=== PATIENT | male | born 1940 | race Caucasian/White ===

== ENCOUNTER 2024-01-24 22:00 | Inpatient (IN) | payer OTHER, SELFPAY ==
[2024-01-24 17:04] VITALS: BP 155/65
[2024-01-24 17:07] VITALS: BP 155/65
[2024-01-24 17:10] VITALS: BMI 25.9
[2024-01-24 17:36] LABS: % Basophils 0.4 % (0-2); % Eosinophils 2.8 % (0-6); % Immature Granulocytes 0.6 % (0-0.5); % Lymphocytes 15.7 % (20.5-51.1); % Monocytes 6.9 % (1.7-9.3); % Neutrophils 73.6 % (42.2-75.2); Absolute Eosinophils 0.3 10^3/uL (0-0.7); Absolute Immature Granulocytes 0.1 10^3/uL (0-0.05); Absolute Lymphocytes 1.4 10^3/uL (1.2-3.4); Absolute Monocytes 0.6 10^3/uL (0.1-0.6); Absolute Neutrophils 6.7 10^3/uL (1.4-6.5); Hematocrit 38.4 % (39.0-52.0); Hemoglobin 13.3 g/dL (13.0-18.0); Mean Corp Hgb Conc. 34.6 g/dL (33.0-37.0); Mean Corpuscular Volume 95.3 fL (80.0-94.0); Mean Platelet Volume 10.4 fL (7.4-10.4); Nucleated Red Blood Cells % 0 % (-); Platelet Count 147 10^3/uL (130-400); Red Blood Cell Count 4.03 10^6/uL (4.70-6.10); Red Cell Dist. Width 14.2 % (11.5-14.5)
[2024-01-24 17:50] LABS: ALT (SGPT) 50 U/L (0-50); AST (SGOT) 36 U/L (17-59); Albumin 3.7 g/dl (3.5-5.0); Alkaline Phosphatase 113 U/L (38-126); Blood Urea Nitrogen 18 mg/dl (9-20); Calcium 9.4 mg/dl (8.4-10.2); Carbon Dioxide 26 mmol/L (22-30); Chloride 109 mmol/L (98-107); Estimated Creatinine Clearance 61 ml/min; Glucose 95 mg/dl (70-99); Potassium 4.3 mmol/L (3.5-5.1); Sodium 140 mmol/L (135-145); Total Protein 6.3 g/dl (6.3-8.2); eGFR > 60.00
--- NOTE | 2024-01-24 18:08 | ED.CVA ---
History of Present Illness
General
Chief Complaint: CVA/TIA Symptoms
Source: patient, records, family, [facility] records
Exam Limitations: clinical condition
Time Seen by Provider: 01/24/24 17:04
Nursing documentation reviewed up to this point in time: agreed with
Onset of Stroke Symptoms
Onset of symptoms known: No
Time pt last seen normal is known: Yes
Date last time pt seen normal: 01/23/24
Travel History
Have you had any contact with someone who has COVID-19?: No
Do you have any symptoms of coronavirus? Fever > 100 degrees, chills, cough, shortness of breath, sore throat, loss of taste or smell, muscle aches, or headache?: No
History of Present Illness
History of Present Illness:
83-year-old male with a past medical history of hyperlipidemia, dementia who [facility] of right hemiparesis and aphasia. His family at bedside aids with history, he is somewhat limited
because of aphasia. He was in [facility] for rehab due to ambulatory dysfunction and falls. He had been doing well, walking with a walker and the plan was for him to return home where he lives independently in an apartment. Apparently today
when family came to pick him up to take him home he was noted to have right-sided weakness and aphasia. Onset somewhat unclear�it sounds like was normal last night and according to staff did full physical therapy without issues yesterday. They saw
him visibly this morning and he seemed to look well but no long conversation unclear if he had any speech issues. Family came to pick him up at around 2 PM and deficits noted and patient was sent to the ER. He is not on blood thinners.
Past History
Past History
ED Past Medical History: HTN
ED Past Surgical History: None
Review of Systems
Review of Systems
Unable to obtain full review of systems at this time due to: other (Aphasia)
All Other Systems: Not applicable
Phy Exam
Physical Exam
Physical Exam:
General: Awake, alert, oriented to person and place but was not able to tell me the month; no acute distress
Head: Normocephalic, atraumatic
Eyes: Conjunctiva normal, EOMI, pupils equal round and reactive to light bilaterally
Throat: Airway intact, handling secretions
Neck: Trachea midline, supple without meningismus
Lungs: Clear to auscultation bilaterally, no wheezing, rales, rhonchi
Heart: Regular rate and rhythm, no murmurs, gallops, or rubs
Abd: Soft, non distended, nontender
Neuro: Cranial nerves intact 2 through 12, speech is fluid without dysarthria but he does have moderate expressive aphasia; motor function intact left upper extremity, slight drift in the left lower extremity; patient has significant drift in the
right upper extremity and only slight effort to gravity in the right lower extremity
Skin: no rash
Extremities: No edema in extremities, equal pulses in all extremities
Scores
NIH Stroke Score
Level of Consciousness: 0 - Alert
LOC Questions: 2-Neither correct
LOC Commands: 1-Performs one correctly
Best Horizontal Gaze: 0-Normal
Visual Lewis: 0=Normal, no visual loss
Facial Palsy: 0=Normal, symmetrical
Motor - Right Arm: 1=Drift < 10 seconds
Motor - Left Arm: 0=No drift 10 seconds
Motor - Right Le-None vs. gravity
Motor - Left Le-Drift < 5 seconds
Limb Ataxia: 0-Absent
Sensation: 0-Normal
Best Language: 2-Severe aphasia
Dysarthria: 0-Normal
Extinction and Inattention: 0-No abnormality
Total Score:: 10
Thrombolytic Contraindication
Inclusion and Exclusion criteria reviewed: Yes
Reasons for NON-Tx with Thrombolytics ABSOLUTE Exclusions: Greater than 4.5 hrs from onset of sxs
Heart Failure Risk
Heart Failure Risk Score: Not Applicable
Heart Score for Chest Pain Patients
STEMI patient?: Not applicable
Withdrawal Assessment of Alcohol
Withdrawal Assessment Completed?: Not applicable
Course
Orders/Labs/Results
Orders:
Orders
01/24/24 17:13
Electrocardiogram (*1) Urgent
Reason for Study: TIA/Stroke
01/24/24 17:14
EKG- Treatment ONCE
01/24/24 17:19
CT Head W/o Iv Contrast Urgent
Comment:
Reason For Exam: right sided weakness
01/24/24 17:26
CMP [Comprehensive Metabolic Panel] Urgent
Complete Blood Count/With Diff Routine
01/24/24 18:09
CT Brain Perfusion Urgent
Comment:
Reason For Exam: right hemiparesis, aphasia
CT Head & Neck Angio W/wo IV Urgent
Comment:
Reason For Exam: right hemiparesis
01/24/24 18:11
Aspirin 325 mg PO NOW STA
01/24/24 19:50
Urinalysis Reflex To Culture Urgent
Date Specimen was Collected: 01/24/24
Time Specimen was Collected: 19:23
Urine Microscopic Reflex Cult Urgent
Urine Culture Urgent
REAL Source: U
Specimen Description:
Date Specimen was Collected: 01/24/24
Time Specimen was Collected: 19:23
01/24/24 20:25
NEUROLOGY CONSULT Urgent
Consulting Provider: Chuckie Nicole
Was physician already notified: Yes
01/24/24 20:26
Aspirin 300 mg RECTAL NOW STA
01/24/24 21:13
Admit/Transfer Patient As Directed
Co-Sign Provider:
Level of Care: Inpatient admission
Assign to:: Telemetry
Physician / Group: Dr. Villa
Diagnosis: CVA
Reason for Telemetry: CVA/TIA
Date to Stop Telemetry: 01/27/24
Time to Stop Telemetry: 11:00
Reason for Hospitalization: Patient presented with right side weakness and aphasia.
Expected length of stay greater than two midnights?: Yes
ELOS- Estimated Length of Stay in days: 2
I certify the patient meets the requirements for IP care: Yes
01/24/24 21:14
Code Status As Directed
Resuscitation Status: Do not resuscitate
Reached after discussion with pt or family/Healthcare POA: Yes
DNR Bracelet Application ONCE
01/24/24 22:24
Acetaminophen [Tylenol/Feverall] 650 mg RECTAL Q4HPRN PRN
Acetaminophen [Tylenol] 650 mg PO Q4HPRN PRN
01/24/24 22:24
Echo 2D MMode Color/Doppler Routine
Reason for Study: stroke/TIA
Case Management Consult ONCE
Case Management Consult: Discharge Planning
Comment: stroke/tia
DIETARY CONSULT Routine
Reason for Consult: stroke/TIA
Negative Turner Apprentice Urgent
MR Brain Without Contrast Routine
Comment:
Reason For Exam: stroke/TIA
OK for patient to be off Cardiac Monitoring for MRI: Yes
Recent pill cam endoscopy?: No
Activity As Directed
Activity Level: Out of Bed-Early Mobility
NIH Stroke Scale As Directed
Directions: Per protocol
Comment: every shift and with any change in condition or mental status
Neurological Checks As Directed
Frequency: q4h
Additional Instructions:: q4h x 24h upon admission to the floor, then qshift & with any change in condition
and mental status
Patient Education As Directed
Type: Stroke education packet
Comment: provide to patient and family
Pneumatic Compression Sleeves As Directed
Type: Knee high
Swallow Screening CVA/TIA ONLY As Directed
Comment: NPO until swallowing screening completed
If patient FAILS swallow screening:: NPO, Speech Therapy consult, Aspiration Precautions
If patient PASSES swallow screening, diet:: Cholesterol Lowering
Above diet order entered?: No- failed screening
Vital Signs As Directed
Frequency: Per unit guidelines
Ot Eval And Treat Routine
Pt Eval And Treat Routine
Activity Level: Out of Bed-Early Mobility
Speech Therapy Eval & Treat Routine
DX Deep Vein Thrombosis Video Routine
01/25/24 06:00
Basic Metabolic Panel IN AM
Cardiovascular Evaluation IN AM
Complete Blood Count/No Diff IN AM
Glycohemoglobin (HgbA1c) IN AM
01/25/24 08:00
Aspirin Low Dose EC [Aspir Low (Enteric Coated)] 81 mg PO DAILY
Clopidogrel Bisulfate [Plavix] 75 mg PO DAILY
01/25/24 18:00
Enoxaparin Sodium [Lovenox] 40 mg SC QPM
01/25/24 20:00
Atorvastatin [Lipitor] 40 mg PO DAILY@1999
01/27/24 11:00
DC Protocol for Telemetry ONCE
Abnormal Lab Results
01/24/24 01/24/24
17:26 19:50
RBC 4.03 L 10^6/uL
(4.70-6.10)
Hct 38.4 L %
(39.0-52.0)
MCV 95.3 H fL
(80.0-94.0)
MCH 33.0 H pg
(27.0-31.0)
Abs Immat Gran (auto) 0.1 H 10^3/uL
(0-0.05)
Absolute Neuts (auto) 6.7 H 10^3/uL
(1.4-6.5)
Immature Gran % 0.6 H %
(0-0.5)
Lymphocytes % 15.7 L %
(20.5-51.1)
Chloride 109 H mmol/L
(98-107)
Urine Ketones 2+ A
(Negative)
Ur Occult Blood Reflex 1+ A
(Negative)
Leukocyte Esterase Rfl 1+ A
(Negative)
Urine RBC 3-6 A /HPF
(0-2)
Urine WBC (Reflex) 21-25 A /HPF
(0-5)
Urine Bacteria (Reflex) Moderate A
(Negative)
01/24/24 17:26
01/24/24 17:26
Vital Signs
Initial and Last Documented VS:
Initial Vital Signs
Temp Pulse Resp BP Pulse Ox
36.7 C 67 13 155/65 96
01/24/24 17:04 01/24/24 17:04 01/24/24 17:04 01/24/24 17:04 01/24/24 17:04
Last Documented Vital Signs
Temp Pulse Resp BP Pulse Ox
37.0 C 77 20 157/73 95
01/24/24 22:47 01/24/24 22:47 01/24/24 22:47 01/24/24 22:47 01/24/24 22:47
MDM/Problems Addressed
Differential Diagnosis Includes:
CVA, complex migraine, seizure, hemorrhage, brain mass
MDM/Problems Addressed:
83-year-old male with a past medical history of hyperlipidemia, dementia who presents to the emergency room from [facility] for evaluation of right hemiparesis and aphasia. Onset somewhat unclear�it sounds like was normal last night and
today early afternoon noted to have right-sided weakness and aphasia. Hypertensive but otherwise normal vitals. Physical exam as above. NIH stroke scale 10. IV placed and labs sent off including a CBC and a CMP. EKG shows sinus rhythm. Sent
for CT head�no hemorrhage on my review, awaiting final radiology report. Case discussed with neurology as his presentation is concerning for an acute stroke�with onset unclear patient is not a candidate for tenecteplase. Recommended proceeding
with a CTA head and neck as well as a CT perfusion study. Treat with full dose aspirin. Reassess after the above. Anticipate admission pending initial assessment.
CTA head and neck no dissection or large vessel occlusion. Discussed with neurology who recommended full dose aspirin admit for continued treatment. Case discussed with hospitalist for admission.
Chronic conditions affecting care:
Hyperlipidemia�higher risk for stroke
Acute Exacerbation and/or Progression of Chronic Illness:
Acutely hypertensive�permissive in the setting of stroke
*Radiology
Radiology exam reviewed: preliminary read by ED provider and radiology read reviewed
*Pulse Oximetry
Patient hypoxic: no
*EKG
Interpreted by ED Provider?: Yes
Heart Rate: 66
Rate: normal
Rhythm: sinus
Hardy: left axis deviation
QRS Pattern: left vent hypertrophy
Ischemia: non-specific ST changes
*Critical Care Note
Total Time (30-74mins, 75-104mins- exclusive of procedures): Not Applicable
Data Reviewed
Source: patient, records (Records from [facility]) and family (Son and [id number])
Prescriptions/Medications Considered But Not Given:
Considered his candidacy for tenecteplase but after discussion with neurology patient is not a candidate for thrombolytics
Patient Management
Discussion with other providers: Hospitalist (Discussed with hospitalist) and Dormitory Counselor (Discussed with neurology)
Escalation/DeEscalation of care consider admission/obs:
Admission indicated
ED Attending Note
-
Portions of this chart may have been created with voice recognition software.� Occasional wrong word or��sound alike� substitutions may have occurred due to the inherent limitations of voice recognition software.
Discharge Plan
Departure
Patient Disposition: Admit
Date of Disposition: 01/24/24
Time of Disposition: 20:36
Admit to doctor: Villa
Presentation/result/management discussed w/ accepting MD/DO: Hospitalist
Patient with high blood pressure during this ER visit?: Yes
Discharge Problem:
CVA (cerebrovascular accident)
Interventions
Interventions:
*Risk Screen - Suicide Last Done: 01/24/24 17:05
*General Assessment Last Done: 01/24/24 17:10
*Neglect/Abuse Screening Last Done: 01/24/24 17:05
*ED COVID-19 Vaccine History Last Done: 01/24/24 17:10
*Nursing Disposition Last Done: 01/24/24 22:23
ED- Pulmonary Assessment Last Done: 01/24/24 17:10
ED- Neurological Assessment Last Done: 01/24/24 18:53
ED- Cardiac Assessment Last Done: 01/24/24 17:10
Discharge Date and Time
Discharge Date/Time: 01/24/24 22:24
[2024-01-24 18:57] VITALS: BP 145/66
[2024-01-24 19:56] LABS: Urine Albumin Negative (Neg - Trace); Urine Bilirubin Negative (Negative); Urine Character Clear (Clear); Urine Color Yellow; Urine Glucose Negative (Negative); Urine Ketone 2+ (Negative); Urine Leukocyte 1+ (Negative); Urine Nitrite Negative (Negative); Urine Occult Blood 1+ (Negative); Urine Urobilinogen Negative (Neg - 1+)
[2024-01-24 20:15] LABS: Urine Bacteria Moderate (Negative); Urine White Cell 21-25 /HPF (0-5)
--- NOTE | 2024-01-24 21:17 | HPS.HSE ---
Family Physician
-
Family Physician: Morgan Lerma
Chief Complaint
-
Aphasia and right-sided weakness.
History of Present Illness
Patient 83 years old male [id number] with history of hyperlipidemia, TIA/CVA, aortic aneurysm, probable mild vascular cognitive deficits, presented to the hospital with sudden onset of right-sided weakness and aphasia. Most of the
information gathered from family at the bedside and EMR since patient has aphasia and unable to provide me with accurate information. Patient lives at [facility] and he was about to be discharged today and when his family went to
pick him up noticed that he was not able to shake his hand on the right side and also he was repeating same words when asked questions and also noticed he had some slurred speech. Last time seen normal was around 11 PM last night by staff. Family
saw him with right-sided weakness and aphasia around 2 PM today. No fevers or chills. No chest pain or shortness of breath. In the ER, CT of the head no acute intracranial abnormality, CT of the head and neck no evidence of high-grade stenosis or
occlusion. He was referred to hospitalist for further evaluation.
Medical History
Past Medical History
Past Medical History: Reports Other (Hyperlipidemia, CVA/TIA, aortic aneurysm, interstitial lung disease.)
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
Social History
Tobacco: Former Smoker
Alcohol: Occasional
Drug: None
Family History
Family History: Not pertinent
Allergies / Home Medications
Allergies reflects when Allergies were last updated in [employer].
Home Medications with original date entered in [employer]
Allergy/Medication List:
Allergies
Allergy/AdvReac Type Severity Reaction Status Date / Time
No Known Allergies Allergy Verified 03/09/23 20:07
Home Medications
acetaminophen 500 mg tablet 1,000 mg PO TID@0800,1400,2000 01/24/24
aspirin 81 mg tablet,delayed release 81 mg PO DAILY 01/24/24
atorvastatin 40 mg tablet 40 mg PO DAILY@199901/24/24
diclofenac sodium 1 % topical gel 1 g topical BID PRN mild pain 01/24/24
Review of Systems
-
Unable to obtain full review of systems at this time due to: Other (Aphasia)
Physical Exam
Vital Signs
Vital Signs
Temp Pulse Resp BP Pulse Ox
98.0 F 73 20 145/66 94
01/24/24 17:04 01/24/24 17:30 01/24/24 17:30 01/24/24 18:57 01/24/24 19:47
Physical exam:
General: Acutely ill
HEENT: Normocephalic, Atraumatic and Moist Mucous Membranes
Respiratory: Clear to Auscultation; Negative Wheezes, Rales or Rhonchi
Cardiac: Regular Rhythm and S1/S2
GI: Soft, Nontender and Nondistended
Musculoskeletal: No Clubbing, No Cyanosis and No Edema
Neuro: Awake, Alert and Oriented. Right upper extremity weakness 4 out of 5, mild sensory deficit on the right, mild left cranial nerve facial deficit and rest of cranial nerves are intact. Aphasia present.
Psych: Calm
Physical Exam
General: Other
Laboratory Results
-
01/24/24 17:26
01/24/24 17:26
Laboratory Results
Total Bilirubin 1.0 mg/dl (0.2-1.3) 01/24/24 17:26
AST 36 U/L (17-59) 01/24/24 17:26
ALT 50 U/L (0-50) 01/24/24 17:26
Alkaline Phosphatase 113 U/L (38-126) 01/24/24 17:26
Data Reviewed
-
CT Scan: Image Personally Visualized and interpreted
Lab Data: Labs Reviewed by me
Impression/Plan
-
IMPRESSION:
Patient 83 years old male with history of hyperlipidemia, TIA/CVA, presented to the hospital with sudden onset of right-sided weakness and aphasia consistent with acute stroke, likely ischemic in nature. Patient will need to be in the hospital
otherwise at high risk of increased morbidity mortality and disability.
PLAN:
Acute stroke:
Not a candidate for TNKase due to being out of the time window.
CT scan of the head no acute intracranial abnormality
CTA of the head and neck no significant stenosis
CT perfusion study
Continue aspirin--> if unable to take oral can do rectal
Will add Plavix for dual antiplatelet therapy for 3 weeks.
Continue statins and check fasting lipids in a.m.
Permissive hypertension
Keep euglycemia and normothermia
Check hemoglobin A1c in a.m.
PT OT and speech therapy eval
Plan for stroke workup including MRI of the brain, echocardiogram, cardiac monitoring.
Monitor NIH stroke scale.
Neurology consulted
Hyperlipidemia:
Continue home statins
LDL in a.m.
Prior history of TIA/CVA:
On aspirin and statins
Abnormal urinalysis:
Pyuria 21-25 WBC and moderate urine bacteria
Currently afebrile and no leukocytosis so hold off on antibiotics but follow-up urine cultures
Low threshold to start antibiotics if any signs of active infection.
DVT prophylaxis:
Lovenox 40 mg SQ daily
CODE STATUS:
DNR and confirmed with family at bedside
Time spent 75 minutes.
[2024-01-24 22:47] VITALS: BP 157/73
--- NOTE | 2024-01-24 22:47 | PTCARENOTE ---
Pt arrived from ED via stretcher and was a puller out to bed w/ son at bedside. Pt is AAOx1- according to son patient was AAOx3 as of yesterday, VSS, and complains of lower back pain when turning due to recent fall. Pt is bedrest due to new onset of
weakness- RN educated patient and placed on bed alarm. Pt is resting comfortably w/ call ch within reach.
[2024-01-24] MEDS: ASPIRIN 300 MG RECTAL (23:53)
[2024-01-24] MEDS: DESENEX/MITRAZOL/ZEASORB 1 APPLIC TOPICAL (23:53)
[2024-01-25] VITALS (8 sets, daily range): BP systolic 124–149; BP diastolic 54–74; PULSE 65–68; O2SAT 92
[2024-01-25 07:23] LABS: Hematocrit 37.2 % (39.0-52.0); Hemoglobin 12.8 g/dL (13.0-18.0); Mean Corp Hgb Conc. 34.4 g/dL (33.0-37.0); Mean Corpuscular Hgb 32.7 pg (27.0-31.0); Mean Corpuscular Volume 94.9 fL (80.0-94.0); Mean Platelet Volume 10.9 fL (7.4-10.4); Platelet Count 139 10^3/uL (130-400); Red Blood Cell Count 3.92 10^6/uL (4.70-6.10); Red Cell Dist. Width 14.2 % (11.5-14.5); White Blood Cell Count 8.3 10^3/uL (4.8-10.8)
[2024-01-25 07:57] LABS: Blood Urea Nitrogen 16 mg/dl (9-20); Calcium 9.2 mg/dl (8.4-10.2); Carbon Dioxide 24 mmol/L (22-30); Chloride 107 mmol/L (98-107); Estimated Creatinine Clearance 61 ml/min; Glucose 84 mg/dl (70-99); HDL Cholesterol 30 mg/dl; LDL Cholesterol, Calculated 62 mg/dl; Potassium 4.2 mmol/L (3.5-5.1); Sodium 139 mmol/L (135-145); Total Cholesterol 115 mg/dl (50-199); Triglyceride 115 mg/dl (10-149); Very Low Density Lipoprotein 23 mg/dl (0-30); eGFR > 60.00
[2024-01-25 09:11] LABS: Glycohemoglobin (HgbA1c) 5.6 % (4.0-5.6)
--- NOTE | 2024-01-25 09:35 | CON.NEURO4 ---
Addendum entered and electronically signed by Chuckie Nicole MD 01/25/24 12:40:
I saw and evaluated patient I reviewed the note by Radha Haddad agree with the findings the following comments:
The patient is a 83-year-old man with a past history of previous right sided temporoparietal ischemic stroke, interstitial lung disease cognitive impairment, hypertension presenting to the hospital with onset of right arm weakness and aphasia. His
last known normal seemed to be the evening of 01/22, brought into the ED with unclear onset of symptoms but clearly seem to have speech difficulty and right arm weakness when his family saw him at 2 PM yesterday afternoon. He was brought into the ER
and was outside the window for tenecteplase and had no large vessel occlusion on CTA of the head and neck.
Patient's family reports consistence with aspirin 81 mg daily since her previous ischemic stroke.
Neurologic examination notable for mild/moderate expressive and receptive aphasia, minimal dysarthria, right arm weakness and drift, minimal right arm and leg weakness without any drift.
CTA of the head and neck with no identifiable large vessel occlusion intracranially no significant carotid stenosis
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 Risk factors are hypertension hyperlipidemia age and previous ischemic stroke. Considerations are atheroembolic source but also need to keep in mind cardioembolic source possibly occult atrial
fibrillation.
Recommendations
-Would continue on aspirin daily, rectal if necessary if not able to take p.o.
-Depending on stroke size on brain imaging would consider addition of clopidogrel for DAPT therapy for short-term of 3 weeks
-Speech physical Occupational Therapy evaluations
-Cardiac telemetry and check transthoracic echocardiogram
-Would pursue cardiac monitoring in the outpatient setting would be reasonable to short-term cardiac monitoring if no arrhythmias are found then would transition to implanted rn cardiac rehab
-MRI brain without contrast
Will follow
Original Note:
Documented by User: Radha Atkinson NP 01/25/24 12:21
Consultation - Neurology 4
-
CONSULTING PHYSICIAN: Arcenio Nicole MD
REFERRING PHYSICIAN: ER/Dr. Rodney
DICTATED BY: HUNG Muñoz
DATE/TIME OF REQUEST: 01/24/24
DATE/TIME OF CONSULTATION: 01/25/24
Reason for Consultation: CVA
History of Present Illness:
This is an 83-year-old right-handed male who has presented to the hospital as a stroke alert with report of aphasia and right arm weakness. Patient is a limited historian due to aphasia/confusion and some of this information is obtained from his
[id number] at bedside. Patient lives in an apartment at [facility] and has a home health aide or his [id number] with him daily for assistance. He has been in their rehab section for the past week due to ambulatory dysfunction and
frequent falls. At baseline he has cognitive impairment/concern for dementia, and ambulates with a rolling walker. Nursing staff reports last seeing him at his baseline on 01/23/24 at 2300. Yesterday (01/24/24), his family came to pick him up at 1400
as he was being discharged home, and noted that he was repeating his words, unable to answer questions, and his right arm/leg were profoundly weak, prompting him to be sent to the ER for evaluation. CT head was obtained and is negative for any acute
abnormalities but demonstrates an old right temporoparietal ischemic infarct. CTA head/neck was negative for LVO. NIHSS in the ER was 10. Patient was not a candidate for TNK/IAT due to outside of time window and no LVO for intervention. He failed
his swallow evaluation and was provided a full dose rectal aspirin in the ER. Today (01/25/24), patient has moderate receptive/expressive aphasia and RUE weakness/neglect. ROS is not accurate due to aphasia, but he offers no complaints. About 8 years
ago (2015) he developed left facial drooping and was hospitalized at [facility] for a few days for an ischemic stroke. His facial droop resolved and he has no other deficits from that event. He has been taking aspirin 81mg daily since then. In 2020 he was
hospitalized for an extended period and was reportedly not moving at all for one week, unclear cause. He had Covid several months after that and had a decline cognitively, and was subsequently moved to [facility] in 2021.
Past Medical History: Right temporoparietal ischemic stroke, cognitive impairment, HTN, HLD, pulmonary nodules, interstitial lung disease, ambulatory dysfunction, frequent falls
Surgical History: AAA repair, knee replacement
Family History: Reviewed and noncontributory.
Social History: Former smoker. Denies alcohol and illicit drug use. Lives independently in an apartment, walks with a walker.
Allergies: No known allergies.
Home Medications: See below.
Review of Symptoms:
Patient denies any fever, headache, chest pain, shortness of breath, GI or symptoms.
�Per the HPI.�All systems are reviewed negative except above.
Physical Exam:
The patient is afebrile, abdomen is nondistended, breathing is unlabored, skin is warm and dry, no edema.
NIH Stroke Scale:
I performed the NIH stroke scale on the patient on 01/25/24 at 0930. The patient scored 9 points on the NIH stroke scale assessment, which were assigned as follows: See below.
Neurologic Examination:
The patient is awake, alert and oriented to name only, not time/place/situation. He is able to follow some one-step commands and answer questions rare questions appropriately. Unable to perform two-step commands. There is severe
expressive/receptive aphasia. No dysarthria. On cranial nerve assessment, pupils are 3 mm bilateral, round and reactive to light and accommodation. Visual lewis are challenging to assess but appear grossly intact. Extraocular movements are intact.
There is no facial asymmetry. Hearing is intact bilaterally to normal conversation volume. Tongue palate and uvula are midline. Motor strengths are 5/5 left upper, 4/5 right upper, 5/5 left lower, and 5-/5 right lower extremities on medical research
Court[place] scale. There is drift in the RUE. No involuntary movement noted. Deep tendon reflexes are 1+ bilateral upper and lower extremities and Babinski is absent bilaterally. SHARMIN sensation. Patient has right-sided neglect to command and with touch.
Coordination is intact by finger to nose in the LUE, not the RUE. SHARMIN heel to landers.
Lab Results: See below.
Neuro Imaging:
1. CT Head 01/24/24: No acute intracranial abnormality. Region of low attenuation at the right temporoparietal junction measuring 2.3 cm in length, near CSF attenuation and favored to represent a chronic infarct.
2. CTA head/neck 01/24/24: No CT evidence for high-grade stenosis or occlusion of the arterial vasculature in the head or neck. Calcified atherosclerosis at the bilateral carotid bifurcations contributing to less than 50% stenosis.
3. CT Perfusion 01/24/24: See report.
Differentials for the patient's presentation include:
1. Acute left hemisphere ischemic infarct likely producing RUE weakness/neglect and aphasia.
2. CT head imaging suggestive of an old right temporoparietal junction ischemic stroke.
3. Chronic ambulatory dysfunction.
4. Cognitive impairment/possible dementia
Patient has the following risk factors for their symptoms: HTN, HLD, hx stroke
IV Tenecteplase/IAT candidacy: Patient was not a candidate for TNK/IAT due to outside of time window and no LVO for intervention.
Recommendations:
-DAPT with aspirin 81mg and Plavix 75mg daily for 21 days. After 21 days, discontinue aspirin and continue Plavix 75mg daily only, indefinitely, as this event occurred while on aspirin.
-Goal normotension as this event likely occurred 24 hours ago.
-MRI brain noncontrast pending.
-TTE pending.
-Monitor on telemetry. Will likely need outpatient Holter cardiac monitoring for several weeks as an outpatient.
-LDL goal <70. LDL is 62. Okay to continue home atorvastatin as LDL is at goal.
-Goal normoglycemia, hbA1c is 5.6.
-PT/OT/ST evaluations.
-NIHSS and neurological checks per unit guidelines.
-Provide patient's family with a stroke education packet.
-DVT prophylaxis.
-Will follow pending results.
Discussed patient care with: Dr. Nicole, the patient, patient's family
Vital Signs and Labs
-
Vital Signs and Labs:
Vital Signs
Temp Pulse Resp BP Pulse Ox
98.6 F 69 16 148/69 92
01/25/24 07:00 01/25/24 07:00 01/25/24 07:00 01/25/24 07:00 01/25/24 07:00
Lab Results
01/25/24 06:11
01/25/24 06:11
Sodium 139 mmol/L (135-145) 01/25/24 06:11
Potassium 4.2 mmol/L (3.5-5.1) 01/25/24 06:11
BUN 16 mg/dl (9-20) 01/25/24 06:11
Glucose 84 mg/dl (70-99) 01/25/24 06:11
Calcium 9.2 mg/dl (8.4-10.2) 01/25/24 06:11
LDL Cholesterol, Calc 62 mg/dl 01/25/24 06:11
Medications
-
Active Medications
Generic Name Dose Route Start Last Admin
Trade Name Freq PRN Reason Stop Dose Admin
Acetaminophen 650 mg 01/24/24 22:24
Acetaminophen 650 Mg Rectal Suppository RECTAL 02/21/24 22:23
Q4HPRN PRN
HODGE, mild pain, or temp >100.4F
Acetaminophen 650 mg 01/24/24 22:24
Acetaminophen 325 Mg Tablet PO 02/21/24 22:23
Q4HPRN PRN
HODGE, mild pain, or temp >100.4F
Aspirin 81 mg 01/25/24 08:00
Aspirin 81 Mg (Enteric Coated) Tablet PO 02/22/24 07:59
DAILY SUSY
Atorvastatin Calcium 40 mg 01/25/24 20:00
Atorvastatin (Lipitor) 40 Mg Tablet PO 02/22/24 19:59
DAILY@2000 SUSY
Clopidogrel Bisulfate 75 mg 01/25/24 08:00
Clopidogrel 75 Mg Tablet PO 02/22/24 07:59
DAILY SUSY
Enoxaparin Sodium 40 mg 01/25/24 18:00
Enoxaparin Sodium 40 Mg/0.4 Ml Syringe SC 02/22/24 17:59
QPM SUSY
Miconazole Nitrate 0 applic 01/24/24 23:00 01/25/24 09:40
Miconazole Powder Bottle TOPICAL 02/21/24 22:59 1 applic
BID SUSY Administration
Sodium Chloride 0 flush 01/24/24 23:00 01/25/24 09:40
Sodium Chloride 0.9% (Flush) Syringe IV 02/21/24 22:59 2 flush
PER PROTOCOL SUSY Administration
Home Medications
�Medication �Instructions �Recorded
acetaminophen 500 mg tablet 1,000 mg PO TID@0800,1400,199901/24/24
aspirin 81 mg tablet,delayed 81 mg PO DAILY 01/24/24
release
atorvastatin 40 mg tablet 40 mg PO DAILY@199901/24/24
diclofenac sodium 1 % topical gel 1 g topical BID PRN mild pain 01/24/24
NIH Stroke Score
Subsequent NIH Scale
Date of Subsequent NIH Scale: 01/25/24
Time of Subsequent NIH Scale: 09:30
NIH Stroke Score
Level of Consciousness: 0 - Alert
LOC Questions: 2-Neither correct
LOC Commands: 1-Performs one correctly
Best Horizontal Gaze: 0-Normal
Visual Lewis: 0=Normal, no visual loss
Facial Palsy: 0=Normal, symmetrical
Motor - Right Arm: 1=Drift < 10 seconds
Motor - Left Arm: 0=No drift 10 seconds
Motor - Right Le-No drift 5 seconds
Motor - Left Le-No drift 5 seconds
Limb Ataxia: 1-Present in one limb
Sensation: 0-Normal (SHARMIN)
Best Language: 2-Severe aphasia
Dysarthria: 0-Normal
Extinction and Inattention: 2-Total jose inattention
Total Score:: 9
Modified Kenji (mRS) Score
Modified Kenji Scale (mRS): Moderately severe disability. Unable to attend to bodily needs/walk.
Score: 4
Alteplase Contraindication
Inclusion and Exclusion criteria reviewed: Yes
Reasons for NON-Tx with Thrombolytics ABSOLUTE Exclusions: Greater than 4.5 hrs from onset of sxs
IAT Contraindications: Imaging doesn't show large vessel occlusion as cause of stroke

Documented by User: Chuckie Nicole MD 01/25/24 12:36
NIH Stroke Score
NIH Stroke Score
Total Score:: 9
Modified Uneeda (mRS) Score
Score: 4
[2024-01-25] MEDS: OFIRMEV 100 IV (09:39)
[2024-01-25] MEDS: FLUSH (NSS) 2 FLUSH IV (09:40)
[2024-01-25] MEDS: DESENEX/MITRAZOL/ZEASORB 1 APPLIC TOPICAL ×2 (09:40→20:30)
--- NOTE | 2024-01-25 09:48 | PTOTSP ---
Addendum entered and electronically signed by ST Graham 01/25/24 12:43:
Addendum: Suspect functional oral/pharyngeal swallow to initiate diet below based on clinical bedside swallowing evaluation.
Recommend:
1. Regular (pick soft foods, avoid mixed consistences), thin liquids
2. Meds - as best tolerated; consider in applesauce
3. Strategies: full supervision, upright as close to 90 degrees as tolerated, small single sips/bites, liquid wash as needed to clear oral cavity
4. Oral care 3x daily
5. Dysphagia f/u at the acute care level for education and to ensure appropriate diet.
Original Note:
LENS GENERATING MACHINE TENDER Evaluation
Quick Aphasia Battery Form 1 administered. QAB overall - 2.99. Patient with severe mixed aphasia with some ability to repeat at the word to phrase level. Patient unable to read. Writing not assessed (right hand dominant and right hand weak). No
dysarthria observed. Baseline history of mild cognitive impairments noted. Urine analysis abnormal this admission.
Strategies: Give simple commands paired with direct models. Use yes/no questions. Give binary choices (i.e., 'Do you want water or juice?').
Recommend:
1. Continued assessment at the acute care level.
2. Therapy after D/C from the acute care level. Inpatient rehab appropriate.
3. Swallow evaluation as able/appropriate.
--- NOTE | 2024-01-25 10:44 | W.PN.HOSP.TC ---
Today's Communication/Plan
-
see plan
Assessment / Plan
Assessment / Plan
IMPRESSION:
Patient 83 years old male with history of hyperlipidemia, TIA/CVA, recent lumbar compresion fracture presented to the hospital with sudden onset of right-sided weakness and aphasia consistent with acute stroke, likely ischemic in nature. TPA not
given given unclear time of onset.
PLAN:
Acute stroke:
-Not a candidate for TNKase due to being out of the time window.
-CT scan of the head no acute intracranial abnormality
-CTA of the head and neck no significant stenosis
-CT perfusion study
-continue aspirin--> if unable to take oral can do rectal
-continue Plavix for dual antiplatelet therapy for 3 weeks.
-Continue statins and check fasting lipids in a.m.
-Permissive hypertension
-Check hemoglobin A1c in a.m.
-PT OT and speech therapy eval
-Plan for stroke workup including MRI of the brain, echocardiogram, cardiac monitoring.
-Monitor NIH stroke scale.
-Neurology consulted
Hyperlipidemia:
Continue home statins
LDL in a.m.
Prior history of TIA/CVA:
On aspirin and statins
Lumbar spine compression fracture
-recently diagnosis
-difficult with mobility
-resume lidocaine patch
-topical diclofenac PRN
Abnormal urinalysis:
Pyuria 21-25 WBC and moderate urine bacteria
Currently afebrile and no leukocytosis so hold off on antibiotics but follow-up urine cultures
Low threshold to start antibiotics if any signs of active infection.
DVT prophylaxis:
Lovenox 40 mg SQ daily
CODE STATUS:
DNR and confirmed with family at bedside
Anticipated Discharge: 24 - 48 hours
Subjective/Interval History
-
Date of Service: January 25, 2024
back pain now on-going for 2 weeks, reason he was at rehab; hx compression fracture
right arm strength improving per daughter, expressive aphasia mildly improved
Objective Data
-
Labs:
Laboratory Results
01/25/24
06:11
WBC 8.3
Hgb 12.8 L
Hct 37.2 L
Plt Count 139
Sodium 139
Potassium 4.2
Chloride 107
Carbon Dioxide 24
BUN 16
Creatinine 0.8
Glucose 84
Calcium 9.2
Vital Signs:
Vital Signs
Temp Pulse Resp BP Pulse Ox
98.6 F 69 16 148/69 92
01/25/24 07:00 01/25/24 07:00 01/25/24 07:00 01/25/24 07:00 01/25/24 07:00
Review of Systems
-
History Source: Patient
All other systems: Reviewed and negative
Physical Exam
-
General: No Apparent Distress
HEENT: PERRLA
Respiratory: Clear to Auscultation; Negative Wheezes
Cardiac: S1/S2
GI: Soft and Nontender
Musculoskeletal: No Edema
Skin: Warm and Dry; Negative Rash
Neuro: AO x 3 and Other (needs help with orientation to place; + right upper extremities weakness, + expressive aphasia )
Psych: Calm
Data Reviewed
-
Diagnostic Radiology: Report Reviewed by me
Labs: Labs Reviewed by me
[2024-01-25 12:07] LABS: TSH Reflex To Free T4 1.83 uIU/ml (0.47-4.68)
[2024-01-25 12:11] LABS: Ferritin 91.3 ng/ml (17.9-464.0)
[2024-01-25] MEDS: LIDOCAINE 4% PATCH 1 PATCH TOPICAL (12:23)
[2024-01-25] MEDS: ASPIR LOW (ENTERIC COATED) 81 MG PO (12:31)
[2024-01-25] MEDS: PLAVIX 75 MG PO (12:31)
[2024-01-25 12:42] LABS: Folate > 20.0 ng/ml (2.76-20)
--- NOTE | 2024-01-25 15:31 | CM ---
Alert awake forgetful patient who lives at [facility] independent living.Met with son Cedrick at bedside.bathroom. He is assisted in all activities of daily living.Son is unsure if he wants [facility] at pr.Spoke with Olinda at [facility] she is
aware.
No VN hx / [facility] SN[facility] history
Pharmacy [facility] at [facility]
PCP DR Kaba
PLAN Probable SNF family will let CM know
[2024-01-25] MEDS: DICLOFENAC 1% TOPICAL GEL 2 GRAM TOPICAL ×2 (15:50→18:03)
[2024-01-25] MEDS: TYLENOL 1000 MG PO ×2 (17:05→21:45)
[2024-01-25] MEDS: LOVENOX 40 MG SC (18:02)
[2024-01-25] MEDS: LIPITOR 40 MG PO (20:29)
[2024-01-25] MEDS: DICLOFENAC 1% TOPICAL GEL 100 GRAM TOPICAL (21:45)
[2024-01-26] VITALS (7 sets, daily range): BP systolic 104–137; BP diastolic 48–60; PULSE 75; O2SAT 96
[2024-01-26] MEDS: ASPIR LOW (ENTERIC COATED) 81 MG PO (09:30)
[2024-01-26] MEDS: PLAVIX 75 MG PO (09:30)
[2024-01-26] MEDS: TYLENOL 1000 MG PO ×3 (09:30→21:41)
[2024-01-26] MEDS: DICLOFENAC 1% TOPICAL GEL 100 GRAM TOPICAL (09:30)
[2024-01-26] MEDS: DESENEX/MITRAZOL/ZEASORB 1 APPLIC TOPICAL ×2 (09:31→19:39)
[2024-01-26] MEDS: FLUSH (NSS) 1 FLUSH IV (09:31)
[2024-01-26] MEDS: LIDOCAINE 4% PATCH 1 PATCH TOPICAL (11:31)
--- NOTE | 2024-01-26 11:36 | W.PN.NEURO.1 ---
Today's Communication / Plan
-
await official mri brain read
continue dapt, atorvastatin
Neuro Assessment/Plan
Assessment
The patient is a 83-year-old man with a past history of previous right sided temporoparietal ischemic stroke, interstitial lung disease cognitive impairment, hypertension presenting to the hospital with onset of right arm weakness and aphasia. His
last known normal seemed to be the evening of 01/22, brought into the ED with unclear onset of symptoms but clearly seem to have speech difficulty and right arm weakness. He was brought into the ER and was outside the window for tenecteplase and had
no large vessel occlusion on CTA of the head and neck.
Patient's family reports consistence with aspirin 81 mg daily since her previous ischemic stroke. This stroke was about 8 years ago and was treated at [place]. Etiology unknown per his DIL.
His aphasia and right sided weakness have significantly improved compared to yesterday.
CTA of the head and neck with no identifiable large vessel occlusion intracranially no significant carotid stenosis
MRI brain pending
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 Risk factors are hypertension, hyperlipidemia, age, and previous ischemic stroke. Considerations are atheroembolic source but also need to keep in mind cardioembolic source possibly occult atrial
fibrillation.
Plan
Recommendations
-continue DAPT therapy for short-term of 3 weeks, then ASA 81mg daily after.
-await MRI brain official read--reviewed my prelim read with patient and family
-Speech physical Occupational Therapy evaluations; family interested in having him go to [place] after d/c
-Cardiac telemetry; reviewed echo results
-already on atorva 40mg qhs; continue; ldl at goal at 62; goal is <70
-hgba1c is normal at 5.6.
-Would pursue cardiac monitoring in the outpatient setting would be reasonable to short-term cardiac monitoring if no arrhythmias are found then would transition to implanted electronic device monitor; will need to see cardiology as an outpatient; does not
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
-needs op neurology f/u in 2-3 mos
Will follow prn, please call with further questions
Subjective/Objective
Subjective Data
Date of Service: January 26, 2024
aphasia and R arm weakness significantly improved compared to yesterday's exam; COLLIN has noticed some issues with his depth perception
Objective Data
Vital Signs
Temp Pulse Resp BP Pulse Ox
97.2 F 54 18 115/48 96
01/26/24 07:55 01/26/24 07:55 01/26/24 07:55 01/26/24 07:55 01/26/24 07:55
Lab Results
01/25/24 06:11
01/25/24 06:11
Sodium 139 mmol/L (135-145) 01/25/24 06:11
Potassium 4.2 mmol/L (3.5-5.1) 01/25/24 06:11
BUN 16 mg/dl (9-20) 01/25/24 06:11
Glucose 84 mg/dl (70-99) 01/25/24 06:11
Calcium 9.2 mg/dl (8.4-10.2) 01/25/24 06:11
LDL Cholesterol, Calc 62 mg/dl 01/25/24 06:11
Patient Allergies
No Known Allergies Allergy (Verified 03/09/23 20:07)
Physical Exam
-
General: Well Developed, Well Nourished and No Apparent Distress
Extended Neurological Exam
Mood & Affect: Mood Unremarkable and Affect Unremarkable
Attention Span & Concentration: Awake, Alert, Interactive and Other (at times a vague historian)
Memory: Reduced
Tremor: Hand Tremor Absent and Head Tremor Absent
Involuntary Movement: None
Speech: Other (aphasia resolved beyond issue naming one object)
Cranial Nerve II: Left Eye: Pupillary Reactivity Unremarkable and Pupillary Size Unremarkable
Cranial Nerve II: Right Eye: Pupillary Reactivity Unremarkable and Pupillary Size Unremarkable
Cranial Nerves III, IV, : Extraocular Movement: Extraocular Movement Full in all Directions
Cranial Nerve V: Facial Sensation: Facial Sensation Unremarkable to Cold
Cranial Nerve VII: Facial Symmetry: Normal Facial Symmetry
Cranial Nerve VIII: Hearing: Unremarkable Hearing to Normal Conversational Volume
Cranial Nerves IX, X: Palate Movement: Palate Elevation Symmetric
Cranial Nerve XI: Shoulder Shrug: Unremarkable
Cranial Nerve XII: Tongue Protusion: Midline
Muscle Strength, Overall: Other (4/5 in RUE, otherwise full)
Muscle Bulk & Tone: Bulk Unremarkable
Deep Tendon Reflexes: Unremarkable Throughout
Cold Sensation: Unremarkable
Touch Sensation: Unremarkable
Coordination: Dnhqst-usfb-khairc Testing Unremarkable
Babinski Sign: Absent Bilaterally
NIH Stroke Scale
NIH Stroke Score
Date of Subsequent NIH Scale: 01/26/24
Time of Subsequent NIH Scale: 11:30
Level of Consciousness: 0 - Alert
LOC Questions: 2-Neither correct
LOC Commands: 0-Performs both correctly
Best Horizontal Gaze: 0-Normal
Visual Lewis: 0=Normal, no visual loss
Facial Palsy: 0=Normal, symmetrical
Motor - Right Arm: 2=Partial vs. gravity
Motor - Left Arm: 0=No drift 10 seconds
Motor - Right Le-No drift 5 seconds
Motor - Left Le-No drift 5 seconds
Limb Ataxia: 0-Absent
Sensation: 0-Normal
Best Language: 1-Mild aphasia
Dysarthria: 0-Normal
Extinction and Inattention: 0-No abnormality
Total Score:: 5
--- NOTE | 2024-01-26 12:04 | W.PN.HOSP.TC ---
Today's Communication/Plan
-
F/U MRI
F/U repeat PT/OT consults now that back pain better controlled
-appreciate neurology
Assessment / Plan
Assessment / Plan
IMPRESSION:
Patient 83 years old male with history of hyperlipidemia, TIA/CVA, recent lumbar compresion fracture presented to the hospital with sudden onset of right-sided weakness and aphasia consistent with acute stroke, likely ischemic in nature. TPA not
given given unclear time of onset.
PLAN:
Acute stroke:
-Not a candidate for TNKase due to being out of the time window.
-CT scan of the head no acute intracranial abnormality
-CTA of the head and neck no significant stenosis
-CT perfusion study
-continue aspirin--> if unable to take oral can do rectal
-continue Plavix for dual antiplatelet therapy for 3 weeks.
-Continue statin
-F/U MRI results
-PT/OT/ST
Hyperlipidemia:
Continue home statins
LDL 63
Prior history of TIA/CVA
Lumbar spine compression fracture
-recently diagnosis
-difficult with mobility
-resume lidocaine patch
-topical diclofenac PRN
-pain improved morning 01/25
-F/U repeat PT/OT consults
Abnormal urinalysis:
Pyuria 21-25 WBC and moderate urine bacteria
Currently afebrile and no leukocytosis so hold off on antibiotics but follow-up urine cultures
Low threshold to start antibiotics if any signs of active infection.
asymptomatic bacteruria - no need to treat
DVT prophylaxis:
Lovenox 40 mg SQ daily
CODE STATUS:
DNR and confirmed with family at bedside
Anticipated Discharge: 24 - 48 hours
Subjective/Interval History
-
Date of Service: January 26, 2024
back pain much improved
sitting in chair
Objective Data
-
Vital Signs:
Vital Signs
Temp Pulse Resp BP Pulse Ox
98.0 F 63 18 137/60 95
01/26/24 11:37 01/26/24 11:37 01/26/24 11:37 01/26/24 11:37 01/26/24 11:37
I&O
01/25/24 01/26/24 01/27/24
06:59 06:59 06:59
Intake Total 940 / 940
Balance 940 / 940
Review of Systems
-
History Source: Patient
All other systems: Reviewed and negative
Physical Exam
-
General: No Apparent Distress
HEENT: PERRLA
Respiratory: Clear to Auscultation; Negative Wheezes
Cardiac: S1/S2
GI: Soft and Nontender
Musculoskeletal: No Edema
Skin: Warm and Dry; Negative Rash
Neuro: AO x 3 and Other (needs help with orientation to place; + right upper extremities weakness, + expressive aphasia )
Psych: Calm
Data Reviewed
-
Diagnostic Radiology: Report Reviewed by me
Labs: Labs Reviewed by me
[2024-01-26] MEDS: DICLOFENAC 1% TOPICAL GEL 2 GRAM TOPICAL ×3 (14:09→21:42)
[2024-01-26] MEDS: LOVENOX 40 MG SC (17:35)
[2024-01-26] MEDS: LIPITOR 40 MG PO (19:41)
[2024-01-27] VITALS (8 sets, daily range): BP systolic 113–139; BP diastolic 49–58; PULSE 67; O2SAT 95–97
[2024-01-27] MEDS: TYLENOL 1000 MG PO ×3 (08:15→21:24)
[2024-01-27] MEDS: ASPIR LOW (ENTERIC COATED) 81 MG PO (08:16)
[2024-01-27] MEDS: PLAVIX 75 MG PO (08:16)
[2024-01-27] MEDS: DICLOFENAC 1% TOPICAL GEL 2 GRAM TOPICAL ×4 (08:16→21:24)
[2024-01-27] MEDS: DESENEX/MITRAZOL/ZEASORB 1 APPLIC TOPICAL ×2 (08:20→19:59)
[2024-01-27] MEDS: LIDOCAINE 4% PATCH 1 PATCH TOPICAL (08:59)
--- NOTE | 2024-01-27 11:23 | W.PN.HOSP.TC ---
Addendum entered and electronically signed by Filomena Roque MD 01/27/24 12:49:
further discussed with neurology and radiology - stroke involves anterior and posterior circulation and therefore TTE recommended
-son updated
-will consult cardiology
Original Note:
Today's Communication/Plan
-
dispo planning
Assessment / Plan
Assessment / Plan
IMPRESSION:
Patient 83 years old male with history of hyperlipidemia, TIA/CVA, recent lumbar compresSion fracture presented to the hospital with sudden onset of right-sided weakness and aphasia consistent with acute stroke, likely ischemic in nature. TPA not
given given unclear time of onset.
HEAD CT 01/24/24
IMPRESSION:
No acute intracranial abnormality. Chronic findings, as above.
HEAD/NECK CTA 01/24/24
IMPRESSION:
No CT evidence for high-grade stenosis or occlusion of the arterial vasculature in the head or neck. Calcified atherosclerosis at the bilateral carotid bifurcations contributing to less than 50% stenosis.
MRI BRAIN 01/26/24
IMPRESSION:
There are numerous scattered acute infarct foci predominantly in the left middle cerebral artery distribution, as described. No associated mass effect.
PLAN:
Acute stroke:
-Not a candidate for TNKase due to being out of the time window.
-appreciate neurology
-CT scan of the head no acute intracranial abnormality
-CTA of the head and neck no significant stenosis
-MRI results above
-continue aspirin/plavix x 3 weeks then daily aspirin
-Continue statin
-PT/OT/ST
-Physiatry consult in; team to text Dr. Harley Sunday morning
-*team to text cardiology tomorrow to set up for cardiac cath tech prior to DC. If no arrhythmia found with short term, may need Linq
Prior history of TIA/CVA
Lumbar spine compression fracture
-recently diagnosis
-difficult with mobility
-resume lidocaine patch
-topical diclofenac PRN
-pain improved morning 01/25
-PT/OT
Abnormal urinalysis:
Pyuria 21-25 WBC and moderate urine bacteria
Currently afebrile and no leukocytosis so hold off on antibiotics
Low threshold to start antibiotics if any signs of active infection.
asymptomatic bacteruria - no need to treat
DVT prophylaxis:
Lovenox 40 mg SQ daily
CODE STATUS:
DNR and confirmed with family at bedside
Anticipated Discharge: 24 - 48 hours
Subjective/Interval History
-
Date of Service: January 27, 2024
feeling well
back pain better
moving arm much better
Objective Data
-
Vital Signs:
Vital Signs
Temp Pulse Resp BP Pulse Ox
98.1 F 53 18 123/58 98
01/27/24 07:55 01/27/24 07:55 01/27/24 07:55 01/27/24 07:55 01/27/24 07:55
I&O
01/26/24 01/27/24 01/28/24
06:59 06:59 06:59
Intake Total 940 / 940 780 / 780
Balance 940 / 940 780 / 780
Review of Systems
-
History Source: Patient
All other systems: Reviewed and negative
Physical Exam
-
General: No Apparent Distress
HEENT: PERRLA
Respiratory: Clear to Auscultation; Negative Wheezes
Cardiac: S1/S2
GI: Soft and Nontender
Musculoskeletal: No Edema
Skin: Warm and Dry; Negative Rash
Neuro: AO x 3 and Other (needs help with orientation to place; RUE weakness much improved; can keep RUE and RLE above bed > 5 seconds )
Psych: Calm
Data Reviewed
-
Diagnostic Radiology: Report Reviewed by me
Labs: Labs Reviewed by me
--- NOTE | 2024-01-27 12:40 | CM ---
CM received call from [facility]
Update provided per request
Return SNF referral sent to [facility] per her request in the case family is interested in SNF return
PT/OT following with SNF vs acute recommendations
Meeting with family in hallway to discuss as pt receiving bedside care
They are interested in PMR eval and referral to [facility]
Explained role of [facility] in auth process
PMR consult requested and referral sent to [facility] via [facility]
Discharge Disposition- SNF vs acute
--- NOTE | 2024-01-27 14:27 | CON.CAR ---
Consultation
Consultation Request
Date/Time Consultation Requested: 01/27/2024 1:40 PM
Date/Time Consultation Performed: 01/27/2024 3:15 PM
Requesting Provider: Dr. Roque
Performing Provider: Dr. Lea Hassan
Reason for Consultation: RITA
Medical History
-
Chief Complaint: CVA
History of Present Illness:
He is an 83-year-old man with previous history of right-sided temporoparietal ischemic stroke with cognitive impairment. He also has a history of hypertension/hyperlipidemia. In addition to interstitial lung disease. He presented with acute onset
of right arm weakness and aphasia. He was outside of the window for tenecteplase given symptoms started 01/22 in the evening. It is felt that etiology may be mbolic source. Brain MRI was possibly consistent with atheroembolic source. Patient is
making good recovery overall. He denies chest pain, palpitations, dizziness and syncope. His blood pressure is stable.
Neurology/primary service has requested transesophageal echocardiogram, outpatient monitor and if negative implantable Linq monitor.
Past Medical History
Past Medical History: CVA (Acute CVA 01/2024. Prior history of ischemic stroke with cognitive impairment), HTN, Hypercholesterolemia and Other (Lumbar spine compression fracture)
Social History
Tobacco: Non-Smoker
Alcohol: None
Family History
Family History: Reviewed & Not Pertinent and Unable to Obtain
Allergies / Home Medications
Allergy/AdvReac Type Severity Reaction Status Date / Time
No Known Allergies Allergy Verified 03/09/23 20:07
�Medication �Instructions �Recorded �Confirmed �Type
acetaminophen 500 mg tablet 1,000 mg PO TID@0800,1400,199901/24/24 01/24/24 History
aspirin 81 mg tablet,delayed 81 mg PO DAILY 01/24/24 01/24/24 History
release
atorvastatin 40 mg tablet 40 mg PO DAILY@199901/24/24 01/24/24 History
diclofenac sodium 1 % topical gel 1 g topical BID PRN mild pain 01/24/24 01/24/24 History
Review of Systems
-
History Source: Patient
All other systems: Negative unless noted
Neurological: Weakness
Physical Exam
Vital Signs
Temp Pulse Resp BP Pulse Ox
97.9 F 59 18 121/53 98
01/27/24 11:42 01/27/24 11:42 01/27/24 11:42 01/27/24 11:42 01/27/24 11:42
Lab Results
01/25/24 06:11
01/25/24 06:11
General: Well developed, well nourished in NAD.
Heart: Non displaced PMI, RRR, no murmurs, No S3, S4, no rubs.
Lungs: Clear to auscultation bilaterally, no wheeze, rhonchi, rubs bilaterally,
normal expiratory phase.
Extremities: No clubbing, cyanosis or edema bilaterally.
Neuro: Awake and pleasant. Distractible
Impression / Plan
-
Impression:
Acute stroke with aphasia and right-sided weakness
Previous right-sided temporoparietal ischemic stroke
Interstitial lung disease
Cognitive impairment
Hypertension
Hyperlipidemia
Moderate aortic valve insufficiency
Echocardiogram 01/25/2024 ejection fraction 65 to 70%. Mild LVH. Moderate AI which is eccentric trace TR with PA pressure 25 to 30 mmHg
Brain MRI 01/26/2024 numerous scattered acute infarcts foci predominantly in the left middle cerebral artery distribution. Small region of encephalomalacia in the posterior right temporal consistent with old infarct. There is a small focus of low
intensity susceptibility right parietal lobe consistent with hemosiderin related to old hemorrhagic infarct.
Head and neck CTA 01/24/2024 no evidence of high-grade stenosis or occlusion arterial vasculature. Calcified atherosclerosis at the bilateral carotid artery bifurcations less than 50% stenosis.
Plan:
On presentation he was not a candidate for TNKase due to being out of the time window. CT scan of the head no acute intracranial abnormality CTA of the head and neck no significant stenosis. Brain MRI suggested thromboembolic source.
Neurology plan is to continue aspirin and add Plavix for dual antiplatelet therapy for 3 weeks. Then aspirin only.
Continue statins for hyperlipidemia
Permissive hypertension, blood pressure stable
Transesophageal echocardiogram requested I discussed with the patient and his son Cedrick Kapoor on the phone. They are agreeable to proceed. Risks and benefits discussed. All questions answered. Proceed with transesophageal echocardiogram in the
morning.
14-day outpatient monitor will be ordered at the time of discharge followed by Linq implantable monitor if this is negative.
Data Reviewed
-
EKG: Tracing Personally Visualized and interpreted
Radiology: Report Reviewed by me
CT Scan: Report Reviewed by me
Ultrasound: Report Reviewed by me
MRI: Report Reviewed by me
Medical Tests (Nuc Med, Echo etc): Report Reviewed by me
Labs: Labs Reviewed by me
Old Records: Reviewed
[2024-01-27] MEDS: LOVENOX 40 MG SC (17:58)
[2024-01-27] MEDS: LIPITOR 40 MG PO (20:02)
[2024-01-28] VITALS (11 sets, daily range): BP systolic 122–144; BP diastolic 50–58; PULSE 55; O2SAT 95
[2024-01-28] MEDS: LIDOCAINE 4% PATCH 1 PATCH TOPICAL (07:58)
[2024-01-28] MEDS: PLAVIX 75 MG PO (07:58)
[2024-01-28] MEDS: ASPIR LOW (ENTERIC COATED) 81 MG PO (07:58)
[2024-01-28] MEDS: TYLENOL 1000 MG PO ×3 (07:58→22:28)
[2024-01-28] MEDS: FLUSH (NSS) 1 FLUSH IV (07:59)
[2024-01-28] MEDS: DESENEX/MITRAZOL/ZEASORB 1 APPLIC TOPICAL ×2 (07:59→20:05)
[2024-01-28] MEDS: DICLOFENAC 1% TOPICAL GEL 2 GRAM TOPICAL ×4 (07:59→22:27)
--- NOTE | 2024-01-28 08:12 | PTCARENOTE ---
Addendum entered by Janet Daniel 01/28/24 19:42:
Received report from Jena in porcelain enamel laborer at 1020. Pt arrived back to rm [id number] at 1030, AAOx3, remains with intermittent confusion, SR on telemetry, denying any pain. Will start on diet as per ordered by cardiology.
Original Note:
Provided report to Penelope in operations label clerk. Pt transported at this time to porcelain enamel laborer.
--- NOTE | 2024-01-28 10:45 | W.PN.CARDCBS ---
Addendum entered and electronically signed by Iraj Ca DO 01/28/24 14:40:
I saw and examined the patient.
The Drawing Instructor's note was reviewed and I agree with the note.
Comment:
Plan:
RITA without thrombus. there was possible aortic atheroma and CT chest ordered and pending.
Outpt monitor placed once at [facility]
Outpt follow up to be arranged.
Original Note:
Today's Communication / Plan
-
Check CT angio thoracic aorta to evaluate descending aorta abnormality on RITA
Prefer to apply 14 day Rhythm Star once patient is at [facility] so that monitor can be explained to [facility] staff
Impression / Plan
-
PCP: Dr. Lerma
Cardiology: None prior to admission
Impression:
Acute stroke with aphasia and right-sided weakness
Previous right-sided temporoparietal ischemic stroke
Interstitial lung disease
Cognitive impairment
Hypertension
Hyperlipidemia
Moderate aortic valve insufficiency
Abnormal RITA
Dilated aortic root with minimally dilated ascending aorta and uniform thickening in the media of the descending aorta at 30cm then up through the arch by RITA 01/28/24
Brain MRI 01/26/2024 numerous scattered acute infarcts foci predominantly in the left middle cerebral artery distribution. Small region of encephalomalacia in the posterior right temporal consistent with old infarct. There is a small focus of low
intensity susceptibility right parietal lobe consistent with hemosiderin related to old hemorrhagic infarct.
Head and neck CTA 01/24/2024 no evidence of high-grade stenosis or occlusion arterial vasculature. Calcified atherosclerosis at the bilateral carotid artery bifurcations less than 50% stenosis.
Echo 01/25/24: ejection fraction 65 to 70%. Mild LVH. Moderate AI which is eccentric trace TR with PA pressure 25 to 30 mmHg
RITA 01/28/24: Normal BiV size and function without wall motion abnormality, moderate aortic regurgitation, dilated aortic root at 4.4 cm, minimally dilated ascending aorta at 3.9 cm, uniform thickening and what appears to be the media of the
descending aorta beginning around 30 cm up through the arch, no obvious evidence of ulceration or penetration, no evidence of thrombus or spontaneous echo contrast in the LA or COLTON
Plan:
-Patient had RITA 01/28/24 that did not show evidence of thrombus in the LA or COLTON. There was an abnormality with uniform thickening that appeared to be in the media and stretched from the descending aorta at about 30 cm up to the arch. CT angio
thoracic aorta with attention to the descending aorta ordered.
-Outpatient dose of aspirin 81 mg daily continued and Plavix 75 mg daily added.
-Outpatient dose of atorvastatin 40 mg daily continued
-Normotensive. Patient was not taking BP meds prior to admission.
-14 day Rhythm Star monitor to be applied at discharge. Patient might be going to [facility]. If patient is going to go to [facility] then monitor should be applied once patient is at [facility] so that [facility] monitor java j2ee application developer can explain process to [facility]
staff.
HPI: He is an 83-year-old man with previous history of right-sided temporoparietal ischemic stroke with cognitive impairment. He also has a history of hypertension/hyperlipidemia. In addition to interstitial lung disease. He presented with acute
onset of right arm weakness and aphasia. He was outside of the window for tenecteplase given symptoms started 612 in the evening. It is felt that etiology may be mbolic source. Brain MRI was possibly consistent with atheroembolic source. Patient
is making good recovery overall. He denies chest pain, palpitations, dizziness and syncope. His blood pressure is stable.
Progress Note - Machine Shop Inspector
Subjective
Date of Service: January 28, 2024
No chest pain
Objective
Labs:
01/25/24 06:11
01/25/24 06:11
Labs
Hgb 12.8 g/dL (13.0-18.0) L 01/25/24 06:11
Hct 37.2 % (39.0-52.0) L 01/25/24 06:11
Plt Count 139 10^3/uL (130-400) 01/25/24 06:11
Sodium 139 mmol/L (135-145) 01/25/24 06:11
Potassium 4.2 mmol/L (3.5-5.1) 01/25/24 06:11
BUN 16 mg/dl (9-20) 01/25/24 06:11
Creatinine 0.8 mg/dL (0.7-1.3) 01/25/24 06:11
Glucose 84 mg/dl (70-99) 01/25/24 06:11
Vital Signs and I&O:
Vital Signs
Temp Pulse Resp BP Pulse Ox
97.9 F 50 18 134/54 97
01/28/24 07:58 01/28/24 07:58 01/28/24 07:58 01/28/24 07:58 01/28/24 07:58
Vital Signs
Temp Pulse Resp BP Pulse Ox
97.9 F 50 18 134/54 97
01/28/24 07:58 01/28/24 07:58 01/28/24 07:58 01/28/24 07:58 01/28/24 07:58
Intake & Output
01/26/24 01/27/24 01/28/24 01/29/24
06:59 06:59 06:59 06:59
Intake Total 940 / 940 780 / 780 660 / 660
Balance 940 / 940 780 / 780 660 / 660
Physical Exam
Physical Exam
GEN: AAO to person, place and situation
HEENT: EOMI
LUNGS: No audible
CV: SR on tele
ABD: ND
EXT: No edema
NEURO: Gross non-focal
SKIN: No rash
--- NOTE | 2024-01-28 11:43 | W.PN.HOSP.TC ---
Today's Communication/Plan
-
Monitor vital signs see plan
PT/OT
CTA
Continue Plavix and ASA
physiatry eval
Assessment / Plan
Assessment / Plan
IMPRESSION:
Patient 83 years old male with history of hyperlipidemia, TIA/CVA, recent lumbar compresSion fracture presented to the hospital with sudden onset of right-sided weakness and aphasia consistent with acute stroke, likely ischemic in nature. TPA not
given given unclear time of onset.
HEAD CT 01/24/24
IMPRESSION:
No acute intracranial abnormality. Chronic findings, as above.
HEAD/NECK CTA 01/24/24
IMPRESSION:
No CT evidence for high-grade stenosis or occlusion of the arterial vasculature in the head or neck. Calcified atherosclerosis at the bilateral carotid bifurcations contributing to less than 50% stenosis.
MRI BRAIN 01/26/24
IMPRESSION:
There are numerous scattered acute infarct foci predominantly in the left middle cerebral artery distribution, as described. No associated mass effect.
PLAN:
Acute stroke:
-Not a candidate for TNKase due to being out of the time window.
-appreciate neurology
-CT scan of the head no acute intracranial abnormality
-CTA of the head and neck no significant stenosis
-MRI results above
-continue aspirin/plavix x 3 weeks then daily aspirin
-Continue statin
-PT/OT/ST
-consulted physiatry
s/p RITA 01/27 with moderate AR, dilated aortic root, uniform thickening and what appears to be the medial of the descending aorta. CTA ordered. No evidence of thrombus in the left atrium or left atrial appendage
Prior history of TIA/CVA
Lumbar spine compression fracture
-recently diagnosis
-difficult with mobility
-resume lidocaine patch
-topical diclofenac PRN
-pain improving
-PT/OT
Abnormal urinalysis:
Pyuria 21-25 WBC and moderate urine bacteria
Currently afebrile and no leukocytosis so hold off on antibiotics
Low threshold to start antibiotics if any signs of active infection.
asymptomatic bacteruria - no need to treat
DVT prophylaxis:
Lovenox 40 mg SQ daily
CODE STATUS:
DNR and confirmed with family at bedside
General: No Apparent Distress
HEENT: PERRLA
Respiratory: Clear to Auscultation; Negative Wheezes
Cardiac: S1/S2
GI: Soft and Nontender
Musculoskeletal: No Edema
Skin: Warm and Dry; Negative Rash
Neuro: AO x 3
Psych: Calm
Anticipated Discharge: Within 24 hours
Subjective/Interval History
-
Date of Service: January 28, 2024
denies chest pain
Objective Data
-
Vital Signs:
Vital Signs
Temp Pulse Resp BP Pulse Ox
97.7 F 54 18 132/54 97
01/28/24 10:45 01/28/24 10:45 01/28/24 10:45 01/28/24 10:45 01/28/24 10:45
I&O
01/27/24 01/28/24 01/29/24
06:59 06:59 06:59
Intake Total 780 / 780 660 / 660
Balance 780 / 780 660 / 660
--- NOTE | 2024-01-28 12:11 | CM ---
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
Spoke with Sai at [facility] . Pt is appropriate for [facility].
Will need auth with [facility] [phone] day of dc.
Son is supportive POA
[facility]
report [phone]
fax [phone]
PLAN To [facility] after medically ready and auth obtained
--- NOTE | 2024-01-28 16:14 | W.PN.NEURO.1 ---
Today's Communication / Plan
-
DAPT therapy aspirin/clopidogrel for 21 days, after 21 days stop aspirin and continue on Clopidogrel
Not recommending CT imaging of aorta
Continue Atorvastatin
Neurologic checks and NIH scales
Reasonable to pursue 14 day outpatient adjunct history instructor, if negative would pursue LINQ
Neuro Assessment/Plan
Assessment
The patient is a 83-year-old man with a past history of previous right sided temporoparietal ischemic stroke, interstitial lung disease cognitive impairment, hypertension presenting to the hospital with onset of right arm weakness and aphasia. His
last known normal seemed to be the evening of 01/22, brought into the ED with unclear onset of symptoms but clearly seem to have speech difficulty and right arm weakness. He was brought into the ER and was outside the window for tenecteplase and had
no large vessel occlusion on CTA of the head and neck.
Patient's family reports consistence with aspirin 81 mg daily since her previous ischemic stroke. This stroke was about 8 years ago and was treated at [place]. Etiology unknown per his DIL.
His aphasia and right sided weakness have significantly improved compared to yesterday.
CTA of the head and neck with no identifiable large vessel occlusion intracranially no significant carotid stenosis
MRI brain with left MCA territory infarcts, embolic appearing
RITA shows some thickening of the aorta but no obvious ulceration or plaque. No thrombus seen on the RITA.
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 Risk factors are hypertension, hyperlipidemia, age, and previous ischemic stroke. Considerations are atheroembolic source but also need to keep in mind cardioembolic source possibly occult atrial
fibrillation.
Subjective/Objective
Subjective Data
Date of Service: January 28, 2024
Had RITA, otherwise doing okay, no new complaints, denies headache
Objective Data
Vital Signs
Temp Pulse Resp BP Pulse Ox
97.5 F 55 18 144/57 95
01/28/24 15:55 01/28/24 15:55 01/28/24 15:55 01/28/24 15:55 01/28/24 15:55
Lab Results
01/25/24 06:11
01/25/24 06:11
Sodium 139 mmol/L (135-145) 01/25/24 06:11
Potassium 4.2 mmol/L (3.5-5.1) 01/25/24 06:11
BUN 16 mg/dl (9-20) 01/25/24 06:11
Glucose 84 mg/dl (70-99) 01/25/24 06:11
Calcium 9.2 mg/dl (8.4-10.2) 01/25/24 06:11
LDL Cholesterol, Calc 62 mg/dl 01/25/24 06:11
Patient Allergies
No Known Allergies Allergy (Verified 03/09/23 20:07)
Review of Systems
-
Unable to obtain full review of systems at this time due to: Aphasia
Physical Exam
-
General: No Apparent Distress
Eyes: No Ptosis
HEENT: Normocephalic
Neck: No Bruits Bilaterally
Respiratory: Clear to Auscultation
Cardiac: Regular Rhythm
GI: Normal Bowel Sounds
Skin: Unremarkable
Extremities: No Clubbing
Psych: Unremarkable
Extended Neurological Exam
Mood & Affect: Mood Unremarkable and Affect Unremarkable
Attention Span & Concentration: Awake, Alert and Interactive
Memory: Unremarkable
Tremor: Hand Tremor Absent
Involuntary Movement: None
Speech: Negative Expressive Aphasia or Receptive Aphasia
Cranial Nerve II: Left Eye: Pupillary Reactivity Unremarkable, Pupillary Size Unremarkable and Visual Lewis Intact
Cranial Nerve II: Right Eye: Pupillary Reactivity Unremarkable, Pupillary Size Unremarkable and Visual Lewis Intact
Cranial Nerves III, IV, : Extraocular Movement: Extraocular Movement Full in all Directions
Cranial Nerve VII: Facial Symmetry: Normal Facial Symmetry
Muscle Strength, Overall: Other (Right arm drift and 4/5 weakness)
Pronator Drift: Drift in Right Upper Extremity
Deep Tendon Reflexes: Trace Throughout
Data Reviewed
-
CT-A: Report Reviewed and Image Reviewed
CT Head: Report Reviewed and Image Reviewed
MRI Head: Report Reviewed and Image Reviewed
Echocardiogram: Report Reviewed
[2024-01-28] MEDS: LOVENOX 40 MG SC (17:31)
[2024-01-28] MEDS: LIPITOR 40 MG PO (20:05)
[2024-01-29] VITALS (8 sets, daily range): BP systolic 113–137; BP diastolic 39–55; PULSE 60–61; O2SAT 99
--- NOTE | 2024-01-29 09:10 | W.PN.CARDCBS ---
Addendum entered and electronically signed by Garrett Sumner MD 01/29/24 13:09:
hold off on toprol with bradycardia
Addendum entered and electronically signed by Garrett Sumner MD 01/29/24 12:38:
I saw and examined the patient.
The ADVANCED PRACTICE PROFESSIONAL or PA's note was reviewed and I agree with the note.
Comment: General: Well developed, well nourished in NAD.
Neck: Supple, no JVD, HJR, carotids +2 B/L, no bruits bilaterally.
Heart: Non displaced PMI, RRR, no murmurs, No S3, S4, no rubs.
Lungs: Clear to auscultation bilaterally, no wheeze, rhonchi, rubs bilaterally,
normal expiratory phase.
Extremities: No clubbing, cyanosis or edema bilaterally.
Neuro: Grossly nonfocal, awake, alert and oriented x3.
Stable cardiology status for discharge. Will add low-dose Toprol XL with aneurysm. Continue aspirin and Plavix per neurology. Continue statin therapy. Will do 14-day outpatient monitor upon discharge to [place]. Will arrange follow-up visit.
Addendum entered and electronically signed by Cindy Massey PA-C 01/29/24 12:13:
Neurology recommending 90 days of DAPT with aspirin and Plavix and then Plavix after
Addendum entered and electronically signed by Cindy Massey PA-C 01/29/24 09:51:
CT chest angio reviewed with Neurology and Dr. Ruiz. Neurology now recommending 90 months of DAPT then Plavix after.
Original Note:
Today's Communication / Plan
-
Dual antiplatelet therapy x 21 days and Plavix indefinitely
Continue statin
Will need 14-day outpatient rhythm star monitor upon discharge
Consider vascular surgery evaluation given findings of CT chest angio
Impression / Plan
-
PCP: Dr. Lerma
Cardiology: None prior to admission, initial consult Lea Hassan
Impression:
Presented 01/24/2024 with right arm weakness and aphasia
Acute stroke involving left middle cerebral artery distribution on MRI
Previous right-sided temporoparietal ischemic stroke
Interstitial lung disease
Cognitive impairment
Hypertension
Hyperlipidemia
Moderate aortic valve insufficiency
Abnormal RITA
Dilated aortic root with minimally dilated ascending aorta and uniform thickening in the media of the descending aorta at 30cm then up through the arch by RITA 01/28/[address] angio chest 01/28/2024: fusiform but slightly eccentric aneurysmal dilatation of the upper aspect of the descending thoracic aorta which measures 5 cm in maximal diameter with predominantly noncalcified atherosclerotic plaque versus thrombus along
its posterior and left lateral margin. Fusiform aneurysmal dilatation of the abdominal aorta at the level of the SMA origin to approximately 4.5 cm in diameter thrombus versus noncalcified atherosclerotic plaque at its posterior and right lateral
margin. Minimal fusiform aneurysmal dilatation of the ascending thoracic aorta which measures 4 cm in diameter
Brain MRI 01/26/2024 numerous scattered acute infarcts foci predominantly in the left middle cerebral artery distribution. Small region of encephalomalacia in the posterior right temporal consistent with old infarct. There is a small focus of low
intensity susceptibility right parietal lobe consistent with hemosiderin related to old hemorrhagic infarct.
Head and neck CTA 01/24/2024 no evidence of high-grade stenosis or occlusion arterial vasculature. Calcified atherosclerosis at the bilateral carotid artery bifurcations less than 50% stenosis.
Echo 01/25/24: ejection fraction 65 to 70%. Mild LVH. Moderate AI which is eccentric trace TR with PA pressure 25 to 30 mmHg
RITA 01/28/24: Normal BiV size and function without wall motion abnormality, moderate aortic regurgitation, dilated aortic root at 4.4 cm, minimally dilated ascending aorta at 3.9 cm, uniform thickening and what appears to be the media of the
descending aorta beginning around 30 cm up through the arch, no obvious evidence of ulceration or penetration, no evidence of thrombus or spontaneous echo contrast in the LA or COLTON
Plan:
-Presented 01/24/2024 with right arm weakness and aphasia and found to have new acute stroke with aphasia and right-sided weakness consistent with left middle cerebral artery distribution
-Discussed with neurology plan is for dual antiplatelet therapy with aspirin and Plavix x 21 days then Plavix indefinitely.
-Continue atorvastatin 40 mg, lipid 01/25/2024 TC 115, HDL 30, LDL 62, triglycerides 115
-Patient had RITA 01/28/24 that did not show evidence of thrombus in the LA or COLTON. There was an abnormality with uniform thickening that appeared to be in the media and stretched from the descending aorta at about 30 cm up to the arch.
-CT angio chest 01/28/2024 demonstrates aneurysmal dilation of descending thoracic aorta measuring 5 cm in max diameter predominantly noncalcified atherosclerotic plaque versus thrombus. Fusiform aneurysmal dilation abdominal aorta approximately 4.5
cm thrombus versus noncalcified atherosclerotic plaque noted. Ascending thoracic aorta 4 cm. Consider vascular consult. Continue blood pressure control.
-Normotensive. Patient was not taking BP meds prior to admission.
-Review of telemetry shows no arrhythmias thus far.
-14 day Rhythm Star monitor to be applied at discharge. Patient might be going to [facility]. If patient is going to go to [facility] then monitor should be applied once patient is at [facility] so that [facility] monitor java web application developer can explain process to [facility]
staff.
Discussed findings with patient, patient's nurse Karlene and Dr. Nicole
HPI: He is an 83-year-old man with previous history of right-sided temporoparietal ischemic stroke with cognitive impairment. He also has a history of hypertension/hyperlipidemia. In addition to interstitial lung disease. He presented with acute
onset of right arm weakness and aphasia. He was outside of the window for tenecteplase given symptoms started 01/22 in the evening. It is felt that etiology may be mbolic source. Brain MRI was possibly consistent with atheroembolic source. Patient
is making good recovery overall. He denies chest pain, palpitations, dizziness and syncope. His blood pressure is stable.
Progress Note - Scallop Raker
Subjective
Date of Service: January 29, 2024
Patient seen and examined. Patient resting comfortably in bed. Patient reports still some mild right-sided weakness but overall has improved. Feels speech is close to baseline although at times has word finding difficulties. Denies chest pain,
palpitations dizziness or lightheadedness
Objective
Labs:
01/25/24 06:11
01/25/24 06:11
Labs
Hgb 12.8 g/dL (13.0-18.0) L 01/25/24 06:11
Hct 37.2 % (39.0-52.0) L 01/25/24 06:11
Plt Count 139 10^3/uL (130-400) 01/25/24 06:11
Sodium 139 mmol/L (135-145) 01/25/24 06:11
Potassium 4.2 mmol/L (3.5-5.1) 01/25/24 06:11
BUN 16 mg/dl (9-20) 01/25/24 06:11
Creatinine 0.8 mg/dL (0.7-1.3) 01/25/24 06:11
Glucose 84 mg/dl (70-99) 01/25/24 06:11
Vital Signs and I&O:
Vital Signs
Temp Pulse Resp BP Pulse Ox
97.7 F 55 20 123/39 94
01/29/24 07:10 01/29/24 07:10 01/29/24 07:10 01/29/24 07:10 01/29/24 07:10
Vital Signs
Temp Pulse Resp BP Pulse Ox
97.7 F 55 20 123/39 94
01/29/24 07:10 01/29/24 07:10 01/29/24 07:10 01/29/24 07:10 01/29/24 07:10
Intake & Output
01/27/24 01/28/24 01/29/24 01/30/24
06:59 06:59 06:59 06:59
Intake Total 780 / 780 660 / 660 540 / 540
Balance 780 / 780 660 / 660 540 / 540
Physical Exam
Physical Exam
GEN: No distress, awake, Ox3, lying in bed
HEENT: supple, anicteric, mmm
LUNGS: CTA bilaterally, no wheezes/rales
CV: Reg, S1/S2, no murmur, rub or gallop
ABD: soft, BS+, NT/ND
EXT: No edema, clubbing or cyanosis
NEURO: Gross non-focal
SKIN: No rash, warm, dry, pink
[2024-01-29] MEDS: PLAVIX 75 MG PO (09:13)
[2024-01-29] MEDS: TYLENOL 1000 MG PO ×3 (09:13→21:15)
[2024-01-29] MEDS: ASPIR LOW (ENTERIC COATED) 81 MG PO (09:13)
[2024-01-29] MEDS: LIDOCAINE 4% PATCH 1 PATCH TOPICAL (09:13)
[2024-01-29] MEDS: DICLOFENAC 1% TOPICAL GEL 2 GRAM TOPICAL ×3 (09:14→21:15)
[2024-01-29] MEDS: DESENEX/MITRAZOL/ZEASORB 1 APPLIC TOPICAL ×2 (09:25→19:53)
--- NOTE | 2024-01-29 09:33 | CON.VAS ---
Addendum entered and electronically signed by Hung Rivera III, MD 01/29/24 11:18:
This patient was seen and examined with HUNG Downs and Neda. I agree with the history and physical exam as well as the assessment and plan. I have the following additions:
83-year-old frail male
Currently admitted for stroke
Additional history obtained from son Cedrick via telephone
History of open AAA repair at [facility] approximately [address] angiogram of the chest performed as part of his workup here
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
On exam he is nontoxic-appearing and in no distress
Oriented to self and place but not time
Abdomen with well-healed midline abdominal incision, soft, nontender, nondistended
Extremities are warm and well-perfused
I personally reviewed the CT angiogram images. He has an aneurysm of the descending thoracic aorta that my direct measurement is approximately 49 mm. 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
mesenteric artery that is incompletely evaluated on the chest CT. This measures 5 cm in max dimension by my direct measurement. 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
My recommendation is for interval surveillance.
I will plan to see him back in the office in [address] angiogram of the chest, abdomen and pelvis.
Aggressive blood pressure management
Antiplatelet therapy
Call with questions or concerns
Signed:
Hung Rivera III, MD
[facility]
[phone] (mdzh)
Original Note:
Consultation
Consultation Request
Date/Time Consultation Performed: 01/29/2024 1030
Requesting Provider: Hospitalist
Performing Provider: Neda Ferrell NP-C for Hung Rivera III, MD
Reason for Consultation: Thoracic aorta aneurysmal dilatation
Medical History
-
Chief Complaint: Right-sided weakness and aphasia
History of Present Illness:
This is an 83-year-old male with significant past medical history for right temporoparietal ischemic stroke, cognitive impairment, hypertension, hyperlipidemia, pulmonary nodules, interstitial lung disease, and ambulatory dysfunction who presented
to [facility] on 01/24/2024 from [facility] with reports of right-sided weakness and aphasia. Patient underwent MRI on 01/26/2024 which confirmed numerous scattered acute infarct throughout left middle cerebral artery distribution. CT
chest angio was obtained on 01/28/2024 with incidental finding of descending thoracic aneurysmal dilatation, prompting vascular consult. Patient is awake alert and oriented x 2 (to self and place), but cannot recall year or president nor recent
events that led to admission. Review of medical history demonstrates abdominal aortic aneurysm repair, however patient cannot recall any details of past medical or surgical history. Upon physical exam there is evidence of a midline abdominal scar
but patient cannot recall any abdominal surgery or where it was performed. He currently is without complaints, and is resting comfortably in bed.
Past Medical History
Past Medical History: CVA ( Right temporoparietal ischemic stroke), HTN and Other (cognitive impairment, HLD, pulmonary nodules, interstitial lung disease, ambulatory dysfunction, frequent falls)
Past Surgical History: Other (AAA repair, knee replacement)
Social History
Tobacco: Former Smoker
Alcohol: None
Drug: None
Living: Other (Recently resided at [facility] but prior lived independently in an apartment)
Allergies / Home Medications
Allergy/AdvReac Type Severity Reaction Status Date / Time
No Known Allergies Allergy Verified 03/09/23 20:07
�Medication �Instructions �Recorded �Confirmed �Type
acetaminophen 500 mg tablet 1,000 mg PO TID@0800,1400,199901/24/24 01/24/24 History
aspirin 81 mg tablet,delayed 81 mg PO DAILY 01/24/24 01/24/24 History
release
atorvastatin 40 mg tablet 40 mg PO DAILY@199901/24/24 01/24/24 History
diclofenac sodium 1 % topical gel 1 g topical BID PRN mild pain 01/24/24 01/24/24 History
Review of Systems
-
Unable to obtain full review of systems at this time due to: Dementia
History Source: Patient
Physical Exam
Vital Signs
Temp Pulse Resp BP Pulse Ox
97.7 F 55 20 123/39 94
01/29/24 07:10 01/29/24 07:10 01/29/24 07:10 01/29/24 07:10 01/29/24 07:10
Lab Results
01/25/24 06:11
01/25/24 06:11
Physical Exam
General: No Apparent Distress and Comfortable
HEENT: Normocephalic, Anicteric and Atraumatic
Cardiac: Negative JVD
GI: Soft, Non Tender, Non Distended and Other (Midline abdominal scar)
Musculoskeletal: No Edema
Skin: Warm and Dry
Neuro: Other (Right arm weakness appreciated)
Pulses: Bilateral Dorsalis Pedis: +2
Assessment / Plan
-
Assessment: 83-year-old male admitted for ischemic stroke, with CTA of chest demonstrating eccentric aneurysmal dilatation of the upper aspect of the descending thoracic aorta which measures 5 cm and fusiform aneurysmal dilatation of the abdominal
aorta at the level of the SMA origin to approximately 4.5 cm
Plan:
Patient with memory impairment and unable to provide past medical or surgical history, surgical evidence of possible abdominal aortic aneurysm repair, with chart review supporting. We will call family to provide better insight into past medical
history
Vascular surgical recommendations per attending
I performed this shared service with the attending. I evaluated the patient [id number] and have entered clinical documentation as shown in the encounter note. I performed the following component(s): history and physical exam. Note that medical
decision making is not final until attested by vascular attending.
--- NOTE | 2024-01-29 11:03 | W.PN.NEURO.1 ---
Today's Communication / Plan
-
-Would pursue DAPT therapy 3 months then Clopidogrel afterwards. Would not pursue anticoagulation
-Pursue 14 day shelter monitor as outpatient and if negative would pursue LINQ
-High dose statin pursue LDL goal less than 70
-Speech therapy, happy to see some improving aphasia
-Neurology follow up outpatient for stroke
Will sign off call with questions and concerns
Neuro Assessment/Plan
Assessment
The patient is a 83-year-old man with a past history of previous right sided temporoparietal ischemic stroke, interstitial lung disease cognitive impairment, hypertension presenting to the hospital with onset of right arm weakness and aphasia. His
last known normal seemed to be the evening of 01/22, brought into the ED with unclear onset of symptoms but clearly seem to have speech difficulty and right arm weakness. He was brought into the ER and was outside the window for tenecteplase and had
no large vessel occlusion on CTA of the head and neck.
Patient's family reports consistence with aspirin 81 mg daily since her previous ischemic stroke. This stroke was about 8 years ago and was treated at [place]. Etiology unknown per his DIL.
His aphasia and right sided weakness have significantly improved compared to yesterday.
CTA of the head and neck with no identifiable large vessel occlusion intracranially no significant carotid stenosis
MRI brain with left MCA territory infarcts, embolic appearing
RITA shows some thickening of the aorta but no obvious ulceration or plaque. No thrombus seen on the RITA.
CTA chest: I don't think the plaque seen on descending aorta is likely to be source of stroke given this would require retrograde blood flow from descending aorta to the brain which is very unlikely. More likely the aortic plaque is a marker of
systemic atherosclerosis.
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 Risk factors are hypertension, hyperlipidemia, age, and previous ischemic stroke. Considerations are atheroembolic source but also need to keep in mind cardioembolic source possibly occult atrial
fibrillation.
Subjective/Objective
Subjective Data
Date of Service: January 29, 2024
No acute events, feels like speech is much improved
Objective Data
Vital Signs
Temp Pulse Resp BP Pulse Ox
97.7 F 55 20 123/39 94
01/29/24 07:10 01/29/24 07:10 01/29/24 07:10 01/29/24 07:10 01/29/24 07:10
Lab Results
01/25/24 06:11
01/25/24 06:11
Sodium 139 mmol/L (135-145) 01/25/24 06:11
Potassium 4.2 mmol/L (3.5-5.1) 01/25/24 06:11
BUN 16 mg/dl (9-20) 01/25/24 06:11
Glucose 84 mg/dl (70-99) 01/25/24 06:11
Calcium 9.2 mg/dl (8.4-10.2) 01/25/24 06:11
LDL Cholesterol, Calc 62 mg/dl 01/25/24 06:11
Patient Allergies
No Known Allergies Allergy (Verified 03/09/23 20:07)
Review of Systems
-
History Source: Patient
All other systems: Reviewed and negative
Constitutional: No Symptoms
EENT: No Symptoms Reported
Respiratory: No Symptoms
Cardiac: No Symptoms
Abdomen/GI: No Symptoms
Genitourinary: No Symptoms
Musculoskeletal: No Symptoms
Skin: No Symptoms
Neuro: Weakness and Speech Problem
Endocrine: No Symptoms
Hematologic / Lymphatic: No Symptoms
Allergy / Immunology: No Symptoms
Physical Exam
-
General: Well Nourished
Eyes: No Ptosis
HEENT: Normocephalic
Neck: No Bruits Bilaterally
Respiratory: Clear to Auscultation
Cardiac: Regular Rhythm
GI: Normal Bowel Sounds
Skin: Unremarkable
Extremities: No Clubbing
Psych: Negative Confused
Extended Neurological Exam
Mood & Affect: Mood Unremarkable and Affect Unremarkable
Attention Span & Concentration: Awake, Alert and Interactive
Memory: Able to Recall
Tremor: Hand Tremor Absent
Speech: Expressive Aphasia (Improved mostly expressive aphasia, comprehension is good) and Dysarthric; Negative Receptive Aphasia
Cranial Nerve II: Left Eye: Pupillary Reactivity Unremarkable, Pupillary Size Unremarkable and Visual Lewis Intact
Cranial Nerve II: Right Eye: Pupillary Reactivity Unremarkable, Pupillary Size Unremarkable and Visual Lewis Intact
Cranial Nerves III, IV, : Extraocular Movement: Extraocular Movement Full in all Directions
Muscle Strength, Overall: Other (Right arm drift, 4/5 shoulder abduction)
--- NOTE | 2024-01-29 11:56 | W.PN.HOSP.TC ---
Today's Communication/Plan
-
Monitor vital signs and see plan
neurology recommending dual antiplatelet therapy for at least 3 months
Patient follow-up with vascular surgery and neurology outpatient
dc planning
Called son, left voicemail
Assessment / Plan
Assessment / Plan
IMPRESSION:
Patient 83 years old male with history of hyperlipidemia, TIA/CVA, recent lumbar compresSion fracture presented to the hospital with sudden onset of right-sided weakness and aphasia consistent with acute stroke, likely ischemic in nature. TPA not
given given unclear time of onset.
HEAD CT 01/24/24
IMPRESSION:
No acute intracranial abnormality. Chronic findings, as above.
HEAD/NECK CTA 01/24/24
IMPRESSION:
No CT evidence for high-grade stenosis or occlusion of the arterial vasculature in the head or neck. Calcified atherosclerosis at the bilateral carotid bifurcations contributing to less than 50% stenosis.
MRI BRAIN 01/26/24
IMPRESSION:
There are numerous scattered acute infarct foci predominantly in the left middle cerebral artery distribution, as described. No associated mass effect.
PLAN:
Acute stroke:
-Not a candidate for TNKase due to being out of the time window.
-appreciate neurology
-CT scan of the head no acute intracranial abnormality
-CTA of the head and neck no significant stenosis
-MRI results above
-continue aspirin/plavix; now for 3 months per neurology recs
echo 01/28 with some thickening in the descending aorta. 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 Patient was seen by vascular surgery who recommends patient follow-up with them outpatient and to continue
antiplatelet therapy and aggressive blood pressure management. Neurology also do not recommend anticoagulation at this time and wants patient to be on at least 3 months of dual antiplatelet therapy.
No thrombus seen on echo. Plan for cardiac monitoring when at [place]
-Continue statin
-PT/OT/ST
-consulted physiatry
s/p RITA 01/27 with moderate AR, dilated aortic root, uniform thickening and what appears to be the medial of the descending aorta. No evidence of thrombus in the left atrium or left atrial appendage
Prior history of TIA/CVA
Lumbar spine compression fracture
-recently diagnosis
-difficult with mobility
-resume lidocaine patch
-topical diclofenac PRN
-pain improving
-PT/OT
Abnormal urinalysis:
Pyuria 21-25 WBC and moderate urine bacteria
Currently afebrile and no leukocytosis so hold off on antibiotics
Low threshold to start antibiotics if any signs of active infection.
asymptomatic bacteruria - no need to treat
DVT prophylaxis:
Lovenox 40 mg SQ daily
CODE STATUS:
DNR and confirmed with family at bedside
General: No Apparent Distress
HEENT: PERRLA
Respiratory: Clear to Auscultation; Negative Wheezes
Cardiac: S1/S2
GI: Soft and Nontender
Musculoskeletal: No Edema
Skin: Warm and Dry; Negative Rash
Neuro: AO x 3
Psych: Calm
Anticipated Discharge: Today
Subjective/Interval History
-
Date of Service: January 29, 2024
denies pain
Objective Data
-
Vital Signs:
Vital Signs
Temp Pulse Resp BP Pulse Ox
97.9 F 60 18 127/55 96
01/29/24 11:20 01/29/24 11:20 01/29/24 11:20 01/29/24 11:20 01/29/24 11:20
I&O
01/28/24 01/29/24 01/30/24
06:59 06:59 06:59
Intake Total 660 / 660 540 / 540
Balance 660 / 660 540 / 540
--- NOTE | 2024-01-29 13:02 | PTCARENOTE ---
Spoke to Cardiology Pa regarding clarification on starting patient on Toprol. Pt has been SB on tele. Toprol held an then Pa discontinued. Cont to assess patient status.
[2024-01-29] MEDS: DICLOFENAC 1% TOPICAL GEL TOPICAL (13:15)
--- NOTE | 2024-01-29 14:17 | CM ---
Spoke with Sai at [facility] .
Pt accepted tomorrow after auth.
Spoke with son Cash who agrees with plan for dc to [facility].
Spoke with Olinda at [facility] . She said Miriam at [facility] will establish auth . Clinical faxed to [phone].
[facility]
report [phone]
fax [phone]
PLAN To [facility] after auth
--- NOTE | 2024-01-29 15:35 | CON.MR ---
Consultation
Consultation Request
Date/Time Consultation Performed: 01/29/2024 1500
Performing Provider: Dr. Pan
Reason for Consultation: CVA
Medical History
-
Chief Complaint: CVA, Weakness
History of Present Illness:
I had the opportunity to see Bryant Kapoor in rehabilitation consultation today. This is an 83-year-old gentleman with a past history of previous right sided temporoparietal ischemic stroke, interstitial lung disease, cognitive impairment, hypertension
admitted to [place] with right arm weakness and aphasia. Initial CT head and CTA of the head and neck with no identifiable large vessel occlusion intracranially no significant carotid stenosis. MRI brain with left MCA territory infarcts,
embolic appearing. RITA shows some thickening of the aorta but no obvious ulceration or plaque. No thrombus seen on the RITA. CT angiogram of the chest performed as part of his workup here found to have aneurysm of the descending thoracic aorta as
well as the visceral segment of the abdominal aorta (incompletely evaluated). Vascular surgery consulted and noted the aneurysm of the descending thoracic aorta that on direct measurement is approximately 49 mm. He has an aneurysm of the visceral
segment of the abdominal aorta at the level of the superior mesenteric artery that is incompletely evaluated on the chest CT. This measures 5 cm in max dimension by direct measurement. 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 And vascular
recommended interval monitoring for now.
Hospital course also noted with Lumbar spine compression fracture of unsure timing, but recent diagnosis. No radiating symptoms. Also noted with abnormal urinalysis, pyuria 21-25 WBC and moderate urine bacteria but has been afebrile and no
leukocytosis so holding off on antibiotics.
Patient seen by me at bedside this afternoon. Lying in bed. States some intermittent back pain, but denies any radiation into the lower limbs. No numbness or tingling or other LE symptoms. Denies any headache or dizziness or lightheadedness. Feels
tired today. No vision changes. No other complaints.
States he lives alone in an apartment, but no steps to enter and denies any previous use of cane or assistive device.
Past Medical History
Past Medical History: Other (Hyperlipidemia, CVA/TIA, aortic aneurysm, interstitial lung disease. 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
Social History
Functional Level Premorbidity:
Independent for all activities.
Current Funct Level: Ambulation, Transfer, UE/LE Dressing:
Min A bed mobility, Mod A transfers, min-Mod A 30' ambulation with walker
Living: Alone
Number of Floors: 1
Allergies / Home Medications
Allergy/AdvReac Type Severity Reaction Status Date / Time
No Known Allergies Allergy Verified 03/09/23 20:07
�Medication �Instructions �Recorded �Confirmed �Last Taken �Type
acetaminophen 500 mg tablet 1,000 mg PO TID@0800,1400,199901/24/24 01/24/24 Unknown History
aspirin 81 mg tablet,delayed 81 mg PO DAILY 01/24/24 01/24/24 Unknown History
release
atorvastatin 40 mg tablet 40 mg PO DAILY@199901/24/24 01/24/24 Unknown History
diclofenac sodium 1 % topical gel 1 g topical BID PRN mild pain 01/24/24 01/24/24 Unknown History
Review Of Systems
-
History Source: Patient
All other systems: Negative unless noted
Constitutional: Reports Fatigue
Eye: Reports No Symptoms
EENT: Reports No Symptoms
Respiratory: Reports No Symptoms
Cardiac: Reports No Symptoms
Abdomen/GI: Reports No Symptoms
: Reports No Symptoms
Musculoskeletal: Reports Joint Pain and Muscle Pain
Integumentary: Reports No Symptoms
Neurological: Reports Weakness
Psych: Reports No Symptoms
Endocrine: Reports No Symptoms
Hematologic/Lymphatic: Reports No Symptoms
Immunology: Reports No Symptoms
Physical Exam
Active Medications
Generic Name Dose Route Start Last Admin
Trade Name Freq PRN Reason Stop Dose Admin
Acetaminophen 650 mg 01/24/24 22:24
Acetaminophen 650 Mg Rectal Suppository RECTAL 02/21/24 22:23
Q4HPRN PRN
HODGE, mild pain, or temp >100.4F
Acetaminophen 1,000 mg 01/25/24 16:00 01/29/24 09:13
Acetaminophen 500 Mg Tablet PO 02/22/24 15:59 1,000 mg
TID SUSY Administration
Aspirin 81 mg 01/25/24 08:00 01/29/24 09:13
Aspirin 81 Mg (Enteric Coated) Tablet PO 02/22/24 07:59 81 mg
DAILY SUSY Administration
Atorvastatin Calcium 40 mg 01/25/24 20:00 01/28/24 20:05
Atorvastatin (Lipitor) 40 Mg Tablet PO 02/22/24 19:59 40 mg
DAILY@1999 SUSY Administration
Clopidogrel Bisulfate 75 mg 01/25/24 08:00 01/29/24 09:13
Clopidogrel 75 Mg Tablet PO 02/22/24 07:59 75 mg
DAILY SUSY Administration
Diclofenac Sodium 0 gram 01/25/24 13:00 01/29/24 13:15
Diclofenac 1% Topical Gel 100 Gram Tube TOPICAL 02/22/24 12:59 Not Given
QID SUSY
Protocol
Enoxaparin Sodium 40 mg 01/25/24 18:00 01/28/24 17:31
Enoxaparin Sodium 40 Mg/0.4 Ml Syringe SC 02/22/24 17:59 40 mg
QPM SUSY Administration
Lidocaine 1 patch 01/25/24 10:45 01/29/24 09:13
Lidocaine 4% Topical Patch TOPICAL 02/22/24 10:44 1 patch
DAILY SUSY Administration
Miconazole Nitrate 0 applic 01/24/24 23:00 01/29/24 09:25
Miconazole Powder Bottle TOPICAL 02/21/24 22:59 1 applic
BID SUSY Administration
Patch Removal 0 patch 01/25/24 20:00 01/28/24 20:05
Remove Lidocaine Patch REMOVE 02/22/24 19:59 1 patch
DAILY@1999 SUSY Administration
Sodium Chloride 0 flush 01/24/24 23:00 01/28/24 07:59
Sodium Chloride 0.9% (Flush) Syringe IV 02/21/24 22:59 1 flush
PER PROTOCOL SUSY Administration
Vital Signs
Temp Pulse Resp BP Pulse Ox
97.9 F 60 18 117/48 95
01/29/24 15:00 01/29/24 15:00 01/29/24 15:00 01/29/24 15:00 01/29/24 15:00
Height 5 ft 6 in
Actual Weight 72.8 kg
Body Mass Index (BMI) 0.0
Physical Exam
Physical Exam:
General Appearance/Observation: Well-developed, well-nourished individual in no apparent distress. Lying in bed resting.
Pain/Comfort Assessment: 2 low back pain, no radiation
Mood/Affect: Appropriate
Eyes: Conjunctiva/Lids: normal Pupils: pupils equal round and reactive to light and Accommodation
Ears/Nose/Throat: oral mucosa moist, throat clear. Lips/Teeth/Gums: normal
Neck: No muscle spasm or tenderness
Cardiovascular: Heart: regular, no murmur
Pulses: dorsalis pedis 2+ bilaterally
Respiratory: Respiratory Effort/Chest Expansion: normal Auscultation: Clear to auscultation bilaterally
Gastrointestinal: abdomen not tender, no distension, normal abdominal bowel sounds
Genitourinary: No Rivera
Rectal Exam: Deferred
Extremities: Edema: None Cyanosis: None Trophic changes: None
Neurology Exam:
Orientation: Alert, Oriented to self, Time, Place
Memory: Seems intact immediately but delayed memory impaired
Higher cortical function
Speech: Maybe mild expressive aphasia, few word finding difficulty
Comprehension: Intact
Two step command: Intact
Cranial Nerves:
CNII: Pupillary light reflex: Intact Visual Field: Intact
CN III, IV, : Extraocular muscles: Intact
CN V: Facial Sensation at Forehead: Intact , Maxilla: Intact, Mandible: Intact
CN VII: Facial movement: Symmetric
CN VIII: Hearing: Normal
CN IX/X: Speech & swallow: Normal, Position of Uvula: Midline
CN XI: Shoulder shrug: Symmetric
CN XII: Tongue protrusion: Midline
Sensory:
Light touch: Intact in bilateral upper and lower extremities
Reflexes:
Biceps: 1+ bilaterally
Achilles: 1+ bilaterally
Babinski: Downgoing bilaterally
Clonus: None
Cayden: Negative bilaterally
Cerebellar: Dysmetria/Ataxia: Mild right drift and dysmetria with FNF testing on right
Musculoskeletal:
Motor: (Manual muscle scale 0-5)
Muscle SA EF WE EE FF FA HF KE DF EHL PF
Right 4 5 5 5 5 4 4 5 5 5 5
Left 5 5 5 5 5 5 5 5 5 5 5
Tone: Normal in all extremities
Range of Motion: Passively within normal limits in all extremities
Lab Results
01/25/24 06:11
01/25/24 06:11
WBC 8.3 10^3/uL (4.8-10.8) 01/25/24 06:11
Hgb 12.8 g/dL (13.0-18.0) L 01/25/24 06:11
Hct 37.2 % (39.0-52.0) L 01/25/24 06:11
MCV 94.9 fL (80.0-94.0) H 01/25/24 06:11
Plt Count 139 10^3/uL (130-400) 01/25/24 06:11
Sodium 139 mmol/L (135-145) 01/25/24 06:11
Potassium 4.2 mmol/L (3.5-5.1) 01/25/24 06:11
Chloride 107 mmol/L (98-107) 01/25/24 06:11
Carbon Dioxide 24 mmol/L (22-30) 01/25/24 06:11
BUN 16 mg/dl (9-20) 06/14/24 06:11
Creatinine 0.8 mg/dL (0.7-1.3) 01/25/24 06:11
eGFR > 60.00 01/25/24 06:11
Glucose 84 mg/dl (70-99) 01/25/24 06:11
Hemoglobin A1c 5.6 % (4.0-5.6) 01/25/24 06:11
Calcium 9.2 mg/dl (8.4-10.2) 01/25/24 06:11
Total Bilirubin 1.0 mg/dl (0.2-1.3) 01/24/24 17:26
AST 36 U/L (17-59) 01/24/24 17:26
ALT 50 U/L (0-50) 01/24/24 17:26
Alkaline Phosphatase 113 U/L (38-126) 01/24/24 17:26
Total Protein 6.3 g/dl (6.3-8.2) 01/24/24 17:26
Albumin 3.7 g/dl (3.5-5.0) 01/24/24 17:26
Diagnostic Results
As per HPI.
Comorbidities / Impairment Group
Comorbidities:
Low back pain, recent compression fracture, aortic aneurysm,
Impairment Group:
CVA, right weakness, aphasia
Assessment / Plan
Plan
Assessment:
83 year old male with left MCA territory infarcts, probable embolic, right weakness, coordination deficits, expressive aphasia
PM&R PT/OT to increase independence with ADLs, improve balance, coordination, endurance, strength, mobility, community reintegration, decreased burden of care on others and family education.
CVA: Secondary prophylaxis with aspirin, plavix, statin, and blood pressure control (SBP less than 180 and diastolic less than 100 to participate with therapy for ischemic stroke). Continue to monitor neurologic status.
Right dominant hemiparesis: High risk for falls and sliding out of chair/bed. Safety reinforced.
- Avoid using affected arm to help lift or pull patient as this will cause trauma to the shoulder.
Aphasia: speech evaluation, more expressive aphasic.
Recent lumbar compression fracture: No need presently for intervention. Pain control, acetaminophen, lidocaine/diclofenac topical. Will monitor.
Psych: Psychology consult. Monitor mood, adjust medications as needed.
Skin: monitor for pressure sores/rashes/lesions.
Pain: acetaminophen as needed.
Bowel: Colace and Senna, PRN bisacodyl.
Bladder: Time void, PVRs, PRN straight cath.
DVT Prophylaxis: Lovenox SQ
Pulmonary: Incentive spirometry
Safety: Continue to reinforce assistance with all transfers.
Code Status: DNR
Dispo (date/plan/equipment needs): Home with family care. Social history reviewed.
Functional and Medical Goals: Modified Independent with ADL�s, ambulation, transfers
Summary
-
Things that must be addressed in Hospital prior to discharge:
1. Please continue bedside PT/OT.
2. Please continue speech therapy.
3. Patient must be stable on oral pain medications.
4. Blood pressure must be less than 180 systolic and 100 diastolic for 24 hours before being stable for transfer to SNF/acute rehab.
5. Please give blood pressure parameters.
6. Please comment on dvt chemoprophylaxis restrictions.
Discharge Destination: Acute rehab
Summary of recommendations:
- Discharge Destination: Acute rehab when medically stable and appropriate. Needs PT/OT/Speech therapy to achieve goals of modified independent with mobility, gait, ADLs and improve speech and swallowing to previous level of function and ability to
discharge home alone.
Thank you for allowing me to care for your patient. Please contact me with any questions or concerns.
Comments
-
This note was dictated using a voice recognition system. Please excuse any typographical errors from water mechanic. If you believe there are any discrepancies, please notify our office.
[2024-01-29] MEDS: LOVENOX 40 MG SC (17:55)
[2024-01-29] MEDS: LIPITOR 40 MG PO (19:52)
[2024-01-30] VITALS (7 sets, daily range): BP systolic 114–174; BP diastolic 40–86; PULSE 57; O2SAT 95
--- NOTE | 2024-01-30 03:59 | DOWNTIME ---
There was a [employer] Client Computer Network Engineer Downtime on 01/30/2024 from 0100 to 01/30/2024 at 0337. Downtime documentation of patient's care, including medication administrations, has been reconciled in the electronic record per guidelines. Refer to the
patient's paper chart under the miscellaneous tab to see printed paper medication records and downtime forms.
--- NOTE | 2024-01-30 08:49 | W.PN.CARDCBS ---
Addendum entered and electronically signed by Abhishek Rubio MD 01/30/24 10:22:
I saw and examined the patient.
The Seed Yeast Operator's note was reviewed and I agree with the note.
Comment: 83M presenting with acute CVA
Underwent RITA which identified dilated ascending aorta and moderate AI, but no cardioembolic source of stroke
Maintaining sinus rhythm on tele
Plan for assisted outpatient night monitor to be applied at [facility]
Outpatient cardiology follow-up arranged
We will sign off, please recall as needed
Original Note:
Today's Communication / Plan
-
14 day Rhythm Star to be applied at [facility]
BP and HR controlled without meds, bradycardic at times
Cardiology follow up arranged
Impression / Plan
-
PCP: Dr. Lerma
Cardiology: None prior to admission, initial consult Lea Hassan
Impression:
Presented 01/24/2024 with right arm weakness and aphasia
Acute stroke involving left middle cerebral artery distribution on MRI
Previous right-sided temporoparietal ischemic stroke
Interstitial lung disease
Cognitive impairment
Hypertension
Hyperlipidemia
Moderate aortic valve insufficiency
Abnormal RITA
Dilated aortic root with minimally dilated ascending aorta and uniform thickening in the media of the descending aorta at 30cm then up through the arch by RITA 01/28/24
Descending thoracic aortic aneurysm of 49 mm by CTA 01/28/[address] angio chest 01/28/2024: fusiform but slightly eccentric aneurysmal dilatation of the upper aspect of the descending thoracic aorta which measures 5 cm in maximal diameter with predominantly noncalcified atherosclerotic plaque versus thrombus along
its posterior and left lateral margin. Fusiform aneurysmal dilatation of the abdominal aorta at the level of the SMA origin to approximately 4.5 cm in diameter thrombus versus noncalcified atherosclerotic plaque at its posterior and right lateral
margin. Minimal fusiform aneurysmal dilatation of the ascending thoracic aorta which measures 4 cm in diameter
Brain MRI 01/26/2024 numerous scattered acute infarcts foci predominantly in the left middle cerebral artery distribution. Small region of encephalomalacia in the posterior right temporal consistent with old infarct. There is a small focus of low
intensity susceptibility right parietal lobe consistent with hemosiderin related to old hemorrhagic infarct.
Head and neck CTA 01/24/2024 no evidence of high-grade stenosis or occlusion arterial vasculature. Calcified atherosclerosis at the bilateral carotid artery bifurcations less than 50% stenosis.
Echo 01/25/24: ejection fraction 65 to 70%. Mild LVH. Moderate AI which is eccentric trace TR with PA pressure 25 to 30 mmHg
RITA 01/28/24: Normal BiV size and function without wall motion abnormality, moderate aortic regurgitation, dilated aortic root at 4.4 cm, minimally dilated ascending aorta at 3.9 cm, uniform thickening and what appears to be the media of the
descending aorta beginning around 30 cm up through the arch, no obvious evidence of ulceration or penetration, no evidence of thrombus or spontaneous echo contrast in the LA or COLTON
Plan:
-Presented 01/24/2024 with right arm weakness and aphasia and found to have new acute stroke with aphasia and right-sided weakness consistent with left middle cerebral artery distribution.
-Patient had RITA 01/28/24 that did not show evidence of thrombus in the LA or COLTON. There was an abnormality with uniform thickening that appeared to be in the media and stretched from the descending aorta at about 30 cm up to the arch. CT angio of
the chest 01/28/24 showed a descending thoracic aortic aneurysm prompting vascular surgery consultation, they recommended repeat imaging in 6 months.
-Toprol XL was not added due to bradycardia. Patient has otherwise been normotensive without BP meds.
-Neurology has recommended DAPT with aspirin and Plavix for 21 days and then Plavix indefinitely
-Outpatient dose of atorvastatin 40 mg daily has been continued. LDL was 62.
-No evidence of atrial arrhythmia on tele.
-14 day Rhythm Star monitor to be applied at discharge, once patient has arrived at [facility]. Patient scheduled for transfer to [facility] 01/30/24 and monitor will be applied once patient is at [facility] so that [facility] monitor application services manager can explain
process to [facility] staff.
HPI: He is an 83-year-old man with previous history of right-sided temporoparietal ischemic stroke with cognitive impairment. He also has a history of hypertension/hyperlipidemia. In addition to interstitial lung disease. He presented with acute
onset of right arm weakness and aphasia. He was outside of the window for tenecteplase given symptoms started 6/12 in the evening. It is felt that etiology may be mbolic source. Brain MRI was possibly consistent with atheroembolic source. Patient
is making good recovery overall. He denies chest pain, palpitations, dizziness and syncope. His blood pressure is stable.
Progress Note - Delivery Rn
Subjective
Date of Service: January 30, 2024
Feels well, eating breakfast laying down in flat in bed, he says he always eats that way
Objective
Labs:
01/25/24 06:11
01/25/24 06:11
Labs
Hgb 12.8 g/dL (13.0-18.0) L 01/25/24 06:11
Hct 37.2 % (39.0-52.0) L 01/25/24 06:11
Plt Count 139 10^3/uL (130-400) 01/25/24 06:11
Sodium 139 mmol/L (135-145) 01/25/24 06:11
Potassium 4.2 mmol/L (3.5-5.1) 01/25/24 06:11
BUN 16 mg/dl (9-20) 01/25/24 06:11
Creatinine 0.8 mg/dL (0.7-1.3) 01/25/24 06:11
Glucose 84 mg/dl (70-99) 01/25/24 06:11
Vital Signs and I&O:
Vital Signs
Temp Pulse Resp BP Pulse Ox
98.5 F 56 18 129/40 97
01/30/24 06:55 01/30/24 06:55 01/30/24 06:55 01/30/24 06:55 01/30/24 06:55
Vital Signs
Temp Pulse Resp BP Pulse Ox
98.5 F 56 18 129/40 97
01/30/24 06:55 01/30/24 06:55 01/30/24 06:55 01/30/24 06:55 01/30/24 06:55
Intake & Output
01/28/24 01/29/24 01/30/24 01/31/24
06:59 06:59 06:59 06:59
Intake Total 660 / 660 540 / 540 1080 / 1080
Balance 660 / 660 540 / 540 1080 / 1080
Physical Exam
Physical Exam
GEN: AAO to person, place and situation
HEENT: EOMI
LUNGS: No audible
CV: SR on tele
ABD: ND
EXT: No edema
NEURO: Gross non-focal
SKIN: No rash
[2024-01-30] MEDS: TYLENOL 1000 MG PO ×2 (09:10→15:59)
[2024-01-30] MEDS: ASPIR LOW (ENTERIC COATED) 81 MG PO (09:11)
[2024-01-30] MEDS: PLAVIX 75 MG PO (09:11)
[2024-01-30] MEDS: LIDOCAINE 4% PATCH 1 PATCH TOPICAL (09:12)
[2024-01-30] MEDS: DESENEX/MITRAZOL/ZEASORB 1 APPLIC TOPICAL ×2 (09:13→20:07)
[2024-01-30] MEDS: DICLOFENAC 1% TOPICAL GEL 2 GRAM TOPICAL ×3 (09:16→17:49)
--- NOTE | 2024-01-30 10:52 | W.PN.HOSP.TC ---
Today's Communication/Plan
-
Monitor vital signs and see plan
Awaiting insurance authorization for [facility]
Continue with dual antiplatelet therapy
Time of discharge 38 minutes
Assessment / Plan
Assessment / Plan
IMPRESSION:
Patient 83 years old male with history of hyperlipidemia, TIA/CVA, recent lumbar compresSion fracture presented to the hospital with sudden onset of right-sided weakness and aphasia consistent with acute stroke, likely ischemic in nature. TPA not
given given unclear time of onset.
HEAD CT 01/24/24
IMPRESSION:
No acute intracranial abnormality. Chronic findings, as above.
HEAD/NECK CTA 01/24/24
IMPRESSION:
No CT evidence for high-grade stenosis or occlusion of the arterial vasculature in the head or neck. Calcified atherosclerosis at the bilateral carotid bifurcations contributing to less than 50% stenosis.
MRI BRAIN 01/26/24
IMPRESSION:
There are numerous scattered acute infarct foci predominantly in the left middle cerebral artery distribution, as described. No associated mass effect.
PLAN:
Acute stroke:
-Not a candidate for TNKase due to being out of the time window.
-appreciate neurology
-CT scan of the head no acute intracranial abnormality
-CTA of the head and neck no significant stenosis
-MRI results above
-continue aspirin/plavix; now for 3 months per neurology recs
echo 01/28 with some thickening in the descending aorta. 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 Patient was seen by vascular surgery who recommends patient follow-up with them outpatient and to continue
antiplatelet therapy and aggressive blood pressure management. Neurology also do not recommend anticoagulation at this time and wants patient to be on at least 3 months of dual antiplatelet therapy.
No thrombus seen on echo. Plan for cardiac monitoring when at [facility]
-Continue statin
-PT/OT/ST
- physiatry following
s/p RITA 01/27 with moderate AR, dilated aortic root, uniform thickening and what appears to be the medial of the descending aorta. No evidence of thrombus in the left atrium or left atrial appendage
Prior history of TIA/CVA
Lumbar spine compression fracture
-recently diagnosis
-difficult with mobility
-resume lidocaine patch
-topical diclofenac PRN
-pain improving
-PT/OT
Abnormal urinalysis:
Pyuria 21-25 WBC and moderate urine bacteria
Currently afebrile and no leukocytosis so hold off on antibiotics
Low threshold to start antibiotics if any signs of active infection.
asymptomatic bacteruria - no need to treat
DVT prophylaxis:
Lovenox 40 mg SQ daily
CODE STATUS:
DNR and confirmed with family at bedside
General: No Apparent Distress
HEENT: PERRLA
Respiratory: Clear to Auscultation; Negative Wheezes
Cardiac: S1/S2
GI: Soft and Nontender
Musculoskeletal: No Edema
Skin: Warm and Dry; Negative Rash
Neuro: AO x 3
Psych: Calm
Anticipated Discharge: Today
Subjective/Interval History
-
Date of Service: January 30, 2024
Denies pain
Objective Data
-
Vital Signs:
Vital Signs
Temp Pulse Resp BP Pulse Ox
98.5 F 56 18 129/40 97
01/30/24 06:55 01/30/24 06:55 01/30/24 06:55 01/30/24 06:55 01/30/24 06:55
I&O
01/29/24 01/30/24 01/31/24
06:59 06:59 06:59
Intake Total 540 / 540 1080 / 1080
Balance 540 / 540 1080 / 1080
--- NOTE | 2024-01-30 10:59 | W.DCSUMMARY ---
Discharge Summary
Discharge Data
Date of Admission: 01/24/24
Date of Discharge: 02/02/24
-
Pending Results: No
Hospital Course
83-year-old male with history of hyperlipidemia, TIA/CVA, recent lumbar compression fracture came to the hospital with acute stroke. MRI was consistent with numerous scattered acute infarct. Given these findings neurology recommended cardiology
evaluation for RITA. Patient underwent RITA which showed moderate AR, dilated aortic root and uniform thickening around the descending aorta. Given these findings CTA was done which showed aneurysm of the descending thoracic aorta. Patient was then
seen by vascular surgery who recommended patient to follow-up with them outpatient. Neurology then recommended patient to continue dual antiplatelet therapy for at least 3 months and then continue Plavix alone. Patient was also eval by physical
therapy who recommended acute rehab. However his insurance company denied acute rehab. Family and patient accepted to rather go to SNF. Patient was then discharged to SNF with clear instructions to follow-up with all his physicians outpatient.
Discharge Plan
-
Patient Disposition: Snf/SNF
Discharge Diagnosis/Procedures: Acute stroke
Descending thoracic aorta aneurysm
Lumbar spine compression fracture
Pyuria
Diet: As tolerated
Activity: As tolerated
Others Tests: Prior to her vascular surgery follow-up on 08/04/2024, please obtain CAT scan imaging and blood work. In order to schedule these studies please call
Activity Restrictions/Additional Instructions:
-You will need dual antiplatelet therapy for at least 3 months and then Plavix alone. Follow-up with vascular surgery and neurology
-A 14 day ambulatory heart monitor will be placed once you are transferred to [facility].
Referrals:
Chuckie Nicole MD [Active] - in three to four weeks
Hung Rivera III, MD [Active] - 08/04/24 10:45 am
Morgan Lerma MD [Family Provider] - in less than 1 week
Lea Hassan MD [Active] - (You have an appt to see Dr. Hassan's nurse practitioner, Jena, at the [place] office 02/28/24 at 2:40 PM. Please call [phone] if you need to reschedule.)
Prescriptions:
New
clopidogrel 75 mg Tablet
75 mg PO DAILY Qty: 0 0RF
miconazole nitrate [Miconazorb AF] 2 % Powder
1 applic topical BID Qty: 85 0RF
Continued
atorvastatin 40 mg Tablet
40 mg PO DAILY@1999
aspirin 81 mg Tablet,Delayed Release (/Ec)
81 mg PO DAILY
acetaminophen 500 mg Tablet
1,000 mg PO TID@0800,1400,1999
Changed
diclofenac sodium 1 % Gel
1 g TOPICAL QID Qty: 0 0RF
Discharge Orders:
Discharge Patient (As Directed); Ordered 01/30/24
Ordered By: Kevin Ruiz
Discharge Date and Time
Discharge Date/Time: 02/02/24 12:14
Print Language: SWEDISH
--- NOTE | 2024-01-30 11:40 | CM ---
Addendum entered by Ness Marin RN 01/30/24 14:54:
Received fax from [employer] with denial for acute rehab. Contacted Sai from [facility] and Dr Leon [phone]. Information given for peer to peer review. Dr Leon texted that MD denied acute only SNF.
Son sent information to appeal.
Sai Mos aware.Olinda at [facility] aware.
Original Note:
MD entered order for discharge.
Spoke with Sai at [facility] bed ready .
Spoke with son Cash who agrees with plan for dc to [facility] rehab.
Spoke with Olinda at [facility] . She said Miriam at [facility] will establish auth . Clinical faxed x3 to [phone].Olinda said clinical was received.
Awaiting auth from [employer] [employer] insurance.
[facility]
report [phone]
fax [phone]
PLAN To [facility] after auth
[2024-01-30] MEDS: LOVENOX 40 MG SC (17:49)
[2024-01-30] MEDS: LIPITOR 40 MG PO (20:06)
[2024-01-30] MEDS: TYLENOL PO (21:27)
[2024-01-30] MEDS: DICLOFENAC 1% TOPICAL GEL TOPICAL (21:27)
[2024-01-31] VITALS (8 sets, daily range): BP systolic 104–168; BP diastolic 41–58; PULSE 60–77; O2SAT 97
[2024-01-31] MEDS: DICLOFENAC 1% TOPICAL GEL 2 GRAM TOPICAL (08:38)
[2024-01-31] MEDS: LIDOCAINE 4% PATCH 1 PATCH TOPICAL (08:39)
[2024-01-31] MEDS: ASPIR LOW (ENTERIC COATED) 81 MG PO (08:42)
[2024-01-31] MEDS: PLAVIX 75 MG PO (08:42)
[2024-01-31] MEDS: TYLENOL 1000 MG PO ×2 (08:42→17:03)
[2024-01-31] MEDS: DESENEX/MITRAZOL/ZEASORB 1 APPLIC TOPICAL ×2 (08:45→20:08)
--- NOTE | 2024-01-31 11:14 | W.PN.HOSP.TC ---
Today's Communication/Plan
-
Monitor vital signs and see plan
Insurance denied acute rehab. Son appealing
Dispo planning
Patient will need long-term outpatient long term care social worker on discharge
Continue dual antiplatelet therapy
Assessment / Plan
Assessment / Plan
IMPRESSION:
Patient 83 years old male with history of hyperlipidemia, TIA/CVA, recent lumbar compresSion fracture presented to the hospital with sudden onset of right-sided weakness and aphasia consistent with acute stroke, likely ischemic in nature. TPA not
given given unclear time of onset.
HEAD CT 01/24/24
IMPRESSION:
No acute intracranial abnormality. Chronic findings, as above.
HEAD/NECK CTA 01/24/24
IMPRESSION:
No CT evidence for high-grade stenosis or occlusion of the arterial vasculature in the head or neck. Calcified atherosclerosis at the bilateral carotid bifurcations contributing to less than 50% stenosis.
MRI BRAIN 01/26/24
IMPRESSION:
There are numerous scattered acute infarct foci predominantly in the left middle cerebral artery distribution, as described. No associated mass effect.
PLAN:
Acute stroke:
-Not a candidate for TNKase due to being out of the time window.
-appreciate neurology
-CT scan of the head no acute intracranial abnormality
-CTA of the head and neck no significant stenosis
-MRI results above
-continue aspirin/plavix; now for 3 months per neurology recs
echo 01/28 with some thickening in the descending aorta. 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 Patient was seen by vascular surgery who recommends patient follow-up with them outpatient and to continue
antiplatelet therapy and aggressive blood pressure management. Neurology also do not recommend anticoagulation at this time and wants patient to be on at least 3 months of dual antiplatelet therapy.
No thrombus seen on echo. Plan for cardiac monitoring when at [place]
-Continue statin
-PT/OT/ST
- physiatry following
s/p RITA 01/27 with moderate AR, dilated aortic root, uniform thickening and what appears to be the medial of the descending aorta. No evidence of thrombus in the left atrium or left atrial appendage
Prior history of TIA/CVA
Lumbar spine compression fracture
-recently diagnosis
-difficult with mobility
-resume lidocaine patch
-topical diclofenac PRN
-pain improving
-PT/OT
Abnormal urinalysis:
Pyuria 21-25 WBC and moderate urine bacteria
Currently afebrile and no leukocytosis so hold off on antibiotics
Low threshold to start antibiotics if any signs of active infection.
asymptomatic bacteruria - no need to treat
DVT prophylaxis:
Lovenox 40 mg SQ daily
CODE STATUS:
DNR and confirmed with family at bedside
General: No Apparent Distress
HEENT: PERRLA
Respiratory: Clear to Auscultation; Negative Wheezes
Cardiac: S1/S2
GI: Soft and Nontender
Musculoskeletal: No Edema
Skin: Warm and Dry; Negative Rash
Neuro: AO x 3
Psych: Calm
Anticipated Discharge: Today
Subjective/Interval History
-
Date of Service: January 31, 2024
Denies pain
Objective Data
-
Vital Signs:
Vital Signs
Temp Pulse Resp BP Pulse Ox
97.1 F 56 20 126/57 94
01/31/24 07:18 01/31/24 07:18 01/31/24 07:18 01/31/24 07:18 01/31/24 07:18
I&O
01/30/24 01/31/24 02/01/24
06:59 06:59 06:59
Intake Total 1080 / 1080 720 / 720
Balance 1080 / 1080 720 / 720
[2024-01-31] MEDS: DICLOFENAC 1% TOPICAL GEL TOPICAL (13:00)
--- NOTE | 2024-01-31 14:12 | CM ---
Spoke with Angelica tucker from [facility] she called to check on Appeal . Mame said that appeal was filed by son Cedrick .
Cedrick son said he submitted appeal to [facility] . Awaiting results.Cedrick said his [place] needs rehab [place]. Will recommend SNF if needed.
If appeal upheld will need a SNF referral.
PLAN Awaiting family appeal to [facility] determination
--- NOTE | 2024-01-31 16:23 | PTCARENOTE ---
Resumed care of patient @ 15:00. Plan of care ongoing.
[2024-01-31] MEDS: LOVENOX 40 MG SC (17:03)
[2024-01-31] MEDS: DICLOFENAC 1% TOPICAL GEL 100 GRAM TOPICAL ×2 (17:04→20:09)
[2024-01-31] MEDS: LIPITOR 40 MG PO (20:08)
[2024-01-31] MEDS: TYLENOL PO (22:06)
[2024-02-01] VITALS (7 sets, daily range): BP systolic 107–136; BP diastolic 42–55; PULSE 55
[2024-02-01] MEDS: DESENEX/MITRAZOL/ZEASORB 1 APPLIC TOPICAL ×2 (08:51→21:11)
[2024-02-01] MEDS: PLAVIX 75 MG PO (08:51)
[2024-02-01] MEDS: TYLENOL 1000 MG PO (08:51)
[2024-02-01] MEDS: ASPIR LOW (ENTERIC COATED) 81 MG PO (08:51)
[2024-02-01] MEDS: LIDOCAINE 4% PATCH TOPICAL (08:52)
[2024-02-01] MEDS: DICLOFENAC 1% TOPICAL GEL TOPICAL ×4 (08:53→20:47)
--- NOTE | 2024-02-01 11:38 | W.PN.HOSP.TC ---
Today's Communication/Plan
-
Monitor vital signs see plan
Awaiting insurance decision on appeal; CM aware
cw asa and plavix
Assessment / Plan
Assessment / Plan
IMPRESSION:
Patient 83 years old male with history of hyperlipidemia, TIA/CVA, recent lumbar compresSion fracture presented to the hospital with sudden onset of right-sided weakness and aphasia consistent with acute stroke, likely ischemic in nature. TPA not
given given unclear time of onset.
HEAD CT 01/24/24
IMPRESSION:
No acute intracranial abnormality. Chronic findings, as above.
HEAD/NECK CTA 01/24/24
IMPRESSION:
No CT evidence for high-grade stenosis or occlusion of the arterial vasculature in the head or neck. Calcified atherosclerosis at the bilateral carotid bifurcations contributing to less than 50% stenosis.
MRI BRAIN 01/26/24
IMPRESSION:
There are numerous scattered acute infarct foci predominantly in the left middle cerebral artery distribution, as described. No associated mass effect.
PLAN:
Acute stroke:
-Not a candidate for TNKase due to being out of the time window.
-appreciate neurology
-CT scan of the head no acute intracranial abnormality
-CTA of the head and neck no significant stenosis
-MRI results above
-continue aspirin/plavix; now for 3 months per neurology recs
echo 01/28 with some thickening in the descending aorta. 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 Patient was seen by vascular surgery who recommends patient follow-up with them outpatient and to continue
antiplatelet therapy and aggressive blood pressure management. Neurology also do not recommend anticoagulation at this time and wants patient to be on at least 3 months of dual antiplatelet therapy.
No thrombus seen on echo. Plan for cardiac monitoring when at [facility]
-Continue statin
-PT/OT/ST
- physiatry following
s/p RITA 01/27 with moderate AR, dilated aortic root, uniform thickening and what appears to be the medial of the descending aorta. No evidence of thrombus in the left atrium or left atrial appendage
Prior history of TIA/CVA
Lumbar spine compression fracture
-recently diagnosis
-difficult with mobility
-resume lidocaine patch
-topical diclofenac PRN
-pain improving
-PT/OT
Abnormal urinalysis:
Pyuria 21-25 WBC and moderate urine bacteria
Currently afebrile and no leukocytosis so hold off on antibiotics
Low threshold to start antibiotics if any signs of active infection.
asymptomatic bacteruria - no need to treat
DVT prophylaxis:
Lovenox 40 mg SQ daily
CODE STATUS:
DNR and confirmed with family at bedside
Dispo: pending appeal by son; insurance denies acute. CM aware
General: No Apparent Distress
HEENT: PERRLA
Respiratory: Clear to Auscultation; Negative Wheezes
Cardiac: S1/S2
GI: Soft and Nontender
Musculoskeletal: No Edema
Skin: Warm and Dry; Negative Rash
Neuro: AO x 3
Psych: Calm
Anticipated Discharge: Today
Subjective/Interval History
-
Date of Service: February 01, 2024
denies pain
Objective Data
-
Vital Signs:
Vital Signs
Temp Pulse Resp BP Pulse Ox
97.9 F 61 16 107/43 94
02/01/24 11:00 02/01/24 11:00 02/01/24 11:00 02/01/24 11:00 02/01/24 11:00
I&O
01/31/24 02/01/24 02/02/24
06:59 06:59 06:59
Intake Total 720 / 720 840 / 840
Balance 720 / 720 840 / 840
--- NOTE | 2024-02-01 12:29 | CM ---
Spoke with Angelica tucker from [facility] she called to check on Appeal . Mame said that appeal was filed by son Cedrick .
Cedrick son said he submitted appeal to [facility] . Awaiting results.Cedrick said his dad needs rehab [place]. Will recommend SNF if needed.
If appeal upheld will need a SNF referral.
PLAN Awaiting family appeal to [facility] determination
--- NOTE | 2024-02-01 12:30 | CM ---
Addendum entered by Ness Marin RN 02/01/24 16:26:
Cedrick did not hear from Appeal from [employer].Decision made pt will go to [facility] tomorrow.Son will drive him to .[facility] aware .Liaison for [facility] tomorrow is Nyasia #[phone]
[facility] tomorrow
report [phone]

Original Note:
Spoke with Olinda at [facility].She will contact Stephanie from [facility] to check on appeal status.
Olinda said there is a [facility] bed tomorrow if pt and family request . Referral update in care port.
Spoke with Angelica tucker from [facility] waiting on appeal .
Cedrick son said he submitted appeal to [employer] but has not heard determination.Son agree if determination by 4 pm today pt will go to [facility] tomorrow Son will transport..
PLAN :IF [facility] denial upheld pt will go to [facility] tomorrow report [phone]
[2024-02-01] MEDS: TYLENOL PO ×2 (15:43→21:26)
[2024-02-01] MEDS: LOVENOX 40 MG SC (17:41)
[2024-02-01] MEDS: LIPITOR 40 MG PO (20:46)
[2024-02-02 03:28] VITALS: BP 108/37
[2024-02-02 07:35] VITALS: BP 121/52
[2024-02-02] MEDS: DICLOFENAC 1% TOPICAL GEL TOPICAL (08:24)
[2024-02-02] MEDS: ASPIR LOW (ENTERIC COATED) 81 MG PO (08:24)
[2024-02-02] MEDS: PLAVIX 75 MG PO (08:24)
[2024-02-02] MEDS: DESENEX/MITRAZOL/ZEASORB 1 APPLIC TOPICAL (08:28)
[2024-02-02] MEDS: LIDOCAINE 4% PATCH TOPICAL (08:28)
[2024-02-02] MEDS: TYLENOL PO (08:28)
--- NOTE | 2024-02-02 09:33 | CM ---
GIOVANY spoke with Nyasia at [facility]. They are expecting Mr. Kapoor to be admitted to [facility] today.
I spoke with Mr. Kapoor and he confirmed that his son will transport, unsure what time he will arrive for discharge.
Nyasia was provided with 4E phone number for nurse report at her request.
Plan: Son to transport to [facility] today via car.
[facility]
report [phone]
--- NOTE | 2024-02-02 10:47 | W.PN.HOSP.TC ---
Today's Communication/Plan
-
Monitor vital signs and see plan
Patient family agreeable for SNF, plan for SNF.
Continue aspirin Plavix
Discharge today
Time of discharge 38 minutes
Assessment / Plan
Assessment / Plan
IMPRESSION:
Patient 83 years old male with history of hyperlipidemia, TIA/CVA, recent lumbar compresSion fracture presented to the hospital with sudden onset of right-sided weakness and aphasia consistent with acute stroke, likely ischemic in nature. TPA not
given given unclear time of onset.
HEAD CT 01/24/24
IMPRESSION:
No acute intracranial abnormality. Chronic findings, as above.
HEAD/NECK CTA 01/24/24
IMPRESSION:
No CT evidence for high-grade stenosis or occlusion of the arterial vasculature in the head or neck. Calcified atherosclerosis at the bilateral carotid bifurcations contributing to less than 50% stenosis.
MRI BRAIN 01/26/24
IMPRESSION:
There are numerous scattered acute infarct foci predominantly in the left middle cerebral artery distribution, as described. No associated mass effect.
PLAN:
Acute stroke:
-Not a candidate for TNKase due to being out of the time window.
-appreciate neurology
-CT scan of the head no acute intracranial abnormality
-CTA of the head and neck no significant stenosis
-MRI results above
-continue aspirin/plavix; now for 3 months per neurology recs
echo 01/28 with some thickening in the descending aorta. 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 Patient was seen by vascular surgery who recommends patient follow-up with them outpatient and to continue
antiplatelet therapy and aggressive blood pressure management. Neurology also do not recommend anticoagulation at this time and wants patient to be on at least 3 months of dual antiplatelet therapy.
No thrombus seen on echo. Plan for cardiac monitoring when at [facility]
-Continue statin
-PT/OT/ST
- physiatry following
s/p RITA 01/27 with moderate AR, dilated aortic root, uniform thickening and what appears to be the medial of the descending aorta. No evidence of thrombus in the left atrium or left atrial appendage
Prior history of TIA/CVA
Lumbar spine compression fracture
-recently diagnosis
-difficult with mobility
-resume lidocaine patch
-topical diclofenac PRN
-pain improving
-PT/OT
Abnormal urinalysis:
Pyuria 21-25 WBC and moderate urine bacteria
Currently afebrile and no leukocytosis so hold off on antibiotics
Low threshold to start antibiotics if any signs of active infection.
asymptomatic bacteruria - no need to treat
DVT prophylaxis:
Lovenox 40 mg SQ daily
CODE STATUS:
DNR and confirmed with family at bedside
Dispo: pending appeal by son; insurance denies acute. CM aware. now plan for SNF
General: No Apparent Distress
HEENT: PERRLA
Respiratory: Clear to Auscultation; Negative Wheezes
Cardiac: S1/S2
GI: Soft and Nontender
Musculoskeletal: No Edema
Skin: Warm and Dry; Negative Rash
Neuro: AO x 3
Psych: Calm
Anticipated Discharge: Today
Subjective/Interval History
-
Date of Service: February 02, 2024
denies pain
Objective Data
-
Vital Signs:
Vital Signs
Temp Pulse Resp BP Pulse Ox
97.7 F 56 18 121/52 91
02/02/24 07:35 02/02/24 07:35 02/02/24 07:35 02/02/24 07:35 02/02/24 07:35
I&O
02/01/24 02/02/24 02/03/24
06:59 06:59 06:59
Intake Total 840 / 840
Balance 840 / 840
[2024-02-02 11:17] VITALS: BP 97/54
--- NOTE | 2024-02-02 11:42 | PTCARENOTE ---
This nurse called and left voicemail with call back number for report to [phone] per CM note. Son at bedside to transport pt. to [facility].
--- NOTE | 2024-02-02 12:01 | CM ---
Addendum entered by Deborah Drummond 02/02/24 12:11:
Covid results negative; copy or report faxed to [phone] as requested by Nyasia at [facility].
Original Note:
GIOVANY received a call from Nyasia at [facility] regarding transfer time and covid results. Nyasia was advised that family was here to transport, and covid result was pending.
Nyasia advised that RN placed call to provide report, but needed to leave a voicemail at that time. Nyasia will notify nursing refuse collector supervisor to call RN at for report.
GIOVANY will ensure covid result is sent via fax when resulted to
Plan: Discharge to [facility] at [facility] today via family transport.
[2024-02-02 12:03] LABS: COVID-19 Antigen Negative (Negative)
== END 2024-02-02 12:14 | DRG 65 ==
LOC: 4 EAST ACU 22:00
PROVIDERS: ADMITTING PHYSICIAN Hospitalist; ATTENDING PHYSICIAN Internal Medicine; CONSULT PHYSICIAN Internal Medicine Cardiovascular Disease; CONSULT PHYSICIAN Physical Medicine & Rehabilitation; CONSULT PHYSICIAN Student in an Organized Health Care Education/Training Program; EMERGENCY PHYSICIAN Emergency Medicine; FAMILY PHYSICIAN Internal Medicine Geriatric Medicine; OTHER PHYSICIAN Surgery Vascular Surgery
DX: I63.9 Cerebral infarction, unspecified (principal); G81.91 Hemiplegia, unspecified affecting right dominant side; J84.9 Interstitial pulmonary disease, unspecified; M48.56XA Collapsed vertebra, not elsewhere classified, lumbar region, initial encounter for fracture; F03.90 Unspecified dementia, unspecified severity, without behavioral disturbance, psychotic disturbance, mood disturbance, and anxiety; G93.89 Other specified disorders of brain; I69.319 Unspecified symptoms and signs involving cognitive functions following cerebral infarction; I10 Essential (primary) hypertension; Z66 Do not resuscitate; I71.23 Aneurysm of the descending thoracic aorta, without rupture; I35.1 Nonrheumatic aortic (valve) insufficiency; R47.01 Aphasia; E78.5 Hyperlipidemia, unspecified; E78.00 Pure hypercholesterolemia, unspecified; R41.89 Other symptoms and signs involving cognitive functions and awareness; R82.81 Pyuria; R29.6 Repeated falls; Z79.82 Long term (current) use of aspirin; Z79.899 Other long term (current) drug therapy; Z91.81 History of falling; Z86.16 Personal history of COVID-19; Z87.891 Personal history of nicotine dependence
CPT/HCPCS: 0042T; 70450; 70496; 70498; 70551; 71275; 80048; 80053; 80061; 81003; 81015; 82728; 82746; 83036; 84443; 85025; 85027; 87077; 87086; 87186; 87811; 92507; 92523; 92526; 92610; 93005; 93306; 93312; 93320; 93325; 97110; 97116; 97129; 97163; 97167; 97530; 97535; 99285; Q9967

== ENCOUNTER 2024-02-15 13:23 | Emergency (ER) | payer OTHER, SELFPAY ==
[2024-02-15 13:25] VITALS: BP 136/58
[2024-02-15 13:49] VITALS: BP 114/51
--- NOTE | 2024-02-15 13:49 | ED.GENMED ---
Addendum entered and electronically signed by Manuel Quinonez PA-C 02/18/24 07:05:
Urine culture shows greater than 100,000 colony-forming units of Klebsiella. This was sensitive to cephalosporins. Patient started on cefuroxime. No indication for any change
Original Note:
History of Present Illness
General
Chief Complaint: Fall
Source: patient and ambulance crew
Exam Limitations: none
Time Seen by Provider: 02/15/24 13:45
Nursing documentation reviewed up to this point in time: agreed with
History of Present Illness
History of Present Illness:
83-year-old male with history of CVA January 2024, on Plavix, cognitive impairment, interstitial lung disease, AAA repair, HLD, HTN,presents from [facility] via EMS after reportedly falling out of bed. Pt states 'I fell out of bed.' He denies pain
initially but then says his right knee gives him problems but he has full range of motion as he lifts the knee up to point to it. He denies neck or back pain. He denies hitting his head. He denies N/V/D/C. Denies difficulty urinating or moving
his bowels
Son arrived at bedside, pt has chronic right knee pain. Right leg weaker than left. P/T aware. After CVA in January, DC'd to rehab and one week ago discharged back to independent living at [facility]. Gets P/T twice weekly there. Between family and
staff members son states there is someone there with him all day but not overnight.
Past History
Past History
ED Past Medical History: CVA (CVA 6), HTN, Hypercholesterolemia, Psychiatric (Early Alzheimer's) and Other
ED Past Surgical History: None
Social History
Tobacco: Former smoker
Alcohol: None
Personal:
Living: assisted living
Review of Systems
Review of Systems
Allergies reviewed?: Yes
All Other Systems: ROS reviewed and negative except as documented in HPI and ROS
Constitutional: Denies fever or fatigue
Respiratory: Denies trouble breathing
Cardiac: Denies chest pain
ABD/GI: Denies abdominal pain, nausea or vomiting
: Reports incontinence; Denies dysuria or difficulty voiding
Musculoskeletal: Reports no symptoms
Skin: Reports no symptoms
Neurological: Reports weakness (RLE with chronic weakness, knee pain); Denies dizzy or headache
Phy Exam
Physical Exam
Physical Exam:
GENERAL: No acute distress. Alert, oriented to name and place
CONSTITUTIONAL: Afebrile.
EYES: PERRL, conjunctivae normal
Neck: Supple
ENMT: moist mucus membranes, Pharynx nl
RESPIRATORY: Regular respirations, nonlabored, lungs clear.
CARDIOVASCULAR: Regular rate and rhythm, no murmurs, no rubs.
GI: Soft, nontender, normal BS
MUSCULOSKELETAL: No spinal bony tenderness. Moving upper extremities well with no pain on palpation. Moving lower extremities well with no pain on palpation. Moves with ease. Well perfused. No edema
SKIN: Warm, dry, pink
PSYCH: Normal mood and affect. Well kept, interactive and appropriate
NEUROLOGIC: Awake, alert and oriented x 2. Conversation appropriate, speech clear. No focal neurological deficits
Course
Orders/Labs/Results
Orders:
Orders
02/15/24 13:32
Hip, Right 2-3 Views [CR Hip - RT w/wo Pel 2-3 Vw*] Urgent
Comment:
Reason For Exam: fall
Include a pelvis x-ray?: Yes
02/15/24 13:33
Knee, Right 4 or More Views [CR Knee- Right 4 Or More View*] Urgent
Comment:
Reason For Exam: injury
02/15/24 13:49
0.9% Sodium Chloride 500 ml [Nss] 500 ml IV BOLUS
02/15/24 13:54
Basic Metabolic Panel Urgent
Complete Blood Count/With Diff Urgent
Urinalysis Reflex To Culture Urgent
Date Specimen was Collected: 02/15/24
Time Specimen was Collected: 13:54
Urine Microscopic Reflex Cult Urgent
Urine Culture Urgent
REAL Source: U
Specimen Description:
Date Specimen was Collected: 02/15/24
Time Specimen was Collected: 13:54
02/15/24 15:47
CefTRIAXone [Rocephin] 1,000 mg IV NOW STA
Abnormal Lab Results
02/15/24
13:54
RBC 4.50 L 10^6/uL
(4.70-6.10)
MCV 95.1 H fL
(80.0-94.0)
MCH 32.7 H pg
(27.0-31.0)
RDW 14.9 H %
(11.5-14.5)
MPV 10.5 H fL
(7.4-10.4)
Absolute Neuts (auto) 7.2 H 10^3/uL
(1.4-6.5)
Absolute Monos (auto) 0.7 H 10^3/uL
(0.1-0.6)
Neutrophils % 76.7 H %
(42.2-75.2)
Lymphocytes % 12.7 L %
(20.5-51.1)
Glucose 102 H mg/dl
(70-99)
Urine Ketones 1+ A
(Negative)
Ur Occult Blood Reflex Trace A
(Negative)
Leukocyte Esterase Rfl 2+ A
(Negative)
Urine WBC (Reflex) 90-100 A /HPF
(0-5)
Urine Bacteria (Reflex) Few A
(Negative)
02/15/24 13:54
02/15/24 13:54
Vital Signs
Initial and Last Documented VS:
Initial Vital Signs
Temp Pulse Resp BP Pulse Ox
98.9 F 73 22 136/58 98
02/15/24 13:25 02/15/24 13:25 02/15/24 13:25 02/15/24 13:25 02/15/24 13:25
Last Documented Vital Signs
Temp Pulse Resp BP Pulse Ox
97.7 F 56 20 125/54 97
02/15/24 14:45 02/15/24 16:00 02/15/24 16:00 02/15/24 16:00 02/15/24 16:00
MDM/Problems Addressed
Differential Diagnosis Includes:
UTI, dehydration, hip fx, right knee pathology
MDM/Problems Addressed:
83-year-old male with history of CVA January 2024, on Plavix, cognitive impairment, interstitial lung disease, AAA repair, HLD, HTN,presents from [facility] via EMS after reportedly falling out of bed. Pt states 'I fell out of bed.' He has no
recollection of the fall or who found him. He denies pain initially but then says his right knee gives him problems but he has full range of motion as he lifts the knee up to point to it. He denies neck or back pain. He denies hitting his head.
He denies N/V/D/C. Denies difficulty urinating or moving his bowels
Son arrived at bedside, [facility] security staff making their rounds late morning found pt on floor by bed, awake and alert.
Son states pt has chronic right knee pain, right leg weaker than left. P/T aware. After CVA in January, DC'd to rehab and one week ago discharged back to independent living at [facility]. Gets P/T twice weekly there. Between family and staff members
son states there is someone there with him all day but not overnight.
Very strong urine odor with concentrated urine
Afebrile, NAD
2:30 PM
CBC with no clinically significant abnormality
CMP: Normal
UA: Negative nitrates, 2+ leukocytes, WBCs 90-100, few squamous, few bacteria
Patient will be treated for urinary tract infection.
Hip and knee x-ray showed no acute bony abnormality.
Discharged to care of son back to [facility]
*Critical Care Note
Total Time (30-74mins, 75-104mins- exclusive of procedures): Not Applicable
ED Attending Note
-
Portions of this chart may have been created with voice recognition software.� Occasional wrong word or��sound alike� substitutions may have occurred due to the inherent limitations of voice recognition software.
Discharge Plan
Departure
Patient Disposition: Home (Routine Discharge)
Date of Disposition: 02/15/24
Time of Disposition: 15:53
Patient with high blood pressure during this ER visit?: No
Condition: Fair
Discharge Problem:
Acute urinary tract infection, Fall from bed
Instructions: Fall Prevention for Older Adults, Urinary Tract Infection - Men
Prescriptions:
New
cefuroxime axetil 500 mg tablet
500 mg PO BID 10 Days Qty: 20 0RF
No Action
atorvastatin 40 mg Tablet
40 mg PO DAILY@1999
aspirin 81 mg Tablet,Delayed Release (Dr/Ec)
81 mg PO DAILY
acetaminophen 500 mg Tablet
1,000 mg PO TID@0800,1400,1999
clopidogrel 75 mg Tablet
75 mg PO DAILY Qty: 0 0RF
diclofenac sodium 1 % Gel
1 g TOPICAL QID Qty: 0 0RF
miconazole nitrate [Miconazorb AF] 2 % Powder
1 applic topical BID Qty: 85 0RF
Referrals:
Morgan Lerma MD [Family Provider] - Follow up in 2-3 days
Activity Restrictions/Additional Instructions:
As we discussed, you have a urinary tract infection. You were given Rocephin 1 g intravenously here today
I sent a prescription to your pharmacy and [facility] for cefuroxime antibiotic to take 500 mg twice a day for 10 days
See your doctor in [facility] in 3 to 5 days for recheck
Drink at least 6 eight ounce glasses of water daily
Interventions
Interventions:
*Risk Screen - Suicide Last Done: 02/15/24 13:28
*General Assessment Last Done: 02/15/24 13:28
*Neglect/Abuse Screening Last Done: 02/15/24 13:28
ED- Fall Risk Assessment Last Done: 02/15/24 16:18
*ED COVID-19 Vaccine History Last Done: 02/15/24 14:07
*Nursing Disposition Last Done: 02/15/24 16:18
ED-Musculoskeletal Assessment Last Done: 02/15/24 13:51
ED- Neurological Assessment Last Done: 02/15/24 13:51
ED-Skin Assessment Last Done: 02/15/24 13:51
Discharge Date and Time
Discharge Date/Time: 02/15/24 16:19
Print Language: VINCENTIAN
[2024-02-15 13:51] VITALS: BMI 24.4
[2024-02-15] MEDS: NSS 500 IV (14:06)
[2024-02-15 14:08] LABS: % Basophils 0.5 % (0-2); % Immature Granulocytes 0.4 % (0-0.5); % Lymphocytes 12.7 % (20.5-51.1); % Monocytes 7.7 % (1.7-9.3); % Neutrophils 76.7 % (42.2-75.2); Absolute Basophils 0.1 10^3/uL (0-0.2); Absolute Eosinophils 0.2 10^3/uL (0-0.7); Absolute Lymphocytes 1.2 10^3/uL (1.2-3.4); Absolute Monocytes 0.7 10^3/uL (0.1-0.6); Absolute Neutrophils 7.2 10^3/uL (1.4-6.5); Hematocrit 42.8 % (39.0-52.0); Hemoglobin 14.7 g/dL (13.0-18.0); Mean Corp Hgb Conc. 34.3 g/dL (33.0-37.0); Mean Corpuscular Hgb 32.7 pg (27.0-31.0); Mean Corpuscular Volume 95.1 fL (80.0-94.0); Mean Platelet Volume 10.5 fL (7.4-10.4); Nucleated Red Blood Cells % 0 % (-); Platelet Count 133 10^3/uL (130-400); Red Cell Dist. Width 14.9 % (11.5-14.5); White Blood Cell Count 9.4 10^3/uL (4.8-10.8)
[2024-02-15 14:15] LABS: Urine Albumin Negative (Neg - Trace); Urine Bilirubin Negative (Negative); Urine Character Slightly Cloudy (Clear); Urine Color Yellow; Urine Glucose Negative (Negative); Urine Ketone 1+ (Negative); Urine Leukocyte 2+ (Negative); Urine Nitrite Negative (Negative); Urine Occult Blood Trace (Negative); Urine Urobilinogen Negative (Neg - 1+)
[2024-02-15 14:29] LABS: Blood Urea Nitrogen 19 mg/dl (9-20); Calcium 9.5 mg/dl (8.4-10.2); Carbon Dioxide 26 mmol/L (22-30); Chloride 104 mmol/L (98-107); Estimated Creatinine Clearance 61 ml/min; Glucose 102 mg/dl (70-99); Sodium 141 mmol/L (135-145); eGFR > 60.00
[2024-02-15 14:48] LABS: Urine Red Blood Cell 0-2 /HPF (0-2)
[2024-02-15 14:49] LABS: Urine Bacteria Few (Negative); Urine White Cell 90-100 /HPF (0-5)
[2024-02-15 15:50] VITALS: BP 119/61
[2024-02-15] MEDS: ROCEPHIN 1000 MG IV (15:59)
[2024-02-15 16:00] VITALS: BP 125/54
== END 2024-02-15 16:19 | disposition home or self-care (01) ==
LOC: EMR 13:23
PROVIDERS: Registered Nurse; EMERGENCY PHYSICIAN Student in an Organized Health Care Education/Training Program; FAMILY PHYSICIAN Internal Medicine Geriatric Medicine
DX: N39.0 Urinary tract infection, site not specified (principal); W06.XXXA Fall from bed, initial encounter; I10 Essential (primary) hypertension; E78.00 Pure hypercholesterolemia, unspecified; G30.9 Alzheimer's disease, unspecified; F02.80 Dementia in other diseases classified elsewhere, unspecified severity, without behavioral disturbance, psychotic disturbance, mood disturbance, and anxiety; G89.29 Other chronic pain; M25.561 Pain in right knee; Z79.02 Long term (current) use of antithrombotics/antiplatelets; Z86.73 Personal history of transient ischemic attack (TIA), and cerebral infarction without residual deficits; Z86.79 Personal history of other diseases of the circulatory system; Z87.891 Personal history of nicotine dependence
CPT/HCPCS: 99283; 96374; 96361; 73502; 73564; 80048; 81003; 81015; 85025; 87077; 87086; 87186

== ENCOUNTER 2024-04-07 10:43 | Day surgery (SDC) | payer OTHER, SELFPAY ==
--- NOTE | 2024-04-07 13:18 | ITS.CL.IMPLP ---
Landscape Account Manager - Implant Loop
Implant Loop
Procedure Report:
Date of Procedure: 04/07/24
Primary Care Provider: Morgan Lerma M.D.
Procedure: Insertable Loop Recorder Implantation
Indication:
Cryptogenic CVA
Procedure:
The patient was brought to the procedure area in a fasting state. The anterior chest was prepped and draped in standard sterile fashion. The fourth intercostal space along the left sternal border was identified and this area was anesthetized with 10
mL of 1% lidocaine. After gathering the skin in this area, a small punch incision was made at approx intercostal space 4-5 at left costo-sternal junction using the provided scalpel/punch tool. The loop recorder was loaded into the tunneling device.
A tunnel was created in the subcutaneous tissue at a 45� angle along the coronal plane away from the sternum and towards the left flank. The tunneling device was inverted and the plunger was depressed, inserting the loop recorder into the
subcutaneous space. The tunneling device was removed. Manual pressure provide hemostasis. Adequate signal was confirmed. The skin was closed with steri-strips. The estimated blood loss was < 1 cc. A clean dressing was placed over the wound.
There were no complications.
Implant:
[employer] Reveal LINQ II
Conclusion: Uncomplicated implantation of loop recorder.
Recommendation: Routine ILR care.
Copy:
Morgan Lerma M.D.
== END 2024-04-07 13:35 | disposition home or self-care (01) ==
LOC: CATH 10:43
PROVIDERS: ATTENDING PHYSICIAN Internal Medicine Cardiovascular Disease; FAMILY PHYSICIAN Internal Medicine Geriatric Medicine
DX: Z09 Encounter for follow-up examination after completed treatment for conditions other than malignant neoplasm (principal); Z86.73 Personal history of transient ischemic attack (TIA), and cerebral infarction without residual deficits; J84.9 Interstitial pulmonary disease, unspecified; G31.84 Mild cognitive impairment of uncertain or unknown etiology; E78.5 Hyperlipidemia, unspecified; I10 Essential (primary) hypertension; Z91.81 History of falling
CPT/HCPCS: 33285; C1764

== ENCOUNTER 2024-12-12 00:20 | Inpatient (IN) | payer OTHER, SELFPAY ==
[2024-12-11 18:49] VITALS: BP 121/59
[2024-12-11 19:18] LABS: % Basophils 0.5 % (0-2); % Immature Granulocytes 0.5 % (0-0.5); % Lymphocytes 12.2 % (20.5-51.1); % Monocytes 8.1 % (1.7-9.3); % Neutrophils 77.7 % (42.2-75.2); Absolute Eosinophils 0.1 10^3/uL (0-0.7); Absolute Lymphocytes 1.1 10^3/uL (1.2-3.4); Absolute Monocytes 0.7 10^3/uL (0.1-0.6); Absolute Neutrophils 6.8 10^3/uL (1.4-6.5); Hematocrit 41.7 % (39.0-52.0); Hemoglobin 14.5 g/dL (13.0-18.0); Mean Corp Hgb Conc. 34.8 g/dL (33.0-37.0); Mean Corpuscular Hgb 33.4 pg (27.0-31.0); Mean Corpuscular Volume 96.1 fL (80.0-94.0); Mean Platelet Volume 10.3 fL (7.4-10.4); Nucleated Red Blood Cells % 0 % (-); Platelet Count 121 10^3/uL (130-400); Red Blood Cell Count 4.34 10^6/uL (4.70-6.10); Red Cell Dist. Width 14.2 % (11.5-14.5); White Blood Cell Count 8.8 10^3/uL (4.8-10.8)
[2024-12-11 19:24] LABS: ALT (SGPT) 17 U/L (0-50); AST (SGOT) 22 U/L (17-59); Albumin 4.4 g/dl (3.5-5.0); Alkaline Phosphatase 79 U/L (38-126); Blood Urea Nitrogen 21 mg/dl (9-20); Calcium 9.5 mg/dl (8.4-10.2); Carbon Dioxide 24 mmol/L (22-30); Chloride 110 mmol/L (98-107); Glucose 135 mg/dl (70-99); Potassium 4.2 mmol/L (3.5-5.1); Sodium 143 mmol/L (135-145); Total Bilirubin 1.2 mg/dl (0.2-1.3); Total Protein 7.1 g/dl (6.3-8.2); eGFR > 60.00
[2024-12-11 20:55] VITALS: BP 116/47
[2024-12-11 21:26] LABS: Urine Albumin 2+ (Neg - Trace); Urine Bilirubin Negative (Negative); Urine Character Clear (Clear); Urine Color Yellow; Urine Glucose Negative (Negative); Urine Ketone Negative (Negative); Urine Leukocyte 3+ (Negative); Urine Nitrite Positive (Negative); Urine Occult Blood 3+ (Negative); Urine Urobilinogen Negative (Neg - 1+)
[2024-12-11 21:26] LABS: Creatine Phosphokinase 62 U/L (55-170)
[2024-12-11 21:33] LABS: Urine Squamous Cell 0-2 /LPF (Few)
[2024-12-11 21:34] LABS: Urine Bacteria Moderate (Negative); Urine White Cell 30-40 /HPF (0-5)
[2024-12-11 22:00] VITALS: BP 122/50
[2024-12-11] MEDS: ROCEPHIN 2000 MG IV (22:21)
[2024-12-11 22:34] VITALS: BMI 23.1
--- NOTE | 2024-12-11 22:39 | ED.CVA ---
History of Present Illness
General
Chief Complaint: CVA/TIA Symptoms
Source: patient and family
Exam Limitations: dementia
Onset of Stroke Symptoms
Onset of symptoms known: No
Time pt last seen normal is known: Yes
Date last time pt seen normal: 12/10/24
History of Present Illness
History of Present Illness:
84-year-old male with a history of stroke, dementia. Patient lives in independent living and [facility]. [id number] states that she typically sees him Tuesdays and . She spoke with him yesterday early afternoon he seemed okay.
He typically does sleep in late. Tonight she called him and he had not answered the phone. She called several times. She then came to the house and he was still in bed. He was soiled and she felt that his speech was slurred. Son states that he
was profoundly weak. They still feel like his speech is little bit slurred but did not see any focal weakness. He denies any facial droop. In fact they did note that he was moving all extremities equally. the patient denies any complaints
Past History
Past History
ED Past Medical History: CVA (CVA 6), HTN, Hypercholesterolemia, Psychiatric (Early Alzheimer's) and Other (Dementia, interstitial lung disease, abdominal aortic, BPH)
ED Past Surgical History: Orthopedic and Other (Aneurysm repair, hernia repair)
Social History
Tobacco: Former smoker
Alcohol: None
Personal:
Living: assisted living
Phy Exam
Physical Exam
Physical Exam:
CONSTITUTIONAL Patient alert and oriented to person, place. Well-appearing. Vital signs reviewed.
HEAD atraumatic, normocephalic.
EYES eyelids normal to inspection, Extraocular muscles intact, Conjunctiva normal, Sclera normal.
NECK normal range of motion, Trachea midline, no jugular venous distention.
RESPIRATORY CHEST No respiratory distress noted, Chest expansion equal, Bilateral breath sounds clear.
CARDIOVASCULAR regular rate and rhythm, Heart sounds normal.
ABDOMEN abdomen nontender, Bowel sounds normal. No distention.
BACK normal inspection, no obvious deformities
UPPER EXTREMITY range of motion normal, Motor strength normal, no cyanosis, no edema.
LOWER EXTREMITY range of motion normal, Motor strength normal, no cyanosis, no edema.
NEURO speech sounds normal to me. Family concerned that there may be a little bit of slurring. No focal motor deficits,\\Cranial Nerves intact to screening exam. Normal [id number]. No pronator drift
SKIN skin warm, dry, and normal in color.
Course
Orders/Labs/Results
Orders:
Orders
12/11/24 18:56
Electrocardiogram (*1) Urgent
Reason for Study: TIA/Stroke
12/11/24 18:57
CT Head & Neck Angio W/wo IV Urgent
Reason For Exam: slurred speech
EKG- Treatment ONCE
12/11/24 19:04
CMP [Comprehensive Metabolic Panel] Urgent
Complete Blood Count/With Diff Urgent
Creatine Phosphokinase Urgent
12/11/24 20:55
Add On- LAB Urgent
Tests Added?: cpk
12/11/24 21:19
Urinalysis Reflex To Culture Urgent
Date Specimen was Collected: 12/11/24
Time Specimen was Collected: 21:18
Urine Microscopic Reflex Cult Urgent
Urine Culture Urgent
REAL Source: U
Specimen Description:
Date Specimen was Collected: 12/11/24
Time Specimen was Collected: 21:18
12/11/24 21:47
CefTRIAXone [Rocephin] 2,000 mg IV NOW STA
12/11/24 22:16
Sterile Water [Sterile Water For Injection] 10 ml .ROUTE .ST-MED ONE
Abnormal Lab Results
12/11/24 12/11/24
19:04 21:19
RBC 4.34 L 10^6/uL
(4.70-6.10)
MCV 96.1 H fL
(80.0-94.0)
MCH 33.4 H pg
(27.0-31.0)
Plt Count 121 L 10^3/uL
(130-400)
Absolute Neuts (auto) 6.8 H 10^3/uL
(1.4-6.5)
Absolute Lymphs (auto) 1.1 L 10^3/uL
(1.2-3.4)
Absolute Monos (auto) 0.7 H 10^3/uL
(0.1-0.6)
Neutrophils % 77.7 H %
(42.2-75.2)
Lymphocytes % 12.2 L %
(20.5-51.1)
Chloride 110 H mmol/L
(98-107)
BUN 21 H mg/dl
(9-20)
Glucose 135 H mg/dl
(70-99)
Ur Occult Blood Reflex 3+ A
(Negative)
Urine Nitrite (Reflex) Positive A
(Negative)
Leukocyte Esterase Rfl 3+ A
(Negative)
Urine RBC 3-6 A /HPF
(0-2)
Urine WBC (Reflex) 30-40 A /HPF
(0-5)
Urine Bacteria (Reflex) Moderate A
(Negative)
Urine Albumin (Reflex) 2+ A
(Neg - Trace)
12/11/24 19:04
12/11/24 19:04
Vital Signs
Initial and Last Documented VS:
Initial Vital Signs
Temp Pulse Resp BP Pulse Ox
98.1 F 84 16 121/59 97
12/11/24 18:49 12/11/24 18:49 12/11/24 18:49 12/11/24 18:49 12/11/24 18:49
Last Documented Vital Signs
Temp Pulse Resp BP Pulse Ox
98.1 F 59 13 122/50 94
12/11/24 18:49 12/11/24 22:15 12/11/24 22:15 12/11/24 22:00 12/11/24 22:15
MDM/Problems Addressed
Differential Diagnosis Includes:
CVA, TIA, electrolyte disturbance, metabolic cephalopathy, infection, UTI
MDM/Problems Addressed:
Urinary tract infection, possible TIA
*Radiology
Radiology exam reviewed: radiology read reviewed
*Pulse Oximetry
Patient hypoxic: no
*Roll Panner Interpretation
Rate: normal
Interpretation: normal
Rhythm: sinus
*Critical Care Note
Total Time (30-74mins, 75-104mins- exclusive of procedures): Not Applicable
Data Reviewed
Review of Other/Old Records Reveals: Discharge Summary (Discharge summary reviewed from January 2024 revealing that the patient had a CVA)
Source: patient and family
Further Testing Considered But Not Given:
TNK but symptoms appear to be mostly resolved and suspect much of it due to UTI
Patient Management
Discussion with other providers: Hospitalist
Escalation/DeEscalation of care consider admission/obs:
84-year-old male with history of stroke. Here appears well. No focal deficits. Labs reviewed and suspect UTI as etiology of his change. BP stable. Afebrile
ED Attending Note
-
Portions of this chart may have been created with voice recognition software.� Occasional wrong word or��sound alike� substitutions may have occurred due to the inherent limitations of voice recognition software.
Discharge Plan
Departure
Patient Disposition: Admit
Date of Disposition: 12/11/24
Time of Disposition: 22:41
Admit to: Telemetry
Presentation/result/management discussed w/ accepting MD/DO: Hospitalist
Discharge Problem:
Acute alteration in mental status, Urinary tract infection
Prescriptions:
No Action
atorvastatin 40 mg Tablet
40 mg PO DAILY@1999
aspirin 81 mg Tablet,Delayed Release (Dr/Ec)
81 mg PO DAILY
acetaminophen 500 mg Tablet
1,000 mg PO TID@0800,1400,2000
clopidogrel 75 mg Tablet
75 mg PO DAILY Qty: 0 0RF
diclofenac sodium 1 % Gel
1 g TOPICAL QID Qty: 0 0RF
miconazole nitrate [Miconazorb AF] 2 % Powder
1 applic topical BID Qty: 85 0RF
Referrals:
Morgan Lerma MD [Family Provider] -
Interventions
Interventions:
*Risk Screen - Suicide Last Done: 12/11/24 18:49
*General Assessment Last Done: 12/11/24 22:35
*Neglect/Abuse Screening Last Done: 12/11/24 22:35
*ED COVID-19 Vaccine History Last Done: 12/11/24 22:35
ED- Pulmonary Assessment Last Done: 12/11/24 22:30
ED- Neurological Assessment Last Done: 12/11/24 22:30
ED- Cardiac Assessment Last Done: 12/11/24 22:30
ED Swallowing Screen Last Done: 12/11/24 22:30
Discharge Date and Time
Print Language: KYRGYZ
[2024-12-11 23:00] VITALS: BP 145/74
--- NOTE | 2024-12-11 23:17 | HPS.HSE ---
Family Physician
-
Family Physician: Morgan Lerma
Chief Complaint
-
slurred speech
History of Present Illness
84-year-old male past medical history of CVA, Alzheimer's dementia, hypertension, hypercholesteremia, interstitial lung disease, abdominal aortic aneurysm status post repair, ascending aorta aneurysm, BPH, presenting from [facility] for slurred
speech and weakness. Sofnmuaz-dn-uye spoke with him earlier yesterday afternoon and he seemed normal. Today she called him and he did not answer the phone. Called several times. She then came to the house and he was still in bed. He was soiled
in stool and urine and she felt his speech was slurred. She also felt he had a facial droop. Son states that he was profoundly weak. They still feel that his speech is a bit slurred but they did not note any focal weakness. He was moving all
extremities equally. No urinary symptoms or nausea vomiting or abdominal pain.
Patient normally has urinary incontinence due to immobility and not being able to get to the bathroom.
He is a former smoker.
Medical History
Past Medical History
Past Medical History: Reports Other (CVA, Alzheimer's dementia, hypertension, hypercholesteremia, interstitial lung disease, abdominal aortic aneurysm status post repair, ascending aorta aneurysm, BPH)
Past Surgical History: Reports None
Social History
Tobacco: Non-smoker
Alcohol: None
Drug: None
Family History
Family History: Not pertinent
Allergies / Home Medications
Allergies reflects when Allergies were last updated in [employer].
Home Medications with original date entered in [employer]
Allergy/Medication List:
Allergies
Allergy/AdvReac Type Severity Reaction Status Date / Time
No Known Allergies Allergy Verified 04/07/24 11:21
Home Medications
acetaminophen 500 mg tablet 1,000 mg PO TID@0800,1400,2000 01/24/24
aspirin 81 mg tablet,delayed release 81 mg PO DAILY 01/24/24
atorvastatin 40 mg tablet 40 mg PO DAILY@199901/24/24
clopidogrel 75 mg tablet 75 mg PO DAILY #0 tabs 01/29/24
diclofenac sodium 1 % topical gel 1 g topical QID mild pain #0 grams 01/29/24
miconazole nitrate 2 % topical powder (Miconazorb AF) 1 applic topical BID #85 grams 01/30/24
Review of Systems
-
History Source: Patient
A 12 point ROS was completed and negative except as noted: Yes
Constitutional: Reports No Symptoms
EENT: Reports No Symptoms
Respiratory: Reports No Symptoms
Cardiac: Reports No Symptoms
Abdomen/GI: Reports No Symptoms
: Reports No Symptoms and See HPI
Musculoskeletal: Reports No Symptoms
Skin: Reports No Symptoms
Neurological: Reports See HPI
Endocrine: Reports No Symptoms
Hematologic/Lymphatic: Reports No Symptoms
Psych: Reports No Symptoms
Physical Exam
Vital Signs
Vital Signs
Temp Pulse Resp BP Pulse Ox
98.1 F 59 13 122/50 94
12/11/24 18:49 12/11/24 22:15 12/11/24 22:15 12/11/24 22:00 12/11/24 22:15
Physical Exam
General: Well Developed, Well Nourished and No Apparent Distress
HEENT: NormoCephalic, Moist mucous membranes and Atraumatic
Respiratory: Clear
Cardiac: S1/S2 and Regular Rhythm; No Murmur or Rub
GI: Soft, Non Tender, Non Distended and Normal Bowel Sounds; No Organomegaly
Rectal: Deferred by Provider
Musculoskeletal: No Clubbing, No Cyanosis and No Edema
Skin: No Rash
Neuro: Nonfocal/grossly intact
Laboratory Results
-
12/11/24 19:04
12/11/24 19:04
Laboratory Results
Total Bilirubin 1.2 mg/dl (0.2-1.3) 12/11/24 19:04
AST 22 U/L (17-59) 12/11/24 19:04
ALT 17 U/L (0-50) 12/11/24 19:04
Alkaline Phosphatase 79 U/L (38-126) 12/11/24 19:04
Data Reviewed
-
Lab Data: Labs Reviewed by me
Old Records: Reviewed
Impression/Plan
-
IMPRESSION:
PLAN:
# Acute metabolic encephalopathy likely secondary to UTI versus less likely CVA or seizure
-Symptoms improving after receiving antibiotic
-On examination slight slurring of speech but normal mental status and no neurological deficits
- Due to slurred speech CTA head and neck was performed which showed small chronic white matter lacunar infarcts, stable changes of old remote posterior right temporal infarct,
- Urinalysis suggestive of UTI although he has had asymptomatic bacteriuria previously
- Urine culture
- Ceftriaxone
- Consider MRI brain and neurology if persistent symptoms tomorrow although patient already on aspirin, Plavix and statin
- Telemetry monitoring
History of CVA with Linq monitor
- Continue aspirin, Plavix,, statin,
Alzheimer's dementia
Essential hypertension
Hypercholesteremia
Interstitial lung disease
Ascending aortic aneurysm
- Currently being observed as patient not a candidate for surgery
Abdominal aortic aneurysm status post repair
BPH
DNR/DNI
DVT prophylaxis�SCDs
Regular diet
[2024-12-12] VITALS (9 sets, daily range): BP systolic 117–151; BP diastolic 50–103; PULSE 85; BMI 23.0; BMI 22.9
--- NOTE | 2024-12-12 02:29 | PTCARENOTE ---
Pt arrived to floor via stretcher from the ED. Pt AAOx2- Forgetful to time. Pleasantly confused at baseline. Follows all commands, moves all extremities. NIH assessed 1 at this time due to orientation questions, wrong month and wrong year. No
slurred speech noted. HR in the 50's in SB on the monitor. POX 97% on RA. Lungs clear. INC of bowel and bladder, suzie care provided. Palpable peripheral pulses present. knee high seq now in place. Right AC int capped. Call ch in reach. Bed alarm
for pt safety. Will continue to monitor.
[2024-12-12 06:17] LABS: % Basophils 0.3 % (0-2); % Eosinophils 2.3 % (0-6); % Immature Granulocytes 0.4 % (0-0.5); % Lymphocytes 19.4 % (20.5-51.1); % Monocytes 10.2 % (1.7-9.3); % Neutrophils 67.4 % (42.2-75.2); Absolute Eosinophils 0.2 10^3/uL (0-0.7); Absolute Lymphocytes 1.4 10^3/uL (1.2-3.4); Absolute Monocytes 0.7 10^3/uL (0.1-0.6); Absolute Neutrophils 4.9 10^3/uL (1.4-6.5); Hematocrit 40.1 % (39.0-52.0); Hemoglobin 13.5 g/dL (13.0-18.0); Mean Corp Hgb Conc. 33.7 g/dL (33.0-37.0); Mean Corpuscular Hgb 33.2 pg (27.0-31.0); Mean Corpuscular Volume 98.5 fL (80.0-94.0); Mean Platelet Volume 10.7 fL (7.4-10.4); Nucleated Red Blood Cells % 0 % (-); Platelet Count 113 10^3/uL (130-400); Red Blood Cell Count 4.07 10^6/uL (4.70-6.10); Red Cell Dist. Width 14.4 % (11.5-14.5); White Blood Cell Count 7.3 10^3/uL (4.8-10.8)
[2024-12-12 06:46] LABS: ALT (SGPT) 14 U/L (0-50); AST (SGOT) 19 U/L (17-59); Albumin 3.6 g/dl (3.5-5.0); Alkaline Phosphatase 72 U/L (38-126); Blood Urea Nitrogen 18 mg/dl (9-20); Calcium 9.2 mg/dl (8.4-10.2); Carbon Dioxide 27 mmol/L (22-30); Chloride 110 mmol/L (98-107); Estimated Creatinine Clearance 55 ml/min; Glucose 90 mg/dl (70-99); Potassium 3.9 mmol/L (3.5-5.1); Sodium 144 mmol/L (135-145); Total Bilirubin 0.9 mg/dl (0.2-1.3); Total Protein 6.2 g/dl (6.3-8.2); eGFR > 60.00
[2024-12-12] MEDS: TYLENOL 1000 MG PO (08:30)
[2024-12-12] MEDS: ASPIR LOW (ENTERIC COATED) 81 MG PO (08:30)
[2024-12-12] MEDS: PLAVIX 75 MG PO (08:30)
--- NOTE | 2024-12-12 12:35 | W.PN.HOSP.TC ---
Addendum entered and electronically signed by Garrett Gaines DO 12/12/24 15:21:
Spoke with patient's at the bedside. States she still notices some slurred speech, confusion that is not at his baseline. Will check MRI brain to rule out CVA considering his extensive history. Consider neurology consult and further workup
pending results of MRI. Continue neurochecks for now
Original Note:
Today's Communication/Plan
-
Continue IV ceftriaxone
Follow urine culture
Speech and swallow eval
No need for MRI
Assessment / Plan
Assessment / Plan
#Acute metabolic encephalopathy
#Urinary tract infection
-Initial concern for possible CVA like symptoms, however slurred speech quickly resolved, no other FND
-CT head unremarkable, CTA head and neck with chronic lacunar infarcts, no acute findings
-Urinalysis with pyuria, leukocyte esterase and nitrite positivity, moderate bacteria
-Urine culture was obtained, was started on IV ceftriaxone empirically with noticeable improvement
-Defer against further workup for CVA as suspicion is very low at this time
-Continue IV ceftriaxone, follow urine culture
-Monitor MSE
#H/O CVA
#Dementia
#Linq device in place
-Multiple lacunar infarcts, previous right temporal infarct seen on CTA
-Has known diagnosis of Alzheimer's, though question vascular dementia
-Currently with Linq device, apparent concern for underlying AF/AFL
-Home regimen includes DAPT and high intensity statin
-Will monitor clinically, low suspicion for active ischemia
#Primary hypertension
-Home regimen does not include any first-line antihypertensive agents
-Has history of lacunar infarcts which likely related to chronic hypertension
-Blood pressure here well-controlled
#Dyslipidemia
-Has ASCVD history with TAA, previous CVAs
-Home medications include high intensity
#Thoracic aortic aneurysm
#AAA s/p EVAR
-Likely related to history of hypertension and dyslipidemia
-Not on first-line antihypertensive agent, is on high intensity statin
-Will need follow-up echocardiogram for TAA as an OP
#Interstitial lung
-Per history, does not utilize supplemental oxygen at baseline
-No recent PFTs, does not appear to be on any medications
-Currently stable on room air
#BPH
-Not currently on any medication
-Will monitor for signs of outlet obstruction
Diet: Regular, LINUX NETWORK ENGINEER consult
DVT prophylaxis: SCDs
CODE STATUS: DNR
Anticipated Discharge: > 48 hours
Subjective/Interval History
-
Date of Service: December 12, 2024
Seen and examined at the bedside. No acute events reported overnight. AFVSS this morning
No leukocytosis on labs. No fevers overnight. No focal deficits on exam, slurred speech improved
ROS limited by his baseline dementia
Objective Data
-
Labs:
Laboratory Results
12/12/24
05:53
WBC 7.3
Hgb 13.5
Hct 40.1
Plt Count 113 L
Sodium 144
Potassium 3.9
Chloride 110 H
Carbon Dioxide 27
BUN 18
Creatinine 0.9
Glucose 90
Calcium 9.2
Total Bilirubin 0.9
AST 19
ALT 14
Alkaline Phosphatase 72
Vital Signs:
Vital Signs
Temp Pulse Resp BP Pulse Ox
97.4 F 63 18 127/54 94
12/12/24 08:00 12/12/24 08:00 12/12/24 08:00 12/12/24 08:00 12/12/24 08:00
I&O
12/11/24 12/12/24 12/13/24
06:59 06:59 06:59
Intake Total 120 / 120
Balance 120 / 120
Review of Systems
-
Unable to obtain full review of systems at this time due to: Dementia
Physical Exam
-
General: Well Developed, Well Nourished, No Apparent Distress and Comfortable
HEENT: Normocephalic, Atraumatic, Moist Mucous Membranes and Anicteric
Respiratory: Clear to Auscultation and Non Labored Respirations; Negative Accessory Resp Muscle Use
Cardiac: Regular Rhythm and S1/S2; Negative Murmur, Rub or Gallop
GI: Soft, Nontender, Nondistended and Normal Bowel Sounds
Musculoskeletal: No Clubbing, No Cyanosis and No Edema
Skin: Warm and Dry; Negative Rash
Neuro: Awake, Alert, Oriented, Nonfocal/Grossly Intact and Central Nerve's Intact; Negative Slurred Speech
Psych: Calm
Data Reviewed
-
Labs: Labs Reviewed by me and Discussed with Patient
[2024-12-12] MEDS: TYLENOL PO ×3 (13:16→22:49)
--- NOTE | 2024-12-12 16:14 | PTOTSP ---
Speech Language Pathology:
Initial speech therapy assessment completed. Patient observed with functional oropharyngeal swallow at bedside. Cough x1 with consecutive thin sips and slow/functional mastication of solids with trace-mild oral residue. Patient with benefit from
single sips of thins via cup or straw and use of liquid wash following solid trials.
Speech intelligible at the conversational level with minimal dysarthria characterized by slightly reduced articulatory precision and rate. Patient with baseline history of mild cognitive impairments and known to ST at with aphasia noted during
01/2024 admission.
Recommend:
1) Diet: Regular solid, thin liquid diet
2) Compensations: Supervision, upright to 90 degrees, small single sips/bites, liquid wash as needed to clear oral cavity, oral care
3) ST to f/u to ensure diet tolerance and for further speech/language assessment as indicated. Discussed recommendations with RN.
[2024-12-12] MEDS: LIPITOR 40 MG PO (21:29)
[2024-12-12] MEDS: STERILE WATER FOR INJECTION 10 ML IV (21:29)
[2024-12-12] MEDS: ROCEPHIN 1000 MG IV (21:30)
[2024-12-13 07:00] VITALS: BP 110/50
[2024-12-13] MEDS: TYLENOL 1000 MG PO ×3 (08:39→19:44)
[2024-12-13] MEDS: ASPIR LOW (ENTERIC COATED) 81 MG PO (08:39)
[2024-12-13] MEDS: PLAVIX 75 MG PO (08:39)
[2024-12-13 11:15] LABS: % Basophils 0.7 % (0-2); % Eosinophils 4.2 % (0-6); % Immature Granulocytes 0.1 % (0-0.5); % Lymphocytes 24.3 % (20.5-51.1); % Monocytes 10.3 % (1.7-9.3); % Neutrophils 60.4 % (42.2-75.2); Absolute Basophils 0.1 10^3/uL (0-0.2); Absolute Eosinophils 0.3 10^3/uL (0-0.7); Absolute Lymphocytes 1.6 10^3/uL (1.2-3.4); Absolute Monocytes 0.7 10^3/uL (0.1-0.6); Absolute Neutrophils 4.1 10^3/uL (1.4-6.5); Hematocrit 38.2 % (39.0-52.0); Mean Corpuscular Hgb 33.4 pg (27.0-31.0); Mean Corpuscular Volume 98.2 fL (80.0-94.0); Mean Platelet Volume 11.6 fL (7.4-10.4); Nucleated Red Blood Cells % 0 % (-); Platelet Count 113 10^3/uL (130-400); Red Blood Cell Count 3.89 10^6/uL (4.70-6.10); Red Cell Dist. Width 14.6 % (11.5-14.5); White Blood Cell Count 6.7 10^3/uL (4.8-10.8)
[2024-12-13 11:26] LABS: Blood Urea Nitrogen 21 mg/dl (9-20); Calcium 8.9 mg/dl (8.4-10.2); Carbon Dioxide 26 mmol/L (22-30); Chloride 109 mmol/L (98-107); Estimated Creatinine Clearance 50 ml/min; Glucose 95 mg/dl (70-99); Potassium 3.9 mmol/L (3.5-5.1); Sodium 143 mmol/L (135-145); eGFR > 60.00
--- NOTE | 2024-12-13 14:18 | W.PN.HOSP.TC ---
Today's Communication/Plan
-
Transition Plavix to Brilinta
Plan DAPT for 90 days
Continue with statin and check FLP
Neurochecks
Continue IV ceftriaxone for now
Assessment / Plan
Assessment / Plan
#Acute CVA
#Dementia
#Linq device in place
-Presented with slurred speech and possible mild RUE weakness; MRI w/ small evolving acute infarct of left rodrigez radiata
-Not candidate for TNK or thrombectomy; outside of window for permissive hypertension; was started on ASA
-Had multiple lacunar infarcts, right temporal infarct on CTA; Home meds include Plavix and statin
-Currently with Linq device, apparent concern for underlying AF/AFL though not picked up on telemetry here
-NIHSS score 0-1; speech may be mildly slurred though seems improved, some ataxia of (R) hand
-Discussed with neuro who recommended transitioning to Brilinta
Plan
-Continue with DAPT (ASA + Brillinta) and high intensity statin for now
-Plan to discontinue Brilinta after 90 days and proceed with MAPT
-Will speak with cardiology about interrogating Linq
-Consider echocardiogram
-Check lipid panel
-Monitor neurochecks
-Consult neuro
#Urinary tract infection
-Initial concern for possible CVA like symptoms, however slurred speech quickly resolved, no other FND
-Urinalysis with pyuria, leukocyte esterase and nitrite positivity, moderate bacteria; started on IV CTX
-Urine culture with preliminary positive result for E. coli, sensitivities pending
-Continue IV ceftriaxone, follow urine culture, trend CBC and temperature
#Primary hypertension
-Home regimen does not include any first-line antihypertensive agents
-Has history of lacunar infarcts which likely related to chronic hypertension
-Blood pressure here well-controlled
#Dyslipidemia
-Has ASCVD history with TAA, previous CVAs
-Home medications include high intensity
#Thoracic aortic aneurysm
#AAA s/p EVAR
-Likely related to history of hypertension and dyslipidemia
-Not on first-line antihypertensive agent, is on high intensity statin
-Will need follow-up echocardiogram for TAA as an OP
#Interstitial lung
-Per history, does not utilize supplemental oxygen at baseline
-No recent PFTs, does not appear to be on any medications
-Currently stable on room air
#BPH
-Not currently on any medication
-Will monitor for signs of outlet obstruction
Diet: Regular, RELIEF MAP MODELER consult
DVT prophylaxis: SCDs
CODE STATUS: DNR
Anticipated Discharge: 24 - 48 hours
Subjective/Interval History
-
Date of Service: December 13, 2024
Seen and examined at the bedside. No acute events reported overnight. AFVSS this morning
MRI did return positive with a small evolving acute infarct in the left rodrigez radiata. No new focal deficits observed today. Labs stable
No new complaints, ROS limited by dementia
Objective Data
-
Labs:
Laboratory Results
12/13/24
09:52
WBC 6.7
Hgb 13.0
Hct 38.2 L
Plt Count 113 L
Sodium 143
Potassium 3.9
Chloride 109 H
Carbon Dioxide 26
BUN 21 H
Creatinine 1.0
Glucose 95
Calcium 8.9
Vital Signs:
Vital Signs
Temp Pulse Resp BP Pulse Ox
98.2 F 55 16 110/50 92
12/13/24 07:00 12/13/24 07:00 12/13/24 07:00 12/13/24 07:00 12/13/24 07:00
I&O
12/12/24 12/13/24 12/14/24
06:59 06:59 06:59
Intake Total 120 / 120 600 / 600
Balance 120 / 120 600 / 600
Review of Systems
-
History Source: Patient
All other systems: Reviewed and negative
Physical Exam
-
General: Well Developed, Well Nourished, No Apparent Distress and Comfortable
HEENT: Normocephalic, Atraumatic, Moist Mucous Membranes, Anicteric and PERRLA
Respiratory: Clear to Auscultation and Non Labored Respirations
Cardiac: Regular Rhythm and S1/S2; Negative Murmur, Rub, JVD or Gallop
GI: Soft, Nontender, Nondistended and Normal Bowel Sounds
Musculoskeletal: No Clubbing, No Cyanosis and No Edema
Skin: Warm and Dry; Negative Rash
Neuro: Awake, Alert, Oriented, Central Nerve's Intact, Slurred Speech and Other (4+/5 MMS to RUE; otherwise normal without sensory deficit or facial droop)
Psych: Calm
Data Reviewed
-
MRI: Report Reviewed by me and Discussed with Physician (Neurology)
Labs: Labs Reviewed by me, Discussed with Patient and Discussed with Family
[2024-12-13 15:00] VITALS: BP 117/45
--- NOTE | 2024-12-13 15:00 | CM ---
Patient seen at bedside with son Cedrick & COLLIN Hoover
IA completed
Resides at [facility] [place], no steps
PLOF: independent uses rollator
DME: Rollator, shower chair, bed rails, handles on toilet
Has had [facility] & [facility] in past
PT/OT to eval
family interested in other SNF's other than [facility]
Options given
Spoke with Nyasia from [facility]
PCP: Morgan Lerma
[facility]
PLAN: Await PT/OT andressa, CM to follow for needs
[2024-12-13] MEDS: BRILINTA 90 MG PO (19:44)
[2024-12-13] MEDS: LIPITOR 40 MG PO (19:44)
[2024-12-13] MEDS: STERILE WATER FOR INJECTION 10 ML IV (21:16)
[2024-12-13] MEDS: ROCEPHIN 1000 MG IV (21:16)
[2024-12-13 23:00] VITALS: BP 112/50
[2024-12-14 07:40] VITALS: BP 135/51
[2024-12-14] MEDS: ASPIR LOW (ENTERIC COATED) 81 MG PO (07:41)
[2024-12-14] MEDS: TYLENOL 1000 MG PO ×3 (07:41→20:59)
[2024-12-14] MEDS: BRILINTA 90 MG PO ×2 (07:42→20:59)
[2024-12-14 08:33] LABS: % Basophils 0.8 % (0-2); % Eosinophils 6.9 % (0-6); % Immature Granulocytes 0.5 % (0-0.5); % Lymphocytes 22.3 % (20.5-51.1); % Monocytes 10.7 % (1.7-9.3); % Neutrophils 58.8 % (42.2-75.2); Absolute Basophils 0.1 10^3/uL (0-0.2); Absolute Eosinophils 0.4 10^3/uL (0-0.7); Absolute Lymphocytes 1.4 10^3/uL (1.2-3.4); Absolute Monocytes 0.7 10^3/uL (0.1-0.6); Absolute Neutrophils 3.6 10^3/uL (1.4-6.5); Hematocrit 38.2 % (39.0-52.0); Hemoglobin 12.9 g/dL (13.0-18.0); Mean Corp Hgb Conc. 33.8 g/dL (33.0-37.0); Mean Corpuscular Hgb 32.9 pg (27.0-31.0); Mean Corpuscular Volume 97.4 fL (80.0-94.0); Mean Platelet Volume 11.6 fL (7.4-10.4); Nucleated Red Blood Cells % 0 % (-); Platelet Count 108 10^3/uL (130-400); Red Blood Cell Count 3.92 10^6/uL (4.70-6.10); Red Cell Dist. Width 14.6 % (11.5-14.5); White Blood Cell Count 6.1 10^3/uL (4.8-10.8)
--- NOTE | 2024-12-14 14:21 | W.PN.HOSP.TC ---
Today's Communication/Plan
-
Continue DAPT for 90 days
Continue with high intensity statin
Interrogation of Linq device morning 5
Continue neurochecks
Transition to Keflex to complete 7 days antibiotics
Assessment / Plan
Assessment / Plan
#Acute CVA
#Dementia
#Linq device in place
-Presented with slurred speech and possible mild RUE weakness; MRI w/ small evolving acute infarct of left rodrigez radiata
-Not candidate for TNK or thrombectomy; outside of window for permissive hypertension; was started on ASA
-Had multiple lacunar infarcts, right temporal infarct on CTA; Home meds include Plavix and statin
-Currently with Linq device, apparent concern for underlying AF/AFL though not picked up on telemetry here
-NIHSS score 0-1; speech may be mildly slurred though seems improved, some ataxia of (R) hand
-Discussed with neuro who recommended transitioning to Brilinta
Plan
-Continue with DAPT (ASA + Brillinta) and high intensity statin for now
-Plan to discontinue Brilinta after 90 days and proceed with MAPT
-Follow-up interrogation of Linq device on morning 5
-Defer TTE for now
-Monitor neurochecks
-LDL goal <70
#Urinary tract infection
-Initial concern for possible CVA like symptoms, however slurred speech quickly resolved, no other FND
-Urinalysis with pyuria, leukocyte esterase and nitrite positivity, moderate bacteria; started on IV CTX
-Urine culture with preliminary positive result for E. coli, pansensitive
-Transition IV ceftriaxone to Keflex to complete 7-day regimen
#Primary hypertension
-Home regimen does not include any first-line antihypertensive agents
-Has history of lacunar infarcts which likely related to chronic hypertension
-Blood pressure here well-controlled
#Dyslipidemia
-Has ASCVD history with TAA, previous CVAs
-Home medications include high intensity
#Thoracic aortic aneurysm
#AAA s/p EVAR
-Likely related to history of hypertension and dyslipidemia
-Not on first-line antihypertensive agent, is on high intensity statin
-Will need follow-up echocardiogram for TAA as an OP
#Interstitial lung
-Per history, does not utilize supplemental oxygen at baseline
-No recent PFTs, does not appear to be on any medications
-Currently stable on room air
#BPH
-Not currently on any medication
-Will monitor for signs of outlet obstruction
Diet: Regular, CONSULTING GROUP ANALYST consult
DVT prophylaxis: SCDs
CODE STATUS: DNR
Anticipated Discharge: 24 - 48 hours
Subjective/Interval History
-
Date of Service: December 14, 2024
Seen and examined at the bedside. No acute events reported overnight. AFVSS this morning
Labs are stable with hemoglobin 12.9. Patient states he feels well and has no complaints
Spoke with nursing schedule supervisor who states Linq device can be interrogated morning of 12/15
Objective Data
-
Labs:
Laboratory Results
12/14/24
06:37
WBC 6.1
Hgb 12.9 L
Hct 38.2 L
Plt Count 108 L
Vital Signs:
Vital Signs
Temp Pulse Resp BP Pulse Ox
98.1 F 50 16 135/51 95
12/14/24 07:40 12/14/24 07:40 12/14/24 07:40 12/14/24 07:40 12/14/24 07:40
I&O
12/13/24 12/14/24 12/15/24
06:59 06:59 06:59
Intake Total 600 / 600 1500 / 1500
Balance 600 / 600 1500 / 1500
Review of Systems
-
History Source: Patient
All other systems: Reviewed and negative
Physical Exam
-
General: Well Developed, Well Nourished, No Apparent Distress and Comfortable
HEENT: Normocephalic, Atraumatic, Moist Mucous Membranes and Anicteric
Respiratory: Clear to Auscultation and Non Labored Respirations; Negative Accessory Resp Muscle Use
Cardiac: Regular Rhythm and S1/S2; Negative Murmur, Rub or Gallop
GI: Soft, Nontender, Nondistended and Normal Bowel Sounds
Musculoskeletal: No Clubbing, No Cyanosis and No Edema
Skin: Warm, Dry and Normal Turgor; Negative Rash
Neuro: AO x 3 and Nonfocal/Grossly Intact; Negative Tremors
Psych: Calm
Data Reviewed
-
Labs: Labs Reviewed by me and Discussed with Patient
[2024-12-14 15:00] VITALS: BP 120/46
[2024-12-14] MEDS: KEFLEX 500 MG PO (20:59)
[2024-12-14] MEDS: LIPITOR 40 MG PO (20:59)
[2024-12-14 23:00] VITALS: BP 131/54
[2024-12-15] VITALS (7 sets, daily range): BP systolic 103–139; BP diastolic 41–57; PULSE 50; O2SAT 97
[2024-12-15 07:12] LABS: Blood Urea Nitrogen 19 mg/dl (9-20); Calcium 8.5 mg/dl (8.4-10.2); Carbon Dioxide 26 mmol/L (22-30); Chloride 109 mmol/L (98-107); Estimated Creatinine Clearance 55 ml/min; Glucose 90 mg/dl (70-99); Potassium 4.1 mmol/L (3.5-5.1); Sodium 141 mmol/L (135-145); eGFR > 60.00
[2024-12-15 07:39] LABS: % Basophils 0.5 % (0-2); % Eosinophils 7.5 % (0-6); % Immature Granulocytes 0.7 % (0-0.5); % Lymphocytes 20.5 % (20.5-51.1); % Monocytes 8.4 % (1.7-9.3); % Neutrophils 62.4 % (42.2-75.2); Absolute Eosinophils 0.5 10^3/uL (0-0.7); Absolute Lymphocytes 1.3 10^3/uL (1.2-3.4); Absolute Monocytes 0.5 10^3/uL (0.1-0.6); Absolute Neutrophils 3.8 10^3/uL (1.4-6.5); Hematocrit 36.8 % (39.0-52.0); Hemoglobin 12.7 g/dL (13.0-18.0); Mean Corp Hgb Conc. 34.5 g/dL (33.0-37.0); Mean Corpuscular Hgb 33.6 pg (27.0-31.0); Mean Corpuscular Volume 97.4 fL (80.0-94.0); Mean Platelet Volume 11.4 fL (7.4-10.4); Nucleated Red Blood Cells % 0 % (-); Platelet Count 107 10^3/uL (130-400); Red Blood Cell Count 3.78 10^6/uL (4.70-6.10); Red Cell Dist. Width 14.1 % (11.5-14.5); White Blood Cell Count 6.1 10^3/uL (4.8-10.8)
[2024-12-15] MEDS: KEFLEX 500 MG PO ×2 (08:05→21:00)
[2024-12-15] MEDS: TYLENOL 1000 MG PO ×3 (08:05→21:00)
[2024-12-15] MEDS: ASPIR LOW (ENTERIC COATED) 81 MG PO (08:05)
[2024-12-15] MEDS: BRILINTA 90 MG PO ×2 (08:05→20:59)
--- NOTE | 2024-12-15 09:48 | W.PN.HOSP.TC ---
Today's Communication/Plan
-
TTE
Neurology consult
Asa/Brilinta
Linq interrogation
Assessment / Plan
Assessment / Plan
84-year-old male past medical history of CVA, Alzheimer's dementia, hypertension, hypercholesteremia, interstitial lung disease, abdominal aortic aneurysm status post repair, ascending aorta aneurysm, BPH, presenting from [facility] for slurred
speech and weakness.
HEAD/NECK CTA
IMPRESSION:
Small acute infarct involving the left rodrigez radiata at the level of the body of left lateral ventricle without mass effect.
Mild chronic microvascular white matter ischemic change. Tiny chronic lacunar infarcts. Mild stable focal encephalomalacia from remote infarct in the posterior right temporal lobe. 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
lobe.
MRI Brain
IMPRESSION:
Small acute infarct involving the left rodrigez radiata at the level of the body of left lateral ventricle without mass effect.
Mild chronic microvascular white matter ischemic change. Tiny chronic lacunar infarcts. Mild stable focal encephalomalacia from remote infarct in the posterior right temporal lobe. 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
lobe.
#Acute CVA
#Dementia
#Linq device in place
-Presented with slurred speech and possible mild RUE weakness; MRI w/ small evolving acute infarct of left rodrigez radiata
-Not candidate for TNK or thrombectomy; outside of window for permissive hypertension; was started on ASA
-Had multiple lacunar infarcts, right temporal infarct on CTA; Home meds include Plavix and statin
-Currently with Linq device, apparent concern for underlying AF/AFL though not picked up on telemetry here
-NIHSS score 0-1; speech may be mildly slurred though seems improved, some ataxia of (R) hand
-Discussed with neuro who recommended transitioning to Brilinta
Plan
-Continue with DAPT (ASA + Brillinta) and high intensity statin for now
-Plan to discontinue Brilinta after 90 days and proceed with MAPT - will obtain formal neurology consult today
-Follow-up interrogation of Linq device on morning 12/15 - has to bring in external component per RN
-TTE today
-Monitor neurochecks
-LDL goal <70
PT/OT - SNF recommended
#Urinary tract infection
-Initial concern for possible CVA like symptoms, however slurred speech quickly resolved, no other FND
-Urinalysis with pyuria, leukocyte esterase and nitrite positivity, moderate bacteria; started on IV CTX
-Urine culture with preliminary positive result for E. coli, pansensitive
-Transition IV ceftriaxone to Keflex to complete 7-day regimen
#Primary hypertension
-Home regimen does not include any first-line antihypertensive agents
-Has history of lacunar infarcts which likely related to chronic hypertension
-Blood pressure here well-controlled
#Dyslipidemia
-Has ASCVD history with TAA, previous CVAs
-Home medications include high intensity
#Thoracic aortic aneurysm
#AAA s/p EVAR
-Likely related to history of hypertension and dyslipidemia
-Not on first-line antihypertensive agent, is on high intensity statin
-Will need follow-up echocardiogram for TAA as an OP
#Interstitial lung
-Per history, does not utilize supplemental oxygen at baseline
-No recent PFTs, does not appear to be on any medications
-Currently stable on room air
#BPH
-Not currently on any medication
-Will monitor for signs of outlet obstruction
Diet: Regular, CLIPPING MARKER consult
DVT prophylaxis: SCDs
CODE STATUS: DNR
Anticipated Discharge: 24 - 48 hours
Subjective/Interval History
-
Date of Service: December 15, 2024
states he is feeling better today
seen eating breakfast
Objective Data
-
Labs:
Laboratory Results
12/15/24
06:19
WBC 6.1
Hgb 12.7 L
Hct 36.8 L
Plt Count 107 L
Sodium 141
Potassium 4.1
Chloride 109 H
Carbon Dioxide 26
BUN 19
Creatinine 0.9
Glucose 90
Calcium 8.5
Vital Signs:
Vital Signs
Temp Pulse Resp BP Pulse Ox
98.2 F 45 18 133/53 96
12/15/24 07:42 12/15/24 07:42 12/15/24 07:42 12/15/24 07:42 12/15/24 07:42
I&O
12/14/24 12/15/24 12/16/24
06:59 06:59 06:59
Intake Total 1500 / 1500 1360 / 1360
Balance 1500 / 1500 1360 / 1360
Review of Systems
-
History Source: Patient
All other systems: Reviewed and negative
Physical Exam
-
General: Well Developed, Well Nourished, No Apparent Distress and Comfortable
HEENT: Normocephalic, Atraumatic, Moist Mucous Membranes and Anicteric
Respiratory: Clear to Auscultation and Non Labored Respirations; Negative Accessory Resp Muscle Use
Cardiac: Regular Rhythm and S1/S2; Negative Murmur, Rub or Gallop
GI: Soft, Nontender, Nondistended and Normal Bowel Sounds
Musculoskeletal: No Clubbing, No Cyanosis and No Edema
Skin: Warm, Dry and Normal Turgor; Negative Rash
Neuro: AO x 3; Negative Tremors
Hematologic / Lymphatic: Other (no facial droop; speech normal this morning, no pronator drift )
Psych: Calm
--- NOTE | 2024-12-15 10:23 | CON.NEURO ---
Consultation
Order
Date of Consultation: 12/15/24
Requesting Provider: Filomena Roque MD
Reason for Consult: Stroke
Neurology Consultation Note.
HPI: This is an 84-year-old right-handed man who presented to [facility] on December 11, 2024 with dysarthria. According to EMR the patient was found in him prescribed incontinent on the day of presentation.
ER VS: 121/59, 71�45, afebrile.
EKG: NSR, QTc Int : 438 ms
PDMP: none
Labs: Platelets�121�107, glucose�135, normal WBCs, sodium, calcium, CK. UA culture�E. Coli.
Brain MRI without ga(12/13/2024) �acute infarct in the the left rodrigez radiata. Mild chronic microvascular white matter ischemic changes. Tiny chronic lacunar infarct of the left thalamus. Small white matter chronic lacunar infarcts involving the
rodrigez radiata, bilaterally. Posterior right temporal lobe small focus of encephalomalacia, consistent with remote infarct. Stable small focus of metallic susceptibility low signal intensity involving subcortical white matter of the right parietal
lobe measuring approximately 7 mm. Possible small cavernous malformation.
CTA head/neck-no significant stenoses.
Mr. Kapoor was seen by neurology service in January 2024 when he was diagnosed with L embolic left MCA territory stroke.
PMH: L MCA stroke(01/2024), HTN, interstitial lung disease, ambulatory dysfunction, history of severe Covid in 2021, BPH, recurrent UTIs
PSH:ILR(04/07/24), TKA, AAA repair,
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
FH: Not contributory to current presentation
All:NKDA
ROS: Negative for headache, change in vision and strength.
General: Well developed. In no acute distress.
Cardio: Regular rate and rhythm without murmur. Extremities are without cyanosis or edema.
Neuro:
Mental Status: Alert, oriented to self, location, season. Moderate expressive greater than receptive aphasia. Follows simple requests. No hemineglect.
Cranial Nerves: Pupils are equally round and reactive to light. EOMs full. Visual acosta full to confrontation. No ptosis. No nystagmus. V1-V3 intact to light touch and pinprick bilaterally, symmetric. Face symmetric. Impaired hearing AU.
The palate elevated well. SCMs and traps 5/5. Tongue midline. No dysarthria.
Motor: No pronator or arm drift. Strength 5/5 throughout. No clonus.
Reflexes: Bilateral grasp.
Sensory: Limited due to aphasia
Coordination: No dysmetria or tremor.
Gait: deferred
Assessment and Plan:
I. Acute left rodrigez radiata stroke. Likely etiology�small vessel disease versus embolic. Differential diagnosis includes embolism from occult sources in the aorta(complex atheroma in the ascending aorta or proximal arch), substenotic
atherosclerotic disease, nonatherosclerotic vasculopathies(vasculitis), less likely� pulmonary shunts.
II. History of L MCA territory stroke(01/2024)
III. Right parietal cavernous malformation.
III. Vascular/infectious encephalopathy.
-Continue Telemetry monitoring
-ILR interrogation.
-Continue Brilinta 90 mg twice daily and Lipitor 40 mg nightly
-PT/speech therapy.
-Will contact patient's family to obtain collateral history.
-DVT prophylaxis.
I personally reviewed all radiology and labs along with past medical records pertinent to current medical problems. Total time spent in patient care is 60 minutes.
Thank you for allowing us to participate in the care of this patient. We will continue to follow. Please do not hesitate to contact us with any questions or concerns.
Subjective/Objective
Subjective Data
Date of Service: December 15, 2024
Objective Data
Vital Signs
Temp Pulse Resp BP Pulse Ox
36.8 C 45 18 133/53 96
12/15/24 07:42 12/15/24 07:42 12/15/24 07:42 12/15/24 07:42 12/15/24 08:00
Lab Results
12/15/24 06:19
12/15/24 06:19
Sodium 141 mmol/L (135-145) 12/15/24 06:19
Potassium 4.1 mmol/L (3.5-5.1) 12/15/24 06:19
BUN 19 mg/dl (9-20) 12/15/24 06:19
Glucose 90 mg/dl (70-99) 12/15/24 06:19
Calcium 8.5 mg/dl (8.4-10.2) 12/15/24 06:19
Patient Allergies
No Known Allergies Allergy (Verified 04/07/24 11:21)
Medications
-
Active Medications
Generic Name Dose Route Start Last Admin
Trade Name Freq PRN Reason Stop Dose Admin
Acetaminophen 1,000 mg 12/12/24 08:00 12/15/24 08:05
Acetaminophen 500 Mg Tablet PO 01/09/25 07:59 1,000 mg
TID@0800,1400,2000 SUSY Administration
Aspirin 81 mg 12/12/24 08:00 12/15/24 08:05
Aspirin 81 Mg (Enteric Coated) Tablet PO 01/09/25 07:59 81 mg
DAILY SUSY Administration
Atorvastatin Calcium 40 mg 12/12/24 20:00 12/14/24 20:59
Atorvastatin (Lipitor) 40 Mg Tablet PO 01/09/25 19:59 40 mg
DAILY@1999 SUSY Administration
Cephalexin HCl 500 mg 12/14/24 20:00 12/15/24 08:05
Cephalexin 500 Mg Capsule PO 500 mg
BID SUSY Administration
Latanoprost 0 drop 12/15/24 22:00
Latanoprost 0.005% (Ophthalmic Solution) 2.5 Ml Bottle BOTH EYES 01/12/25 21:59
HS SUSY
Sodium Chloride 0 flush 12/12/24 02:00
Sodium Chloride 0.9% (Flush) Syringe IV 01/09/25 01:59
PER PROTOCOL SUSY
Ticagrelor 90 mg 12/13/24 20:00 12/15/24 08:05
Ticagrelor (Brilinta) 90 Mg Tablet PO 01/10/25 19:59 90 mg
BID SUSY Administration
Home Medications
�Medication �Instructions �Recorded
atorvastatin 40 mg tablet 40 mg PO HS cholesterol 12/12/24
clopidogrel 75 mg tablet 75 mg PO DAILY Blood Clot 12/12/24
Prevention/Tx
latanoprost 0.005 % eye drops 1 drp BOTH EYES HS Eye Condition 12/12/24
multivitamin with minerals-folic 1 tab PO DAILY Supplement 12/12/24
acid 200 mcg chewable tablet
(Multivitamin Gummies)
Vital Signs and Labs
-
Vital Signs and Labs:
Vital Signs
Temp Pulse Resp BP Pulse Ox
36.8 C 45 18 133/53 96
12/15/24 07:42 12/15/24 07:42 12/15/24 07:42 12/15/24 07:42 12/15/24 08:00
Lab Results
12/15/24 06:19
12/15/24 06:19
Sodium 141 mmol/L (135-145) 12/15/24 06:19
Potassium 4.1 mmol/L (3.5-5.1) 12/15/24 06:19
BUN 19 mg/dl (9-20) 12/15/24 06:19
Glucose 90 mg/dl (70-99) 12/15/24 06:19
Calcium 8.5 mg/dl (8.4-10.2) 12/15/24 06:19
LDL Cholesterol, Calc Cancelled 12/15/24 10:42
Medications
-
Medications:
Generic Name Dose Route Start Last Admin
Trade Name Freq PRN Reason Stop Dose Admin
Acetaminophen 1,000 mg 12/12/24 08:00 12/15/24 08:05
Acetaminophen 500 Mg Tablet PO 01/09/25 07:59 1,000 mg
TID@0800,1400,1999 SUSY Administration
Aspirin 81 mg 12/12/24 08:00 12/15/24 08:05
Aspirin 81 Mg (Enteric Coated) Tablet PO 01/09/25 07:59 81 mg
DAILY SUSY Administration
Atorvastatin Calcium 40 mg 12/12/24 20:00 12/14/24 20:59
Atorvastatin (Lipitor) 40 Mg Tablet PO 01/09/25 19:59 40 mg
DAILY@1999 SUSY Administration
Cephalexin HCl 500 mg 12/14/24 20:00 12/15/24 08:05
Cephalexin 500 Mg Capsule PO 500 mg
BID SUSY Administration
Latanoprost 0 drop 12/15/24 22:00
Latanoprost 0.005% (Ophthalmic Solution) 2.5 Ml Bottle BOTH EYES 01/12/25 21:59
HS SUSY
Sodium Chloride 0 flush 12/12/24 02:00
Sodium Chloride 0.9% (Flush) Syringe IV 01/09/25 01:59
PER PROTOCOL SUSY
Ticagrelor 90 mg 12/13/24 20:00 12/15/24 08:05
Ticagrelor (Brilinta) 90 Mg Tablet PO 01/10/25 19:59 90 mg
BID SUSY Administration
Home Medications
-
Home Medications
atorvastatin 40 mg tablet 40 mg PO HS cholesterol 12/12/24
clopidogrel 75 mg tablet 75 mg PO DAILY Blood Clot Prevention/Tx 12/12/24
latanoprost 0.005 % eye drops 1 drp BOTH EYES HS Eye Condition 12/12/24
multivitamin with minerals-folic acid 200 mcg chewable tablet (Multivitamin Gummies) 1 tab PO DAILY Supplement 12/12/24
--- NOTE | 2024-12-15 11:01 | PTOTSP ---
Speech Therapy Language Evaluation:
Pt earned an overall score of 8.77 on the QAB, indicative of mild aphasia per parameters of this assessment. Pt presented with minimal dysarthria as characterized by occasions of imprecise articulation. Pt also demonstrated mildly reduced speech
rate, reduced length/complexity of utterances, anomia, phonemic paraphasias, and self-corrections. Despite this, speech remained largely intelligible during conversation. Of note, pt evaluated by LABORER HOISTING services in January 2024 where he earned an overall
score of 2.99 on QAB (form 1 also administered), indicative of severe aphasia. Pt demonstrated substantial improvement on his score today and reported he is nearing his baseline, therefore skilled LABORER HOISTING intervention not warranted at this time. LABORER HOISTING
provided education for ongoing LABORER HOISTING services at next level of care if desired. Pt in verbal agreement with plan.
[2024-12-15 11:15] LABS: HDL Cholesterol 31 mg/dl; LDL Cholesterol, Calculated 58 mg/dl; Total Cholesterol 106 mg/dl (50-199); Triglyceride 86 mg/dl (10-149); Very Low Density Lipoprotein 17 mg/dl (0-30)
[2024-12-15 12:06] LABS: Glycohemoglobin (HgbA1c) 5.2 % (4.0-5.6)
--- NOTE | 2024-12-15 13:21 | W.PN.UPDATE ---
Update Note
Progress Note Update
confirmed plan with Dr. Garay who recommends Brilinta monotherapy now (will discontinue aspirin).
[2024-12-15 16:07] LABS: Vitamin B12 771 pg/ml (239-931)
[2024-12-15] MEDS: LIPITOR 40 MG PO (21:00)
[2024-12-15] MEDS: XALATAN OPHTHALMIC SOLUTION 1 DROP BOTH EYES (21:01)
[2024-12-16] VITALS (7 sets, daily range): BP systolic 108–140; BP diastolic 44–59; PULSE 49; O2SAT 96
--- NOTE | 2024-12-16 07:15 | W.PN.NEURO.1 ---
Today's Communication / Plan
-
.
Subjective/Objective
Subjective Data
Date of Service: December 16, 2024
Neurology follow-up note.
The patient reports no complaints.
ILR interrogation showed no evidence of A-fib.
PMH: L MCA stroke(01/2024), HTN, interstitial lung disease, ambulatory dysfunction, history of severe Covid in 2021, BPH, recurrent UTIs
PSH: ILR(04/07/24), TKA, AAA repair
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
FH: Not contributory to current presentation
All:NKDA
ROS: Negative for headache, change in vision and strength.
General: Well developed. In no acute distress.
Cardio: Regular rate and rhythm without murmur. Extremities are without cyanosis or edema.
Neuro:
Mental Status: Alert, oriented to self, location, season. Moderate expressive greater than receptive aphasia. Follows simple requests. No hemineglect.
Cranial Nerves: Pupils are equally round and reactive to light. EOMs full. Visual acosta full to confrontation. No ptosis. No nystagmus. V1-V3 intact to light touch and pinprick bilaterally, symmetric. Face symmetric. Impaired hearing AU.
The palate elevated well. SCMs and traps 5/5. Tongue midline. No dysarthria.
Motor: No pronator or arm drift. Strength 5/5 throughout. No clonus. Reduced fine finger movements on the right.
Reflexes: Bilateral grasp.
Sensory: Limited due to aphasia
Coordination: No dysmetria or tremor.
Gait: deferred
Assessment and Plan:
I. Acute left rodrigez radiata stroke. Likely etiology�small vessel disease versus embolic. Differential diagnosis includes embolism from occult sources in the aorta(complex atheroma in the ascending aorta or proximal arch), substenotic
atherosclerotic disease, nonatherosclerotic vasculopathies(vasculitis), less likely� pulmonary shunts.
II. History of L MCA territory stroke(01/2024)
III. Right parietal cavernous malformation.
III. Vascular/infectious encephalopathy.
-Continue Telemetry monitoring
-Continue Brilinta 90 mg twice daily and Lipitor 40 mg nightly
-PT/speech therapy.
-DVT prophylaxis.
I personally reviewed all radiology and labs along with past medical records pertinent to current medical problems. Total time spent in patient care is 40 minutes.
Thank you for allowing us to participate in the care of this patient. Please do not hesitate to contact us with any questions or concerns.
Objective Data
Vital Signs
Temp Pulse Resp BP Pulse Ox
36.7 C 53 18 122/44 97
12/16/24 03:30 12/16/24 03:30 12/16/24 03:30 12/16/24 03:30 12/16/24 03:30
Lab Results
12/15/24 06:19
12/15/24 06:19
Sodium 141 mmol/L (135-145) 12/15/24 06:19
Potassium 4.1 mmol/L (3.5-5.1) 12/15/24 06:19
BUN 19 mg/dl (9-20) 12/15/24 06:19
Glucose 90 mg/dl (70-99) 12/15/24 06:19
Calcium 8.5 mg/dl (8.4-10.2) 12/15/24 06:19
LDL Cholesterol, Calc Cancelled 12/15/24 10:42
Vitamin B12 771 pg/ml (239-931) 12/15/24 06:19
Patient Allergies
No Known Allergies Allergy (Verified 04/07/24 11:21)
Vital Signs and Labs
-
Vital Signs and Labs:
Vital Signs
Temp Pulse Resp BP Pulse Ox
36.7 C 53 18 122/44 97
12/16/24 03:30 12/16/24 03:30 12/16/24 03:30 12/16/24 03:30 12/16/24 03:30
Lab Results
12/15/24 06:19
12/15/24 06:19
Sodium 141 mmol/L (135-145) 12/15/24 06:19
Potassium 4.1 mmol/L (3.5-5.1) 12/15/24 06:19
BUN 19 mg/dl (9-20) 12/15/24 06:19
Glucose 90 mg/dl (70-99) 12/15/24 06:19
Calcium 8.5 mg/dl (8.4-10.2) 12/15/24 06:19
LDL Cholesterol, Calc Cancelled 12/15/24 10:42
Vitamin B12 771 pg/ml (239-931) 12/15/24 06:19
Medications
-
Medications:
Generic Name Dose Route Start Last Admin
Trade Name Freq PRN Reason Stop Dose Admin
Acetaminophen 1,000 mg 12/12/24 08:00 12/15/24 21:00
Acetaminophen 500 Mg Tablet PO 01/09/25 07:59 1,000 mg
TID@0800,1400,1999 SUSY Administration
Atorvastatin Calcium 40 mg 12/12/24 20:00 12/15/24 21:00
Atorvastatin (Lipitor) 40 Mg Tablet PO 01/09/25 19:59 40 mg
DAILY@1999 SUSY Administration
Cephalexin HCl 500 mg 12/14/24 20:00 12/15/24 21:00
Cephalexin 500 Mg Capsule PO 500 mg
BID SUSY Administration
Latanoprost 0 drop 12/15/24 22:00 12/15/24 21:01
Latanoprost 0.005% (Ophthalmic Solution) 2.5 Ml Bottle BOTH EYES 01/12/25 21:59 1 drop
HS SUSY Administration
Sodium Chloride 0 flush 12/12/24 02:00
Sodium Chloride 0.9% (Flush) Syringe IV 01/09/25 01:59
PER PROTOCOL SUSY
Ticagrelor 90 mg 12/13/24 20:00 12/15/24 20:59
Ticagrelor (Brilinta) 90 Mg Tablet PO 01/10/25 19:59 90 mg
BID SUSY Administration
Home Medications
-
Home Medications
atorvastatin 40 mg tablet 40 mg PO HS cholesterol 12/12/24
clopidogrel 75 mg tablet 75 mg PO DAILY Blood Clot Prevention/Tx 12/12/24
latanoprost 0.005 % eye drops 1 drp BOTH EYES HS Eye Condition 12/12/24
multivitamin with minerals-folic acid 200 mcg chewable tablet (Multivitamin Gummies) 1 tab PO DAILY Supplement 12/12/24
[2024-12-16] MEDS: KEFLEX 500 MG PO ×2 (08:27→20:39)
[2024-12-16] MEDS: BRILINTA 90 MG PO ×2 (08:27→20:39)
[2024-12-16] MEDS: TYLENOL 1000 MG PO ×3 (08:27→20:40)
--- NOTE | 2024-12-16 11:01 | W.PN.HOSP.TC ---
Today's Communication/Plan
-
continue Brilinta
dispo planning for SNF
Assessment / Plan
Assessment / Plan
84-year-old male past medical history of CVA, Alzheimer's dementia, hypertension, hypercholesteremia, interstitial lung disease, abdominal aortic aneurysm status post repair, ascending aorta aneurysm, BPH, presenting from [facility] for slurred
speech and weakness.
HEAD/NECK CTA
IMPRESSION:
Small acute infarct involving the left rodrigez radiata at the level of the body of left lateral ventricle without mass effect.
Mild chronic microvascular white matter ischemic change. Tiny chronic lacunar infarcts. Mild stable focal encephalomalacia from remote infarct in the posterior right temporal lobe. 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
lobe.
MRI Brain
IMPRESSION:
Small acute infarct involving the left rodrigez radiata at the level of the body of left lateral ventricle without mass effect.
Mild chronic microvascular white matter ischemic change. Tiny chronic lacunar infarcts. Mild stable focal encephalomalacia from remote infarct in the posterior right temporal lobe. 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
lobe.
TTE 12/15/24
CONCLUSIONS
Normal left ventricular chamber size. Normal left ventricular systolic
function. Left ventricular ejection fraction is 55%. Normal regional wall
motion. Mild concentric left ventricular hypertrophy.
[place] aortic valve. Aortic sclerosis without stenosis. Mild to moderate
aortic regurgitation.
There is no cardiac embolic source seen. However if clinical suspicion is high
would suggest RITA.
Since echocardiogram January 2024, there is no significant change.
#Acute CVA
#Linq device in place
-Presented with slurred speech and possible mild RUE weakness; MRI w/ small evolving acute infarct of left rodrigez radiata
-Not candidate for TNK or thrombectomy; outside of window for permissive hypertension;
-Had multiple lacunar infarcts, right temporal infarct on CTA; Home meds include Plavix and statin
s/p Linq interrogation - shows 0% in AT/AF
-appreciate Neurology consult, transitioned to Brilinta monotherapy
-continue statin
-TTE without thrombus
-awaiting SNF
#Urinary tract infection
- continue Keflex (day 6/7 of therapy)
#Primary hypertension
-Home regimen does not include any first-line antihypertensive agents
-Has history of lacunar infarcts which likely related to chronic hypertension
-Blood pressure here well-controlled
#Dyslipidemia
-Has ASCVD history with TAA, previous CVAs
-Home medications include high intensity statin
#Thoracic aortic aneurysm
#AAA s/p EVAR
-Likely related to history of hypertension and dyslipidemia
-Not on first-line antihypertensive agent, is on high intensity statin
-Will need follow-up echocardiogram for TAA as an OP
#Interstitial lung
-Per history, does not utilize supplemental oxygen at baseline
-No recent PFTs, does not appear to be on any medications
-Currently stable on room air
#BPH
-Not currently on any medication
-Will monitor for signs of outlet obstruction
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
DVT prophylaxis: SCDs
CODE STATUS: DNR
Anticipated Discharge: Within 24 hours
Subjective/Interval History
-
Date of Service: December 16, 2024
states he is feeling well
speaking closer to baseline
no new complaints
Objective Data
-
Vital Signs:
Vital Signs
Temp Pulse Resp BP Pulse Ox
97.5 F 47 16 122/50 97
12/16/24 07:25 12/16/24 07:25 12/16/24 07:25 12/16/24 07:25 12/16/24 07:25
I&O
12/15/24 12/16/24 12/17/24
06:59 06:59 06:59
Intake Total 1360 / 1360
Balance 1360 / 1360
Review of Systems
-
History Source: Patient
All other systems: Reviewed and negative
Physical Exam
-
General: Well Developed, Well Nourished, No Apparent Distress and Comfortable
HEENT: Normocephalic, Atraumatic, Moist Mucous Membranes and Anicteric
Respiratory: Clear to Auscultation and Non Labored Respirations; Negative Accessory Resp Muscle Use
Cardiac: Regular Rhythm and S1/S2; Negative Murmur, Rub or Gallop
GI: Soft, Nontender, Nondistended and Normal Bowel Sounds
Musculoskeletal: No Clubbing, No Cyanosis and No Edema
Skin: Warm, Dry and Normal Turgor; Negative Rash
Neuro: AO x 3; Negative Tremors
Hematologic / Lymphatic: Other (no facial droop; speech normal this morning, no pronator drift )
Psych: Calm
Data Reviewed
-
Diagnostic Radiology: Report Reviewed by me
Labs: Labs Reviewed by me
--- NOTE | 2024-12-16 11:47 | CM ---
PT OT indicate SNF need at dc.
Pt lives at [facility].
LM with son Cedrick [phone] to review plan.
Spoke with [facility] liaison there should be a bed available tomorrow.
Referral placed for [facility].
Will need Christopher marte which will be done by Stephanie at .
PLAN To SNF after auth
--- NOTE | 2024-12-16 12:40 | CM ---
Pt is ready for discharge to SNF. CM spoke with pt's son to discuss SNF options. Son would like a facility in the [facility].
Per Karlene at [facility], [facility] with their [facility].
[facility] does not have any available beds at this time; [facility] is looking into whether they participate with [facility].
Plan: Discharge to SNF when bed available; likely transfer to [facility] unless [facility] is able to accommodate admission.
[2024-12-16] MEDS: LIPITOR 40 MG PO (20:39)
[2024-12-16] MEDS: XALATAN OPHTHALMIC SOLUTION 1 DROP BOTH EYES (21:51)
[2024-12-17 03:00] VITALS: BP 139/51
[2024-12-17 08:07] VITALS: BP 113/47
[2024-12-17] MEDS: KEFLEX 500 MG PO (08:24)
[2024-12-17] MEDS: BRILINTA 90 MG PO (08:24)
[2024-12-17] MEDS: TYLENOL 1000 MG PO (08:24)
[2024-12-17 09:50] VITALS: BP 135/55
[2024-12-17 10:49] VITALS: BP 135/55; PULSE 51; O2SAT 98
[2024-12-17 11:15] VITALS: BP 121/53
--- NOTE | 2024-12-17 11:28 | CM ---
Addendum entered by Deborah Drummond 12/17/24 14:00:
Ambulance fruit or nut picker time is 2:30 pm today. Patient, [facility], and family are all aware of transfer time/plan.
Original Note:
Pt is cleared for discharge; [facility] is able to admit patient with [facility] [employer]. Auth is [id number]. Review by Sunday12/23/2024; fax to [phone].
Plan: Discharge to [facility] for SNF, 3rd floor. CM spoke with pt's son who is pleased with disposition. Ambulance transport requested. Awaiting transport time and will notify pt and son.
[facility] Report: [phone]
[facility]
[2024-12-17 11:41] VITALS: BP 121/53
--- NOTE | 2024-12-17 12:43 | W.PN.HOSP.TC ---
Today's Communication/Plan
-
Discharge to SNF
Brilinta in place of Plavix
Follow-up with PCP and neurology within next 3 weeks
CBC and BMP in 1 week
Assessment / Plan
Assessment / Plan
#Acute CVA
#Linq device in place
-Presented with slurred speech and possible mild RUE weakness; MRI w/ small evolving acute infarct of left rodrigez radiata
-Not candidate for TNK or thrombectomy; outside of window for permissive hypertension;
-Had multiple lacunar infarcts, right temporal infarct on CTA; Home meds include Plavix and statin
-s/p Linq interrogation - shows 0% in AT/AF
-appreciate Neurology consult, transitioned to Brilinta monotherapy
-continue statin
-TTE without thrombus
-awaiting SNF
#Urinary tract infection
-continue Keflex (day 7 of therapy)
#Primary hypertension
-Home regimen does not include any first-line antihypertensive agents
-Has history of lacunar infarcts which likely related to chronic hypertension
-Blood pressure here well-controlled
#Dyslipidemia
-Has ASCVD history with TAA, previous CVAs
-Home medications include high intensity statin
#Thoracic aortic aneurysm
#AAA s/p EVAR
-Likely related to history of hypertension and dyslipidemia
-Not on first-line antihypertensive agent, is on high intensity statin
-Will need follow-up echocardiogram for TAA as an OP
#Interstitial lung
-Per history, does not utilize supplemental oxygen at baseline
-No recent PFTs, does not appear to be on any medications
-Currently stable on room air
#BPH
-Not currently on any medication
-Will monitor for signs of outlet obstruction
Diet: Regular
DVT prophylaxis: SCDs
CODE STATUS: DNR
Anticipated Discharge: Today
Subjective/Interval History
-
Date of Service: December 17, 2024
Seen and examined at bedside. No acute events reported overnight. AFVSS this morning
Blood counts have been stable on Brilinta. Per case management SNF has bed available today
He denies any new complaints and is ready to leave the hospital
Objective Data
-
Vital Signs:
Vital Signs
Temp Pulse Resp BP Pulse Ox
97.3 F 67 17 121/53 98
12/17/24 11:15 12/17/24 11:15 12/17/24 11:15 12/17/24 11:15 12/17/24 11:15
I&O
12/16/24 12/17/24 12/18/24
06:59 06:59 06:59
Intake Total 480 / 480
Balance 480 / 480
Review of Systems
-
History Source: Patient
All other systems: Reviewed and negative
Physical Exam
-
General: Well Developed, Well Nourished, No Apparent Distress and Comfortable
HEENT: Normocephalic, Atraumatic and Moist Mucous Membranes
Respiratory: Clear to Auscultation; Negative Non Labored Respirations
Cardiac: Regular Rhythm and S1/S2; Negative Murmur, Rub or Gallop
GI: Soft, Nontender, Nondistended and Normal Bowel Sounds
Musculoskeletal: No Clubbing, No Cyanosis and No Edema
Skin: Warm, Dry and Normal Turgor; Negative Rash
Neuro: Awake, Alert, Oriented and Other (mild ataxia of R hand but otherwise no FND); Negative Tremors
Psych: Calm
Data Reviewed
-
Labs: Labs Reviewed by me and Discussed with Nurse
--- NOTE | 2024-12-17 14:01 | PTCARENOTE ---
Report called and given to Christie GUAJARDO at [facility]. central service supply distributor is at 1430.
--- NOTE | 2024-12-17 14:58 | W.DCSUMMARY ---
Discharge Summary
Discharge Data
Date of Admission: 12/12/24
Date of Discharge: 12/17/24
Total time spent discharging patient (in min): 31
-
Pending Results: No
Hospital Course
Discharging provider: Garrett Gaines DO
Discharge disposition: SNF
Primary Hospital diagnoses:
Acute CVA of left rodrigez radiata
Urinary tract infection
Metabolic encephalopathy
Bilateral carotid stenosis (<50%)
Secondary chronic diagnoses:
Dementia
Thoracic aortic aneurysm
AAA s/p EVAR
Unspecified ILD
BPH
H/O multiple CVAs
Linq device in place
Hospital course:
84-year-old male that presented to the hospital with complaint of altered mentation that was noticed by his with slurring of his speech. Upon arrival CT head was unremarkable as well as CTA. Initial urinalysis was consistent with urinary
tract infection and he was started on empiric antibiotics. Urine culture ultimately returned for pansensitive E. coli and he was treated with 7 days of cephalosporin while in the hospital. He did have initial improvement with initiation of
antibiotics however patient continued to have slurring of speech noted by his . Underwent MRI brain without contrast that did show small acute to subacute CVA of the left rodrigez radiata that correlated with his deficits. Linq device in place
at time of arrival, was interrogated with 0% AF/AFL burden. High suspicion for cerebrovascular etiology. Neurology recommended transitioning the patient's home Plavix to Brilinta and continue with high intensity statin. Neurological status was
monitored and he had no acute deficits noted. Was ultimately discharged to SNF after PT evaluation. Minimal residual deficits at time of his evaluation, speech appeared clear
Consultants:
Neurology: Joseph Baker MD
Important imaging findings:
CTA head and neck (12/11/2024)
IMPRESSION: No acute intracranial hemorrhage or extra-axial collection. Stable chronic changes including small region of old/remote posterior right temporal infarct, and small chronic white matter lacunar infarcts. No evidence to suggest acute large
vascular territory infarct at this time. Atrophy. Bilateral carotid bulb/ICA plaque formation, as described. However, estimated luminal diameter reduction of less than 50%. No [place] region aneurysm or stenosis. No cerebral artery
significant plaque, stenosis, thrombus, or occlusion
MRI brain without contrast (12/13/2024)
IMPRESSION: Small acute infarct involving the left rodrigez radiata at the level of the body of left lateral ventricle without mass effect. Mild chronic microvascular white matter ischemic change. Tiny chronic lacunar infarcts. Mild stable focal
encephalomalacia from remote infarct in the posterior right temporal lobe. 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
Procedural findings: N/A
Follow-up:
PCP in 1 to 2 weeks from discharge
OP neurology in 3 to 4 weeks on discharge
Repeat BMP and CBC at 1 week while at SNF
Discharge Plan
-
Patient Disposition: Group Home/SNF
Discharge Diagnosis/Procedures: Ischemic stroke
Urinary tract infection
Condition: Fair
Diet: Low Cholesterol and No added salt
Activity: As tolerated
Driving Restrictions: No driving
Bathing Restrictions: None
Blood Work: BMP and CBC 1 week after discharge from hospital
Others Tests: Consider P2Y levels as outpatient
Other Services: PT and OT
Activity Restrictions/Additional Instructions:
Follow-up with family provider within 1 to 2 weeks of discharge
Follow-up in office with neurology in 3 to 4 weeks after discharge
Instructions: Stroke
Referrals:
Ashley Causey CRNP [Specified Professional Personl] - in three to four weeks
Morgan Lerma MD [Family Provider] - in less than 1 week
Additional Discharge Medication Instructions: STOP taking Plavix 75 mg and START Brilinta 90 mg twice daily
Completed 7 days of antibiotics in the hospital for UTI. Does not require any further antibiotic treatment
Prescriptions:
New
ticagrelor [Brilinta] 90 mg Tablet
90 mg PO BID 30 Days Qty: 60 0RF
Continued
atorvastatin 40 mg tablet
40 mg PO HS
latanoprost 0.005 % Drops
1 drp BOTH EYES HS
multivit with min-folic acid [Multivitamin Gummies] 200 mcg Tablet,Chewable
1 tab PO DAILY
Discontinued
clopidogrel 75 mg tablet
75 mg PO DAILY
Discharge Orders:
Discharge Patient (As Directed); Ordered 12/17/24
Ordered By: Garrett Gaines
Discharge Date and Time
Discharge Date/Time: 12/17/24 14:55
Print Language: ROMANIAN
== END 2024-12-17 14:55 | DRG 64 ==
LOC: 3 WEST ACU 00:20
PROVIDERS: Emergency Medicine; ADMITTING PHYSICIAN Hospitalist; ATTENDING PHYSICIAN Internal Medicine; CONSULT PHYSICIAN Psychiatry & Neurology Neurology; EMERGENCY PHYSICIAN Emergency Medicine; FAMILY PHYSICIAN Internal Medicine Geriatric Medicine
DX: I63.512 Cerebral infarction due to unspecified occlusion or stenosis of left middle cerebral artery (principal); G93.41 Metabolic encephalopathy; N39.0 Urinary tract infection, site not specified; J84.9 Interstitial pulmonary disease, unspecified; G93.49 Other encephalopathy; I63.81 Other cerebral infarction due to occlusion or stenosis of small artery; I65.23 Occlusion and stenosis of bilateral carotid arteries; G30.9 Alzheimer's disease, unspecified; F02.80 Dementia in other diseases classified elsewhere, unspecified severity, without behavioral disturbance, psychotic disturbance, mood disturbance, and anxiety; N40.0 Benign prostatic hyperplasia without lower urinary tract symptoms; R47.1 Dysarthria and anarthria; B96.20 Unspecified Escherichia coli [E. coli] as the cause of diseases classified elsewhere; Z86.73 Personal history of transient ischemic attack (TIA), and cerebral infarction without residual deficits; I65.29 Occlusion and stenosis of unspecified carotid artery; G93.89 Other specified disorders of brain; I10 Essential (primary) hypertension; E78.00 Pure hypercholesterolemia, unspecified; Z86.79 Personal history of other diseases of the circulatory system; Z87.891 Personal history of nicotine dependence; Z79.82 Long term (current) use of aspirin; Z79.02 Long term (current) use of antithrombotics/antiplatelets; Z79.899 Other long term (current) drug therapy; Z86.16 Personal history of COVID-19; Z87.440 Personal history of urinary (tract) infections; Z66 Do not resuscitate
CPT/HCPCS: 51701; 70496; 70498; 70551; 80048; 80053; 80061; 81003; 81015; 82550; 82607; 83036; 85025; 87070; 87077; 87086; 87186; 92523; 92526; 92610; 93005; 93306; 96374; 97112; 97116; 97163; 97167; 97530; 97535; 99285; 99406; Q9967

== ENCOUNTER → 2024-12-22 11:33 | Outpatient (REF) | payer OTHER, SELFPAY ==
[2024-12-22 11:59] LABS: % Basophils 0.3 % (0-2); % Eosinophils 0.9 % (0-6); % Immature Granulocytes 0.6 % (0-0.5); % Lymphocytes 11.5 % (20.5-51.1); % Monocytes 10.6 % (1.7-9.3); % Neutrophils 76.1 % (42.2-75.2); Absolute Eosinophils 0.1 10^3/uL (0-0.7); Absolute Immature Granulocytes 0.1 10^3/uL (0-0.05); Absolute Lymphocytes 1.2 10^3/uL (1.2-3.4); Absolute Monocytes 1.1 10^3/uL (0.1-0.6); Absolute Neutrophils 7.7 10^3/uL (1.4-6.5); Hematocrit 35.2 % (39.0-52.0); Hemoglobin 11.8 g/dL (13.0-18.0); Mean Corp Hgb Conc. 33.5 g/dL (33.0-37.0); Mean Corpuscular Hgb 33.2 pg (27.0-31.0); Mean Corpuscular Volume 99.2 fL (80.0-94.0); Mean Platelet Volume 11.2 fL (7.4-10.4); Nucleated Red Blood Cells % 0 % (-); Platelet Count 127 10^3/uL (130-400); Red Blood Cell Count 3.55 10^6/uL (4.70-6.10); Red Cell Dist. Width 14.7 % (11.5-14.5); White Blood Cell Count 10.1 10^3/uL (4.8-10.8)
[2024-12-22 12:35] LABS: ALT (SGPT) 22 U/L (0-50); AST (SGOT) 19 U/L (17-59); Albumin 3.2 g/dl (3.5-5.0); Alkaline Phosphatase 64 U/L (38-126); Blood Urea Nitrogen 18 mg/dl (9-20); Calcium 8.5 mg/dl (8.4-10.2); Glucose 98 mg/dl (70-99); Total Bilirubin 1.1 mg/dl (0.2-1.3); Total Protein 5.5 g/dl (6.3-8.2); eGFR > 60.00
[2024-12-22 12:45] LABS: Carbon Dioxide 22 mmol/L (22-30); Chloride 112 mmol/L (98-107); Potassium 3.6 mmol/L (3.5-5.1); Sodium 144 mmol/L (135-145)
== END ==
LOC: OLABP 11:33
PROVIDERS: ATTENDING PHYSICIAN Family Medicine
DX: I10 Essential (primary) hypertension (principal); J84.9 Interstitial pulmonary disease, unspecified; N40.0 Benign prostatic hyperplasia without lower urinary tract symptoms; N39.0 Urinary tract infection, site not specified; I63.9 Cerebral infarction, unspecified; F03.90 Unspecified dementia, unspecified severity, without behavioral disturbance, psychotic disturbance, mood disturbance, and anxiety; E78.5 Hyperlipidemia, unspecified; G93.41 Metabolic encephalopathy; I65.29 Occlusion and stenosis of unspecified carotid artery
CPT/HCPCS: 36415; 80053; 85025